=== PATIENT | female | born 1950 | race African-American/Black ===

== ENCOUNTER → 2017-09-12 | Outpatient (CLI) | payer OTHER, MEDICARE ==
--- NOTE | 2017-09-12 14:25 | RADIOLOGY REPORT (SQ) ---
EXAM DESCRIPTION: CHEST PA/LATERAL COMPLETED DATE/TIME: 09/12/2017 12:26 pm REASON FOR STUDY: ACUTE BRONCITIS COMPARISON: 09/15/2009 EXAM PARAMETERS: NUMBER OF VIEWS: two views TECHNIQUE: Digital Frontal and Lateral radiographic views of the chest acquired. RADIATION DOSE: NA LIMITATIONS: none FINDINGS: LUNGS AND PLEURA: Trace left pleural effusion. No evidence of pulmonary edema or pneumoni a. MEDIASTINUM AND HILAR STRUCTURES: No masses or contour abnormalities. HEART AND VASCULAR STRUCTURES: Heart normal size. No evidence for failure. BONES: No acute findings. HARDWARE: None in the chest. OTHER: No other significant finding. IMPRESSION: Trace left pleural effusion. TECHNICAL DOCUMENTATION: JOB ID: [id number] [employer]- All Rights Reserved
== END ==
LOC: OD 11:44
PROVIDERS: ATTEND Internal Medicine
DX: J20.9 Acute bronchitis, unspecified (principal)
CPT/HCPCS: 71020

== ENCOUNTER 2017-09-23 01:47 | Emergency (ER) | payer OTHER, MEDICARE ==
[2017-09-23 02:48] LABS: ABSOLUTE EOSINOPHILS # (AUTO) 0.1 10^3/uL (0.0-0.6); ABSOLUTE LYMPHOCYTES (AUTO) 1.9 10^3/uL (0.5-4.7); ABSOLUTE MONOCYTES (AUTO) 0.3 10^3/uL (0.1-1.4); ABSOLUTE NEUT (AUTO) 4.7 10^3/uL (1.7-8.2); BASOPHILS % (AUTO) 0.7 % (0-2); HEMOGLOBIN 11.4 g/dL (12.0-15.5); HGB HCT DIFFERENCE -0.8; LYMPHOCYTES % (AUTO) 26.4 % (13-45); MEAN CORPUSCULAR HEMOGLOBIN 27.6 pg (27.0-33.4); MEAN CORPUSCULAR HGB CONC 32.7 g/dL (32.0-36.0); MEAN CORPUSCULAR VOLUME 84 fl (80-97); MONOCYTES % (AUTO) 4.7 % (3-13); RED BLOOD COUNT 4.15 10^6/uL (3.72-5.28); RED CELL DISTRIBUTION WIDTH 13.2 % (11.5-14.0); SEGMENTED NEUTROPHILS % (AUTO) 67.2 % (42-78)
[2017-09-23] MEDS ORDERED: DIAZEPAM INJ 10 MG/2 ML DISP.SYRIN IV ONE (02:52)
[2017-09-23 02:56] LABS: ALANINE AMINOTRANSFERASE 31 U/L (9-52); ALBUMIN 3.6 g/dL (3.5-5.0); ALKALINE PHOSPHATASE 83 U/L (38-126); ANION GAP 11 (5-19); ASPARTATE AMINO TRANSFERASE 23 U/L (14-36); BILIRUBIN,DIRECT 0.2 mg/dL (0.0-0.4); BILIRUBIN,TOTAL 0.3 mg/dL (0.2-1.3); BLOOD UREA NITROGEN 15 mg/dL (7-20); CALCIUM 8.8 mg/dL (8.4-10.2); CARBON DIOXIDE 30 mmol/L (22-30); CHLORIDE 101 mmol/L (98-107); CREATININE RESULT 0.65 mg/dL (0.52-1.25); GLUCOSE 95 mg/dL (75-110); POTASSIUM 3.7 mmol/L (3.6-5.0); SODIUM 141.7 mmol/L (137-145)
--- NOTE | 2017-09-23 02:59 | ER Document Report ---
ED General - General Chief Complaint: Flank Pain Stated Complaint: FLANK PAIN WHEN BREATHING Time Seen by Provider: 09/23/17 02:19 Information source: Patient TRAVEL OUTSIDE OF THE [place] IN LAST 30 DAYS: No - HPI Patient complains to provider of: left sided pain, worse with deep breath Onset: This morning Onset/Duration: Gradual Quality of pain: Sharp Severity: Moderate Associated symptoms: None Exacerbated by: Movement, Coughing, Deep breathing Relieved by: Denies Similar symptoms previously: No Recently seen / treated by doctor: No Notes: pt. recently treated for strep throat and lung infection. She states she started with left sided pain that is underneath her left breast and radiates around almost to her back area. She says she has never had this pain before. She states that it is worse with deep breaths and movement of her torso. 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 She also stated that on 2 occasions today she felt dizzy and lightheaded. 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 [employer] Lives with: Family Family History: Reviewed & Not Pertinent Patient has suicidal ideation: No Patient has homicidal ideation: No - Past Medical History Cardiac Medical History: Reports: Hx Hypertension Pulmonary Medical History: Reports: None Neurological Medical History: Reports: None Endocrine Medical History: Reports: None Renal/ Medical History: Reports: None Malignancy Medical History: Reports: None GI Medical History: Reports: None Musculoskeltal Medical History: Reports None, Reports Hx Arthritis Past Surgical History: Reports: Hx Gynecologic Surgery - D&C, Hx Hysterectomy, Hx Orthopedic Surgery - foot surgery , shoulder repair, Hx Tubal Ligation - Immunizations Hx Diphtheria, Pertussis, Tetanus Vaccination: Yes Review of Systems - Review of Systems Constitutional: denies: Chills, Diaphoresis, Fever EENT: No symptoms reported Cardiovascular: Dizziness, Lightheaded. denies: Syncope Respiratory: No symptoms reported Gastrointestinal: Poor appetite Musculoskeletal: Joint swelling - right hand. denies: Back pain, Joint pain, Muscle pain, Muscle stiffness, Neck pain, Deformity, Leg swelling, Ankle swelling Skin: No symptoms reported Hematologic/Lymphatic: No symptoms reported Neurological/Psychological: No symptoms reported Physical Exam - Vital signs Vitals: Temp Pulse Resp BP Pulse Ox 98.8 F 96 22 H 207/88 H 96 09/23/17 01:48 09/23/17 01:48 09/23/17 01:48 09/23/17 01:48 09/23/17 01:48 - Notes Notes: PHYSICAL EXAMINATION: GENERAL: Well-appearing, well-nourished and in mild distress. HEAD: Atraumatic, normocephalic. EYES: Pupils equal round and reactive to light, extraocular movements intact, conjunctiva are normal. ENT: Nares patent, oropharynx clear without exudates. Moist mucous membranes. NECK: Normal range of motion, supple without lymphadenopathy LUNGS: Breath sounds clear to auscultation bilaterally and equal. No wheezes rales or rhonchi. HEART: Regular rate and rhythm without murmurs. She has tenderness over her left lateral lower rib area that is worse with palpation. There is no rash there. There is no subcu emphysema or crepitance. ABDOMEN: Soft, nontender, nondistended abdomen. No guarding, no rebound. No masses appreciated. Female : deferred Musculoskeletal: Normal range of motion, no pitting or edema. No cyanosis. Patient's right hand is mildly swollen but nontender. NEUROLOGICAL: Cranial nerves grossly intact. Normal speech, normal gait. Normal sensory, motor exams PSYCH: Normal mood, normal affect. SKIN: Warm, Dry, normal turgor, no rashes or lesions noted. Course - Re-evaluation Re-evalutation: 09/23/17 03:01 Patient had not taken her blood pressure medication losartan/HCTZ so I did give that to her in the emergency department. 09/23/17 05:34 09/23/17 05:35 I reviewed the findings of the lab work as well as the CAT scan with the patient and her friend. I did tell the patient that she can take Motrin starting in about 8 hours because I am giving her 1 dose of Toradol for the pleuritic-like chest pain that she is experiencing. I did tell the patient that she has a small pleural effusion and I explained to her. I told her she has to follow-up the primary medical doctor in 2 weeks to make sure this has resolved. If the fluid is still present she may need further evaluation to determine the etiology. I did give patient a work note for today as I wanted her to rest. Patient verbalized understanding I answered all her questions she was discharged home in stable condition - Vital Signs Vital signs: Temp Pulse Resp BP Pulse Ox 98.8 F 99 22 H 207/88 H 97 09/23/17 01:55 09/23/17 01:55 09/23/17 01:48 09/23/17 01:55 09/23/17 01:55 - Laboratory Result Diagrams: 09/23/17 02:20 09/23/17 02:20 Laboratory results interpreted by me: 09/23/17 09/23/17 09/23/17 02:20 02:20 03:47 Hgb 11.4 L Hct 35.0 L D-Dimer 3.54 H Urine Blood SMALL H Urine Urobilinogen 2.0 H Ur Leukocyte Esterase SMALL H - Diagnostic Test Radiology reviewed: Image reviewed, Reports reviewed Radiology results interpreted by me: 09/23/17 05:35 no PE. small left pleural effusion. - EKG Interpretation by Me EKG shows normal: Sinus rhythm Rate: Normal Rhythm: PVC's [place]/QRS: RBBB Discharge - Discharge Clinical Impression: Pleural effusion Condition: Stable Disposition: HOME, SELF-CARE Admitting Provider: Nila Instructions: Pleural Effusion ([facility]), Pleurisy ([facility]) Additional Instructions: Please follow-up with the primary medical doctor within 2 weeks for reevaluation. If the pleural effusion has not resolved further evaluation and testing may be necessary to determine the etiology. He can take Motrin 800 mg by mouth every 8 hours with food for the next 3 days. Please start taking that around 2 PM this afternoon as I already gave you a dose of medication like Motrin in your IV prior to leaving the emergency department today. Return to emergency department immediately if you have fevers, shortness of breath, passing out or any other concerns. Referrals: ANTONINO MCDONALD MD [Primary Care Provider] - Follow up as needed
--- NOTE | 2017-09-23 03:21 | RADIOLOGY REPORT (SQ) ---
EXAM DESCRIPTION: CHEST PA/LAT CLINICAL HISTORY: cough COMPARISON: 09/12/2017 FINDINGS: Frontal and lateral views of the chest. Tortuosity of thoracic aorta. Heart is not enlarged. Minimal left basilar opacity and small left pleural effusion. No pneumothorax. Degenerative change of the spine. Upper abdominal soft tissues are unremarkable. Elevation the left hemidiaphragm. IMPRESSION: 1. Minimal left basilar opacity and small left pleural effusion. Not significantly changed.
[2017-09-23 04:09] LABS: AMORPHOUS SEDIMENT,URINE TRACE /HPF; APPEARANCE,URINE CLOUDY; BILIRUBIN,URINE NEGATIVE (NEGATIVE); GLUCOSE, URINE NEGATIVE (NEGATIVE); KETONES,URINE NEGATIVE (NEGATIVE); LEUKOCYTE ESTERASE,URINE SMALL (NEGATIVE); NITRITE,URINE NEGATIVE (NEGATIVE); PROTEIN,URINE NEGATIVE (NEGATIVE); URINE SPECIFIC GRAVITY 1.021
--- NOTE | 2017-09-23 04:41 | RADIOLOGY REPORT (SQ) ---
EXAM DESCRIPTION: CT of the chest with contrast. CLINICAL HISTORY: sob COMPARISON: None Available. TECHNIQUE: CT of the chest obtained following the uncomplicated intravenous administration of iodinated contrast. Reformatted images of the chest available for evaluation. FINDINGS: Chest: No pulmonary embolus identified. Visualized thyroid gland is unremarkable. Atherosclerotic calcification of the thoracic aorta. May vessels have normal anatomic configuration. Cardiomegaly. No pericardial effusion. Coronary artery atherosclerosis. Small hiatal hernia. Scattered mediastinal lymph nodes are not enlarged by CT criteria. Lung windows demonstrate small left pleural effusion and left basilar atelectasis. No abnormalities of the visualized trachea or airways. Limited images of the upper abdomen demonstrate no abnormalities of the visualized liver, spleen, pancreas, adrenal glands, gallbladder, or kidneys. No destructive osseous lesions. Degenerative spondylosis of the thoracic spine. DLP: 550 mGycm IMPRESSION: 1. Very small left pleural effusion with minimal left basilar atelectasis. 2. Small hiatal hernia. 3. Cardiomegaly with coronary artery atherosclerosis. This exam was performed according to our departmental dose-optimization program, which includes automated exposure control, adjustment of the mA and/or kV according to patient size and/or use of iterative reconstruction technique.
[2017-09-23] MEDS ORDERED: KETOROLAC TROMETHAMINE INJ/PF 30 MG/1 ML SDV IV ONE (05:33)
[2017-09-23 05:52] VITALS: BP 198/80
--- NOTE | 2017-09-23 06:47 | EKG REPORT ---
SEVERITY:- ABNORMAL ECG - SINUS RHYTHM VENTRICULAR PREMATURE COMPLEX PROBABLE LEFT ATRIAL ABNORMALITY RIGHT BUNDLE BRANCH BLOCK : Confirmed by: Chente Bonilla 23-Sep-2017 06:46:45
== END 2017-09-23 05:25 | disposition home or self-care (01) ==
LOC: ER 01:47
DX: J90 Pleural effusion, not elsewhere classified (principal); R10.9 Unspecified abdominal pain; R42 Dizziness and giddiness
CPT/HCPCS: 93005; 99285; 96374; 96375; 36415; 85025; 80053; 81001; 84484; 85379; 71020; 71260; 93010; J3360; J1885

== ENCOUNTER 2017-10-17 10:05 | Emergency (ER) | payer OTHER, MEDICARE ==
--- NOTE | 2017-10-17 10:11 | ER Document Report ---
ED General - General Stated Complaint: ABDOMINAL PAIN Time Seen by Provider: 10/17/17 10:09 Notes: This is a 66-year-old female complaining of right upper quadrant pain radiating to her right shoulder. Intermittent shortness of breath. Diagnosed with a pleural effusion recently. Scheduled for bronchoscopy today. Says she has on and off fevers for a week. History of diverticulitis but no change in bowel patterns at this time. TRAVEL OUTSIDE OF THE [place] IN LAST 30 DAYS: No - HPI Onset: Last week Onset/Duration: Gradual Quality of pain: Achy, Cramping Severity: Moderate Pain Level: 2 Associated symptoms: None Exacerbated by: Denies - Related Data Allergies/Adverse Reactions: aspirin [Aspirin] Adverse Reaction (Intermediate, Verified 05/26/14 17:55) Nausea Home Medications: Current Home Medications Hydrochlorothiazide [Hydrochlorothiazide] 1 tab PO DAILY 10/17/17 [History] Past Medical History - General Information source: Patient - Social History Smoking Status: Never Smoker Frequency of alcohol use: None Drug Abuse: None Lives with: Family Family History: Reviewed & Not Pertinent - Past Medical History Cardiac Medical History: Reports: Hx Hypertension Renal/ Medical History: Denies: Hx Peritoneal Dialysis Musculoskeltal Medical History: Reports Hx Arthritis Past Surgical History: Reports: Hx Gynecologic Surgery - D&C, Hx Hysterectomy, Hx Orthopedic Surgery - foot surgery , shoulder repair, Hx Tubal Ligation - Immunizations Hx Diphtheria, Pertussis, Tetanus Vaccination: Yes Review of Systems - Review of Systems Constitutional: No symptoms reported EENT: No symptoms reported Cardiovascular: No symptoms reported Respiratory: No symptoms reported Gastrointestinal: Abdominal pain Genitourinary: No symptoms reported Female Genitourinary: No symptoms reported Musculoskeletal: No symptoms reported Skin: No symptoms reported Hematologic/Lymphatic: No symptoms reported Neurological/Psychological: No symptoms reported Physical Exam - Vital signs Vitals: Temp Pulse Resp BP Pulse Ox 99.4 F 102 H 18 130/64 H 96 10/17/17 10:22 10/17/17 10:22 10/17/17 10:22 10/17/17 10:22 10/17/17 10:22 Interpretation: Normal - General General appearance: Appears well, Alert - HEENT Head: Normocephalic, Atraumatic Eyes: Normal Pupils: PERRL - Respiratory Respiratory status: No respiratory distress Chest status: Nontender Breath sounds: Normal Chest palpation: Normal - Cardiovascular Rhythm: Regular Heart sounds: Normal auscultation Murmur: No - Abdominal Inspection: Normal Distension: No distension Bowel sounds: Normal Tenderness: Tender, Guarding. No: Rebound Organomegaly: No organomegaly - Back Back: Normal, Nontender - Extremities General upper extremity: Normal inspection, Nontender, Normal color, Normal ROM , Normal temperature General lower extremity: Normal inspection, Nontender, Normal color, Normal ROM , Normal temperature, Normal weight bearing. No: Stephane's sign - Neurological Neuro grossly intact: Yes Cognition: Normal Orientation: AAOx4 [place] Coma Scale Eye Opening: Spontaneous [place] Coma Scale Verbal: Oriented [place] Coma Scale Motor: Obeys Commands [place] Coma Scale Total: 15 Speech: Normal Motor strength normal: LUE, RUE, LLE, RLE Sensory: Normal - Psychological Associated symptoms: Normal affect, Normal mood - Skin Skin Temperature: Warm Skin Moisture: Dry Skin Color: Normal Course - Re-evaluation Re-evalutation: 10/17/17 13:42 Patient with extremely enlarged heart as seen on x-ray as compared to prior. Uncertain etiology. Radiologist was concerned enough to call as well. Ordered stat echocardiogram. Patient does have gallstones and sludge in her gallbladder.. BNP ordered. We will continue to workup 10/17/17 16:05 Patient feeling a little bit better. Echocardiogram was completed. 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 Patient has a normal EF. Does have some dilated right heart failure. Does have a trace pericardial effusion . Has some bilateral pleural effusions. Will consult with surgeon regarding her gallbladder to make sure this is not acute cholecystitis. Unlikely at this point. Patient is afebrile and in no acute distress at this time. The chest x-ray is significantly different than prior with a fairly enlarged right heart. Uncertain why. Could have pulmonary hypertension. Patient will likely need to be admitted. Will consult with surgeon and house builder as well as loss prevention guard come up with the plan of action. 10/17/17 16:21 10/17/17 16:31 CT angiogram has been ordered to make sure that this abnormally dilated right heart is not due to a embolism. Patient did have a CT chest approximately 20 days ago but was unremarkable for PE. Have ordered the angiogram at this time. Patient has been signed over to Dr. Todd for review of the angiogram and for treatment as appropriate including possible transfer for her to the facility that could do a right heart workup. - Vital Signs Vital signs: Temp Pulse Resp BP Pulse Ox 99.4 F 102 H 24 H 133/73 H 99 10/17/17 10:22 10/17/17 10:22 10/17/17 14:01 10/17/17 14:01 10/17/17 14:01 - Laboratory Result Diagrams: 10/17/17 13:28 10/17/17 13:28 Laboratory results interpreted by me: 10/17/17 10/17/17 10/17/17 12:27 13:28 13:28 WBC 3.8 L Hct 35.9 L Sodium 132.3 L Chloride 91 L AST 48 H Urine Protein 30 H Urine Ketones TRACE H Urine Blood MODERATE H Urine Urobilinogen 4.0 H - EKG Interpretation by Me EKG shows normal: Sinus rhythm, [place], QRS Complexes, ST-T Waves [place]/QRS: RBBB When compared to previous EKG there are: No significant change Discharge - Discharge Clinical Impression: Pleural effusion, Right upper quadrant pain Referrals: BERNICE MARAVILLA MD [Primary Care Provider] - Follow up as needed
[2017-10-17] MEDS ORDERED: FENTANYL CITRATE INJ/PF 100 MCG/2 ML AMPUL IV PRN (10:36)
[2017-10-17] MEDS: ONDANSETRON 4 MG TAB.RAPDIS PO PRN (12:18)
[2017-10-17 13:02] LABS: APPEARANCE,URINE CLOUDY; BILIRUBIN,URINE NEGATIVE (NEGATIVE); GLUCOSE, URINE NEGATIVE (NEGATIVE); KETONES,URINE TRACE mg/dL (NEGATIVE); LEUKOCYTE ESTERASE,URINE NEGATIVE (NEGATIVE); NITRITE,URINE NEGATIVE (NEGATIVE); PROTEIN,URINE 30 mg/dL (NEGATIVE); URINE SPECIFIC GRAVITY 1.019
[2017-10-17 13:03] LABS: COLOR,URINE YELLOW
--- NOTE | 2017-10-17 13:14 | RADIOLOGY REPORT (SQ) ---
EXAM DESCRIPTION: CHEST PA/LAT COMPLETED DATE/TIME: 10/17/2017 12:53 pm REASON FOR STUDY: chest pain COMPARISON: CT chest 09/23/2017 Two-view chest 09/23/2017, 09/12/2017 EXAM PARAMETERS: NUMBER OF VIEWS: two views TECHNIQUE: Digital Frontal and Lateral radiographic views of the chest acquired. RADIATION DOSE: NA LIMITATIONS: none FINDINGS: Over the series of exams, patient has developed massive cardiac silhouette enlargement. F indings are worrisome for large pericardial effusion. LUNGS AND PLEURA: Trace right, small left pleural effusion. There is bibasilar airspace disease atelectasis versus pneumonia. No pneumothorax. MEDIASTINUM AND HILAR STRUCTURES: No masses or contour abnormalities. HEART AND VASCULAR STRUCTURES: Today's study demonstrates massive cardiac silhouette size enlargement . This is new compared to 09/12/2017. Question pericardial effusion BONES: Osteoporotic. No acute change. HARDWARE: None in the chest. OTHER: No other significant finding. IMPRESSION: Significant enlargement of the cardiac silhouette size compared to 09/12/2017, question l arge pericardial effusion. There is mild bibasilar airspace disease with small pleural effusions, left slightly greater than rig ht TECHNICAL DOCUMENTATION: JOB ID: [id number] [employer]- All Rights Reserved
--- NOTE | 2017-10-17 13:24 | RADIOLOGY REPORT (SQ) ---
EXAM DESCRIPTION: U/S ABDOMEN LIMITED W/O DOP COMPLETED DATE/TIME: 10/17/2017 1:02 pm REASON FOR STUDY: RUQ pain COMPARISON: CT chest 09/23/2017 TECHNIQUE: Dynamic and static grayscale images acquired of the abdomen and recorded on PACS. Additio nal selected color Doppler and spectral images recorded. LIMITATIONS: Midline bowel gas FINDINGS: PANCREAS: Midline pancreas unremarkable LIVER: No masses. Echotexture normal. LIVER VASCULATURE: Normal directional flow of the main portal vein and hepatic veins. GALLBLADDER: Stones and sludge are present in the gallbladder. No gallbladder wall thickening or per icholecystic fluid. ULTRASOUND-DETECTED LINTON'S SIGN: Negative. INTRAHEPATIC DUCTS AND COMMON DUCT: CBD and intrahepatic ducts normal caliber. No filling defects. D istal most common duct not well seen due to duodenum gas INFERIOR VENA CAVA: Normal flow. AORTA: No aneurysm. RIGHT KIDNEY: Normal size. Normal echogenicity. No solid or suspicious masses. No hydronephrosis. No calcifications. PERITONEAL AND RIGHT PLEURAL SPACE: Trace right pleural fluid OTHER: No other significant findings. IMPRESSION: Stones and sludge in the gallbladder. No gallbladder wall thickening, pericholecystic f luid, or sonographic Linton's sign Trace right pleural fluid TECHNICAL DOCUMENTATION: JOB ID: [id number] [employer]- All Rights Reserved
[2017-10-17 13:48] LABS: ABSOLUTE LYMPHOCYTES (AUTO) 0.9 10^3/uL (0.5-4.7); ABSOLUTE MONOCYTES (AUTO) 0.2 10^3/uL (0.1-1.4); ABSOLUTE NEUT (AUTO) 2.6 10^3/uL (1.7-8.2); BASOPHILS % (AUTO) 0.5 % (0-2); EOSINOPHILS % (AUTO) 0.8 % (0-6); HEMATOCRIT 35.9 % (36.0-47.0); LYMPHOCYTES % (AUTO) 24.3 % (13-45); MEAN CORPUSCULAR HEMOGLOBIN 27.1 pg (27.0-33.4); MEAN CORPUSCULAR HGB CONC 33.4 g/dL (32.0-36.0); MEAN CORPUSCULAR VOLUME 81 fl (80-97); MONOCYTES % (AUTO) 6.1 % (3-13); PLATELET COUNT 383 10^3/uL (150-450); RED BLOOD COUNT 4.43 10^6/uL (3.72-5.28); RED CELL DISTRIBUTION WIDTH 13.7 % (11.5-14.0); SEGMENTED NEUTROPHILS % (AUTO) 68.3 % (42-78); TOTAL CELLS COUNTED % (AUTO) 100 %; WHITE BLOOD COUNT 3.8 10^3/uL (4.0-10.5)
[2017-10-17 14:13] LABS: NT PRO BNP 291 pg/mL (5-900)
[2017-10-17 14:14] LABS: ALANINE AMINOTRANSFERASE 33 U/L (9-52); ALBUMIN 3.5 g/dL (3.5-5.0); ALKALINE PHOSPHATASE 116 U/L (38-126); ANION GAP 13 (5-19); ASPARTATE AMINO TRANSFERASE 48 U/L (14-36); BILIRUBIN,DIRECT 0.4 mg/dL (0.0-0.4); BILIRUBIN,TOTAL 0.5 mg/dL (0.2-1.3); BLOOD UREA NITROGEN 18 mg/dL (7-20); CALCIUM 8.9 mg/dL (8.4-10.2); CARBON DIOXIDE 28 mmol/L (22-30); CHLORIDE 91 mmol/L (98-107); GLUCOSE 101 mg/dL (75-110); POTASSIUM 4.1 mmol/L (3.6-5.0); SODIUM 132.3 mmol/L (137-145); TOTAL PROTEIN 7.8 g/dL (6.3-8.2)
[2017-10-17 14:15] LABS: TROPONIN I < 0.012 ng/mL
--- NOTE | 2017-10-17 17:11 | EKG REPORT ---
SEVERITY:- ABNORMAL ECG - SINUS RHYTHM RIGHT BUNDLE BRANCH BLOCK : Confirmed by: Micheal Borges MD 17-Oct-2017 17:10:47
--- NOTE | 2017-10-17 17:21 | PDOC CONSULTATION ---
Consultation Consult Date: 10/17/17 Attending physician:: AMANDA ZAMAN Consult reason:: Gallbladder disease History of Present Illness Admission Date/PCP: BERNICE MARAVILLA MD History of Present Illness: KAYE KILPATRICK is a 66 year old female Who presents emergency department complaining of a several month history of shortness of breath abdominal pain feeling poorly. Currently she has been seen on an outpatient basis by multiple providers and given multiple treatments for what was felt to be musculoskeletal problems. She was seen in the emergency department last month where she was worked up for pulmonary embolus and this was negative. Patient was evaluated by Dr. Rueda, talent sourcer, who performed an echocardiogram which revealed preserved left ventricular ejection fraction, but the right heart was dilated. Patient had a gallbladder ultrasound which showed sludge. Surgery was consulted. As stated patient has been feeling poorly for several months. She is still eating, having bowel movements and denies nausea vomiting. Of note patient has a history of hepatitis C, received antiviral therapy in 2017. Past Medical History Cardiac Medical History: Reports: Hypertension Musculoskeltal Medical History: Reports: Arthritis Infectious Medical History: Reports: Hepatitis C Past Surgical History Past Surgical History: Reports: Hysterectomy, Orthopedic Surgery - foot surgery , shoulder repair, Tubal Ligation Social History Lives with: Family Smoking Status: Never Smoker Family History Family History: Reviewed & Not Pertinent Parental Family History Reviewed: Yes Children Family History Reviewed: Yes Sibling(s) Family History Reviewed.: Yes Medication/Allergy Home Medications: Hydrochlorothiazide [Hydrochlorothiazide] 1 tab PO DAILY 10/17/17 Allergies/Adverse Reactions: aspirin [Aspirin] Adverse Reaction (Intermediate, Verified 05/26/14 17:55) Nausea Review of Systems Constitutional: PRESENT: night sweats Eyes: ABSENT: visual disturbances Ears: ABSENT: hearing changes Cardiovascular: PRESENT: dyspnea on exertion, edema, orthropnea Respiratory: PRESENT: dyspnea Musculoskeletal: PRESENT: joint swelling Physical Exam Vital Signs: Temp Pulse Resp BP Pulse Ox 99.4 F 102 H 24 H 133/73 H 99 10/17/17 10:22 10/17/17 10:22 10/17/17 14:01 10/17/17 14:01 10/17/17 14:01 Intake & Output 10/16/17 10/17/17 10/18/17 06:59 06:59 06:59 Weight 100.244 kg General appearance: PRESENT: mild distress, other - Patient appears very sleepy Eye exam: PRESENT: EOMI Mouth exam: PRESENT: dry mucosa Neck exam: PRESENT: full ROM Respiratory exam: PRESENT: rales Cardiovascular exam: PRESENT: RRR GI/Abdominal exam: PRESENT: other - Soft, slightly distended. No peritoneal signs. There is right upper quadrant and left upper quadrant tenderness. Focused psych exam: PRESENT: other - Awake and alert and oriented 4. Results Laboratory Results: 10/17/17 13:28 10/17/17 13:28 10/17/17 10/17/17 10/17/17 12:27 13:28 13:28 WBC 3.8 L RBC 4.43 Hgb 12.0 Hct 35.9 L MCV 81 MCH 27.1 MCHC 33.4 RDW 13.7 Plt Count 383 Seg Neutrophils % 68.3 Lymphocytes % 24.3 Monocytes % 6.1 Eosinophils % 0.8 Basophils % 0.5 Absolute Neutrophils 2.6 Absolute Lymphocytes 0.9 Absolute Monocytes 0.2 Absolute Eosinophils 0.0 Absolute Basophils 0.0 Sodium 132.3 L Potassium 4.1 Chloride 91 L Carbon Dioxide 28 Anion Gap 13 BUN 18 Creatinine 0.71 Est GFR ( Amer) > 60 Est GFR (Non-Af Amer) > 60 Glucose 101 Calcium 8.9 Total Bilirubin 0.5 AST 48 H ALT 33 Alkaline Phosphatase 116 Total Protein 7.8 Albumin 3.5 Lipase 112.0 Urine Color YELLOW Urine Appearance CLOUDY Urine pH 5.0 Ur Specific [place] 1.019 Urine Protein 30 H Urine Glucose (UA) NEGATIVE Urine Ketones TRACE H Urine Blood MODERATE H Urine Nitrite NEGATIVE Ur Leukocyte Esterase NEGATIVE Urine WBC (Auto) 6 Urine RBC (Auto) 7 10/17/17 13:28 Troponin I < 0.012 NT-Pro-B Natriuret Pep 291 Impressions: Abdomen Ultrasound 10/17/17 10:19 IMPRESSION: Stones and sludge in the gallbladder. No gallbladder wall thickening, pericholecystic fluid, or sonographic Linton's sign Trace right pleural fluid Chest X-Ray 10/17/17 11:51 IMPRESSION: Significant enlargement of the cardiac silhouette size compared to 09/12/2017, question large pericardial effusion. There is mild bibasilar airspace disease with small pleural effusions, left slightly greater than right Assessment & Plan - Diagnosis (1) Right upper quadrant pain Plan: The patient has chronic, worsening shortness of breath, upper abdominal pain, right-sided worse than left. Reviewing her chest x-ray from last month compared to today, and her CT scan from last month as well as echocardiogram today, it appears the patient is suffering from progressive cardio respiratory decompensation. I believe the right sided heart dysfunction may be contributing to the congestion well as peripheral edema. The gallbladder with sludge is an incidental finding. Recommendations: 1. I do not recommend surgical intervention on the gallbladder. 2. I suggested to the emergency department as well as Dr. Rueda that further consideration be given to the cardiorespiratory problem: Frequent pulmonary embolus may need to be ruled out again. - Time Time Spent: 50 to 70 Minutes Smoking Cessation Education: over 10 minutes
--- NOTE | 2017-10-17 19:13 | RADIOLOGY REPORT (SQ) ---
EXAM DESCRIPTION: CT CHEST WITHOUT COMPLETED DATE/TIME: 10/17/2017 6:57 pm REASON FOR STUDY: sob, chest pain COMPARISON: 09/23/2017 TECHNIQUE: CT scan performed of the chest without intravenous contrast. Images reviewed with lung, soft tissue and bone windows. Reconstructed coronal and sagittal MPR images reviewed. All images st ored on PACS. All CT scanners at this facility use dose modulation, iterative reconstruction, and/or weight based d osing when appropriate to reduce radiation dose to as low as reasonably achievable (ALARA). [facility]: Dose Right [facility]: CareDose [facility]: Dose Right [facility]: Teradose 4D [facility]: Smart Medbox RADIATION DOSE: CT Rad equipment meets quality standard of care and radiation dose reduction techniq ues were employed. CTDIvol: 2.8 - 42.7 mGy. DLP: 558 mGy-cm. mGy. LIMITATIONS: Inadequate peripheral IV access. FINDINGS: LUNGS AND PLEURA: Trace pleural effusions. Subsegmental dependent airspace disease. HILAR AND MEDIASTINAL STRUCTURES: No identified masses or abnormal nodes. No obvious aneurysm. HEART AND VASCULAR STRUCTURES: Moderate pericardial effusion. UPPER ABDOMEN: No acute findings. THYROID AND OTHER SOFT TISSUES: No masses. No adenopathy. BONES: No significant finding. HARDWARE: None in the chest. OTHER: No other significant findings. IMPRESSION: Moderate pericardial effusion, which is a new finding. Small pleural effusions and depe ndent airspace disease. TECHNICAL DOCUMENTATION: JOB ID: [id number] Quality ID # [id number]: Final reports with documentation of one or more dose reduction techniques (e.g., Au tomated exposure control, adjustment of the mA and/or kV according to patient size, use of iterative reconstruction technique) 2010 [employer]- All Rights Reserved
[2017-10-17] MEDS ORDERED: KETOROLAC TROMETHAMINE INJ/PF 30 MG/1 ML SDV IV ONE (19:22)
--- NOTE | 2017-10-17 19:46 | XCELERA REPORT ---
[address] [address] Transthoracic Echocardiogram Report Name: KAYE KILPATRICK Age: 66 yrs Gender: Female : 1950 Patient Status: Emergency Patient Location: ER Study Date: 10/17/2017 03:00 PM Height: 64 in Weight: 221 lb BSA: 2.0 m2 Procedure: A two-dimensional transthoracic echocardiogram with color flow and Doppler was performed. The study was technically difficult with many images being suboptimal in quality. Reason For Study: CARDIOMEGALY (Enlarged Heart). History: CARDIOMEGALY (Enlarged Heart). Ordering Physician: JOELLEN WARD Performed By: Daria Lopez Interpretation Summary Recommend ZAINAB and Right heart cayh.( For RH pressures and assessment of TR severity. The left ventricle is normal in size. There is normal left ventricular wall thickness. LV EF is > than 65% Left ventricular systolic function is normal. Doppler measurements suggest impaired left ventricular relaxation, which is associated with grade I/IV or mild diastolic dysfunction The left ventricular wall motion is normal. There is no thrombus. There is no evidence of mitral valve prolapse. There is no mitral valve stenosis. There is a trace to mild amount of mitral regurgitation The aortic valve is mildly calcified There is no aortic valve stenosis There is no LVOT obstruction. No aortic regurgitation is present. There is no tricuspid stenosis. Poor interogation of Tricuspid valve.Probably moderate TR.Difficult to assess RVSP.Probaly lies between 52 to 68 mm of Hg , with RA mean of 5.Needs Right heart for accurate Right heart pressures. There is no pulmonic valvular stenosis. There is a trace amount of pulmonic regurgitation Small pericardial effusion eith no tamponade. Recommend ZAINAB and Right heart cayh.( For RH pressures and assessment of TR severity. Probably normal LA andprobably mildly enalarged RA sizes. MMode/2D Measurements & Calculations RVDd: 2.9 cm LVIDd: 4.2 cm FS: 38.8 % Ao root diam: 2.3 cm IVSd: 0.95 cm LVIDs: 2.6 cm EDV(Teich): 79.8 ml LVPWd: 0.90 cm ESV(Teich): 24.3 ml Ao root area: 4.1 cm2 EF(Teich): 69.5 % Doppler Measurements & Calculations MV E max hernan: MV dec slope: Ao V2 max: LV V1 max P.4 cm/sec 146.2 cm/sec 5.1 mmHg MV A max hernan: 303.0 cm/sec2 Ao max PG: LV V1 max: 76.6 cm/sec MV dec time: 8.6 mmHg 113.1 cm/sec MV E/A: 0.88 0.22 sec PA V2 max: PI end-d hernan: TR max hernan: 93.3 cm/sec 104.2 cm/sec 319.3 cm/sec PA max PG: TR max P.5 mmHg 42.6 mmHg Left Ventricle The left ventricle is normal in size. There is normal left ventricular wall thickness. LV EF is > than 65%. Left ventricular systolic function is normal. Doppler measurements suggest impaired left ventricular relaxation, which is associated with grade I/IV or mild diastolic dysfunction. The left ventricular wall motion is normal. There is no thrombus. There is no ventricular septal defect visualized. Right Ventricle Not well visualised.Probably mild RVH , with enlarged RV.Probably normal RV systolic function. Atria Probably normal LA andprobably mildly enalarged RA sizes. The interatrial septum is intact with no evidence for an atrial septal defect. Mitral Valve There is no evidence of mitral valve prolapse. There is no vegetation seen on the mitral valve. There is no mitral valve stenosis. There is a trace to mild amount of mitral regurgitation. Aortic Valve The aortic valve is mildly calcified. There is no aortic valvular vegetation. There is no aortic valve stenosis. There is no LVOT obstruction. No aortic regurgitation is present. Tricuspid Valve There is no tricuspid stenosis. Poor interogation of Tricuspid valve.Probably moderate TR.Difficult to assess RVSP.Probaly lies between 52 to 68 mm of Hg , with RA mean of 5.Needs Right heart for accurate Right heart pressures. Pulmonic Valve There is no pulmonic valvular stenosis. There is a trace amount of pulmonic regurgitation. Great Vessels The aortic root is normal size. Effusions Small pericardial effusion eith no tamponade. : JOELLEN WARD > Lien Rueda
[2017-10-17] MEDS ORDERED: TRAZODONE HCL 50 MG TABLET PO ONE (22:48)
[2017-10-17] MEDS ORDERED: TRAMADOL HCL 50 MG TABLET PO PRN (22:48)
[2017-10-18] MEDS ORDERED: ENOXAPARIN SODIUM INJ 30 MG/0.3 ML DISP.SYRIN SUBCUT SCH (06:30)
[2017-10-18] MEDS ORDERED: ENOXAPARIN SODIUM INJ 30 MG/0.3 ML DISP.SYRIN SUBCUT ONE (08:30)
--- NOTE | 2017-10-18 15:25 | ER Document Report ---
Doctor's Note Notes: 10/18/17 15:25 Patient complains of pain all over. She was given Ultram earlier this morning and that has not helped. I will give her a single Percocet and see if that helps.
[2017-10-18] MEDS ORDERED: OXYCODONE-ACETAMINOPHEN 5-325 MG TABLET PO ONE (15:26)
[2017-10-18] MEDS: ENOXAPARIN SODIUM INJ 30 MG/0.3 ML DISP.SYRIN SUBCUT SCH (19:26)
--- NOTE | 2017-10-19 00:44 | ER Document Report ---
Doctor's Note Notes: 10/19/17 00:42 Patient requests pain medication. States Percocet worked well previously, minimal benefit from tramadol. Vital signs are stable. Percocet 1 tab every 4 hours as needed ordered.
[2017-10-19] MEDS: OXYCODONE-ACETAMINOPHEN 5-325 MG TABLET PO PRN ×2 (00:46→13:13)
--- NOTE | 2017-10-19 06:14 | ER Document Report ---
Doctor's Note Notes: 10/19/17 06:13 I did a quick reevaluation the patient. She says she has no pain or nausea. She feels well. Her vital signs have been stable throughout the night. She has no concerns or complaints at this time. We are still waiting for bed placement at the living facility. Dictation of this chart was performed using voice recognition software; therefore, there may be some unintended grammatical errors.
[2017-10-19] MEDS: ENOXAPARIN SODIUM INJ 30 MG/0.3 ML DISP.SYRIN SUBCUT SCH ×2 (06:23→19:02)
[2017-10-19] MEDS: ONDANSETRON 4 MG TAB.RAPDIS PO PRN (06:52)
--- NOTE | 2017-10-19 14:55 | RADIOLOGY REPORT (SQ) ---
EXAM DESCRIPTION: CHEST PA/LAT COMPLETED DATE/TIME: 10/19/2017 2:46 pm REASON FOR STUDY: chest pain COMPARISON: 10/17/2017. TECHNIQUE: Frontal and lateral radiographic views of the chest acquired. NUMBER OF VIEWS: Two view. LIMITATIONS: None. FINDINGS: LUNGS AND PLEURA: Persistent diminished aeration in the left base with trace bilateral ple ural fluid. Slightly progressive vascular congestion. No pneumothorax. MEDIASTINUM AND HILAR STRUCTURES: Stable contours. HEART AND VASCULAR STRUCTURES: Marked cardiomegaly, as before. Patient has known pericardial effusio n. BONES: No acute findings. HARDWARE: None in the chest. OTHER: No other significant finding. IMPRESSION: 1. Vascular congestion is slightly progressive. Otherwise similar changes to prior. TECHNICAL DOCUMENTATION: JOB ID: [id number] [employer] [facility]- All Rights Reserved
[2017-10-19 15:48] LABS: ABSOLUTE EOSINOPHILS # (AUTO) 0.1 10^3/uL (0.0-0.6); ABSOLUTE LYMPHOCYTES (AUTO) 1.1 10^3/uL (0.5-4.7); ABSOLUTE MONOCYTES (AUTO) 0.4 10^3/uL (0.1-1.4); BASOPHILS % (AUTO) 0.8 % (0-2); EOSINOPHILS % (AUTO) 1.2 % (0-6); HEMATOCRIT 31.4 % (36.0-47.0); HEMOGLOBIN 10.1 g/dL (12.0-15.5); LYMPHOCYTES % (AUTO) 19.7 % (13-45); MEAN CORPUSCULAR HEMOGLOBIN 26.5 pg (27.0-33.4); MEAN CORPUSCULAR HGB CONC 32.2 g/dL (32.0-36.0); MEAN CORPUSCULAR VOLUME 82 fl (80-97); MONOCYTES % (AUTO) 6.6 % (3-13); PLATELET COUNT 368 10^3/uL (150-450); RED BLOOD COUNT 3.81 10^6/uL (3.72-5.28); RED CELL DISTRIBUTION WIDTH 13.7 % (11.5-14.0); SEGMENTED NEUTROPHILS % (AUTO) 71.7 % (42-78); TOTAL CELLS COUNTED % (AUTO) 100 %; WHITE BLOOD COUNT 5.5 10^3/uL (4.0-10.5)
[2017-10-19 16:11] LABS: ALANINE AMINOTRANSFERASE 39 U/L (9-52); ALBUMIN 3.2 g/dL (3.5-5.0); ALKALINE PHOSPHATASE 105 U/L (38-126); ANION GAP 10 (5-19); ASPARTATE AMINO TRANSFERASE 70 U/L (14-36); BILIRUBIN,DIRECT 0.5 mg/dL (0.0-0.4); BILIRUBIN,TOTAL 0.6 mg/dL (0.2-1.3); BLOOD UREA NITROGEN 27 mg/dL (7-20); CALCIUM 8.8 mg/dL (8.4-10.2); CARBON DIOXIDE 30 mmol/L (22-30); CHLORIDE 90 mmol/L (98-107); GLUCOSE 110 mg/dL (75-110); LIPASE 119.8 U/L (23-300); POTASSIUM 4.7 mmol/L (3.6-5.0); SODIUM 130.4 mmol/L (137-145); TOTAL PROTEIN 7.2 g/dL (6.3-8.2)
[2017-10-19 16:30] LABS: TROPONIN I 0.077 ng/mL
[2017-10-19] MEDS ORDERED: ENOXAPARIN SODIUM INJ 30 MG/0.3 ML DISP.SYRIN SUBCUT SCH (17:00)
--- NOTE | 2017-10-19 18:38 | EKG REPORT ---
SEVERITY:- ABNORMAL ECG - SINUS TACHYCARDIA RIGHT BUNDLE BRANCH BLOCK : Confirmed by: Micheal Borges MD 19-Oct-2017 18:38:00
[2017-10-19] MEDS ORDERED: ACETAMINOPHEN 325 MG TABLET PO ONE (19:15)
[2017-10-19 19:46] VITALS: BP 122/64
== END 2017-10-19 19:46 | disposition short-term general hospital (02) ==
LOC: ER 10:05
DX: J90 Pleural effusion, not elsewhere classified (principal); R10.11 Right upper quadrant pain; M25.511 Pain in right shoulder
CPT/HCPCS: 93005 ×2; 99285; 96372; 96374; 96375; 36415; 83690; 85025; 80053; 81001; 84484; 83880; 93306; 71046 ×2; 76705; 71250; 93010 ×2; S0119 ×2; J3010; J1885; J1650 ×2

== ENCOUNTER 2017-11-20 20:58 | Emergency (ER) | payer OTHER, MEDICARE ==
[2017-11-20 21:09] VITALS: BP 171/75
== END 2017-11-20 21:00 | disposition left against medical advice (07) ==
LOC: ER 20:58
DX: Z53.21 Procedure and treatment not carried out due to patient leaving prior to being seen by health care provider (principal)

== ENCOUNTER 2017-12-01 17:38 | Inpatient (IN) | payer OTHER, MEDICARE ==
[2017-12-01] MEDS ORDERED: HYDROMORPHONE HCL INJ/PF 2 MG/ML AMPULE IV ONE (18:18)
[2017-12-01] MEDS ORDERED: ONDANSETRON HCL INJ/PF 4 MG/2 ML SDV IV ONE (18:18)
[2017-12-01] MEDS ORDERED: NORMAL SALINE 1000 ML 1,000 ML IV ONE ×3 (18:18→23:33)
--- NOTE | 2017-12-01 18:19 | ER Document Report ---
ED Medical Screen (RME) - General Chief Complaint: Vomiting Stated Complaint: STOMACH PAIN Time Seen by Provider: 12/01/17 18:15 Mode of Arrival: Ambulatory Information source: Patient Notes: 67-year-old female presents with epigastric abdominal pain vomiting over the past 3 hours. Patient denies any previous similar episodes patient has had a total hysterectomy no other abdominal surgeries I have greeted and performed a rapid initial assessment of this patient. A comprehensive ED assessment and evaluation of the patient, analysis of test results and completion of the medical decision making process will be conducted by additional ED providers. PHYSICAL EXAMINATION: GENERAL: appears in moderate distress HEAD: Atraumatic, normocephalic. EYES: Pupils equal round extraocular movements intact, conjunctiva are normal. ENT: Nares patent NECK: Normal range of motion LUNGS: No respiratory distress Musculoskeletal: Normal range of motion NEUROLOGICAL: Normal speech, normal gait. PSYCH: Normal mood, normal affect. SKIN: Warm, Dry, normal turgor, no rashes or lesions noted. TRAVEL OUTSIDE OF THE [place] IN LAST 30 DAYS: No - Related Data Allergies/Adverse Reactions: aspirin [Aspirin] Adverse Reaction (Intermediate, Verified 11/20/17 21:49) Nausea Past Medical History - Social History Frequency of alcohol use: None - Past Medical History Cardiac Medical History: Reports: Hx Hypertension Renal/ Medical History: Denies: Hx Peritoneal Dialysis Musculoskeltal Medical History: Reports Hx Arthritis Past Surgical History: Reports: Hx Gynecologic Surgery - D&C, Hx Hysterectomy, Hx Orthopedic Surgery - foot surgery , shoulder repair, Hx Tubal Ligation - Immunizations Hx Diphtheria, Pertussis, Tetanus Vaccination: Yes Physical Exam - Vital signs Vitals: Temp Pulse Resp BP Pulse Ox 98.7 F 106 H 20 196/98 H 97 12/01/17 17:44 12/01/17 17:44 12/01/17 17:44 12/01/17 17:44 12/01/17 17:44 Course - Vital Signs Vital signs: Temp Pulse Resp BP Pulse Ox 98.7 F 106 H 20 196/98 H 97 12/01/17 17:44 12/01/17 17:44 12/01/17 17:44 12/01/17 17:44 12/01/17 17:44 Doctor's Discharge - Discharge Referrals: MAGED MARIN MD [Primary Care Provider] - Follow up as needed
[2017-12-01 19:49] LABS: ABSOLUTE BASOPHILS # (AUTO) 0.1 10^3/uL (0.0-0.2); ABSOLUTE LYMPHOCYTES (AUTO) 1.3 10^3/uL (0.5-4.7); ABSOLUTE MONOCYTES (AUTO) 0.6 10^3/uL (0.1-1.4); ABSOLUTE NEUT (AUTO) 12.2 10^3/uL (1.7-8.2); BASOPHILS % (AUTO) 0.5 % (0-2); EOSINOPHILS % (AUTO) 0.1 % (0-6); HEMATOCRIT 40.9 % (36.0-47.0); HEMOGLOBIN 12.9 g/dL (12.0-15.5); LYMPHOCYTES % (AUTO) 9.4 % (13-45); MEAN CORPUSCULAR HEMOGLOBIN 27.1 pg (27.0-33.4); MEAN CORPUSCULAR HGB CONC 31.5 g/dL (32.0-36.0); MEAN CORPUSCULAR VOLUME 86 fl (80-97); MONOCYTES % (AUTO) 4.1 % (3-13); PLATELET COUNT 217 10^3/uL (150-450); RED BLOOD COUNT 4.75 10^6/uL (3.72-5.28); RED CELL DISTRIBUTION WIDTH 18.7 % (11.5-14.0); SEGMENTED NEUTROPHILS % (AUTO) 85.9 % (42-78); TOTAL CELLS COUNTED % (AUTO) 100 %; WHITE BLOOD COUNT 14.2 10^3/uL (4.0-10.5)
[2017-12-01 20:11] LABS: ALANINE AMINOTRANSFERASE 197 U/L (9-52); ALBUMIN 3.9 g/dL (3.5-5.0); ALKALINE PHOSPHATASE 135 U/L (38-126); ANION GAP 10 (5-19); ASPARTATE AMINO TRANSFERASE 433 U/L (14-36); BILIRUBIN,DIRECT 0.7 mg/dL (0.0-0.4); BILIRUBIN,TOTAL 0.7 mg/dL (0.2-1.3); BLOOD UREA NITROGEN 15 mg/dL (7-20); CALCIUM 9.3 mg/dL (8.4-10.2); CARBON DIOXIDE 27 mmol/L (22-30); CHLORIDE 105 mmol/L (98-107); GLUCOSE 146 mg/dL (75-110); POTASSIUM 4.6 mmol/L (3.6-5.0); TOTAL PROTEIN 7.4 g/dL (6.3-8.2)
--- NOTE | 2017-12-01 20:22 | ER Document Report ---
ED General - General Chief Complaint: Vomiting Stated Complaint: STOMACH PAIN Time Seen by Provider: 12/01/17 18:15 Mode of Arrival: Ambulatory TRAVEL OUTSIDE OF THE [place] IN LAST 30 DAYS: No - HPI Patient complains to provider of: Nausea vomiting epigastric abdominal pain Notes: Patient coming in today for epigastric pain. Patient states today she was eating donnelly and areli greens at the which she is to develop epigastric abdominal pain with nausea vomiting states no diarrhea. Patient denies fevers chills. Patient resting comfortably upon my evaluation drinking oral contrast. Patient states at this time she has feeling much better. Reviewed previous visits to the patient recently here with a ultrasound showing gallstones and sludge. Patient states she has not followed up with surgery at this time. Patient states she has an appointment for [facility] tomorrow for a rheumatological disorder which patient cannot give any further information about. - Related Data Allergies/Adverse Reactions: aspirin [Aspirin] Adverse Reaction (Intermediate, Verified 11/20/17 21:49) Nausea Past Medical History - General Information source: Patient - Social History Smoking Status: Never Smoker Frequency of alcohol use: None Family History: Reviewed & Not Pertinent Patient has suicidal ideation: No Patient has homicidal ideation: No - Past Medical History Cardiac Medical History: Reports: Hx Hypertension Renal/ Medical History: Denies: Hx Peritoneal Dialysis Musculoskeltal Medical History: Reports Hx Arthritis Past Surgical History: Reports: Hx Gynecologic Surgery - D&C, Hx Hysterectomy, Hx Orthopedic Surgery - foot surgery , shoulder repair, Hx Tubal Ligation - Immunizations Hx Diphtheria, Pertussis, Tetanus Vaccination: Yes Review of Systems - Review of Systems Constitutional: No symptoms reported EENT: No symptoms reported Cardiovascular: No symptoms reported Respiratory: No symptoms reported Gastrointestinal: Abdominal pain, Nausea, Vomiting Genitourinary: No symptoms reported Female Genitourinary: No symptoms reported Musculoskeletal: No symptoms reported Skin: No symptoms reported Hematologic/Lymphatic: No symptoms reported Neurological/Psychological: No symptoms reported -: Yes All other systems reviewed and negative Physical Exam - Vital signs Vitals: Temp Pulse Resp BP Pulse Ox 98.7 F 106 H 20 196/98 H 97 12/01/17 17:44 12/01/17 17:44 12/01/17 17:44 12/01/17 17:44 12/01/17 17:44 Interpretation: Normal - General General appearance: Appears well, Alert - HEENT Head: Normocephalic, Atraumatic Eyes: Normal Pupils: PERRL - Respiratory Respiratory status: No respiratory distress Chest status: Nontender Breath sounds: Normal Chest palpation: Normal - Cardiovascular Rhythm: Regular Heart sounds: Normal auscultation Murmur: No - Abdominal Inspection: Normal Distension: No distension Bowel sounds: Normal Tenderness: Nontender Organomegaly: No organomegaly - Back Back: Normal, Nontender - Extremities General upper extremity: Normal inspection, Nontender, Normal color, Normal ROM , Normal temperature General lower extremity: Normal inspection, Nontender, Normal color, Normal ROM , Normal temperature, Normal weight bearing. No: Stephane's sign - Neurological Neuro grossly intact: Yes Cognition: Normal Orientation: AAOx4 Eloy Coma Scale Eye Opening: Spontaneous [place]oy Coma Scale Verbal: Oriented [place] Coma Scale Motor: Obeys Commands [place] Coma Scale Total: 15 Speech: Normal Motor strength normal: LUE, RUE, LLE, RLE Sensory: Normal - Psychological Associated symptoms: Normal affect, Normal mood - Skin Skin Temperature: Warm Skin Moisture: Dry Skin Color: Normal Course - Re-evaluation Re-evalutation: 12/01/17 20:21 Patient evaluated now resting comfortably. Abdomen soft nontender. With the patient's history of gallstones will check conference of laboratory panel to evaluate for signs of biliary obstruction. Patient was seen in triage and a CT scan with oral contrast was ordered. We will continue with this. 12/02/17 01:46 Patient's laboratory studies show signs of pancreatitis. No elevation in abilities. CT scan showed mild intrahepatic duct dilatation. There is also some mild gallbladder wall thickening. Did discuss with the surgeon on-call Dr. Mcclellan he recommends medical admission no need for surgical intervention at this time. I did discuss with the hospitalist and the patient states her PCP is Dr. Stephen. Patient otherwise looks very well as received IV fluids will continue to make n.p.o. has not required any further pain medication since her initial arrival. Patient will be admitted to the telemetry - Vital Signs Vital signs: Temp Pulse Resp BP Pulse Ox 98.4 F 84 14 175/82 H 100 12/02/17 01:10 12/02/17 01:10 12/02/17 01:01 12/02/17 01:01 12/02/17 01:10 - Laboratory Result Diagrams: 12/01/17 19:40 12/01/17 19:40 Laboratory results interpreted by me: 12/01/17 12/01/17 19:40 19:40 WBC 14.2 H MCHC 31.5 L RDW 18.7 H Seg Neutrophils % 85.9 H Lymphocytes % 9.4 L Absolute Neutrophils 12.2 H Glucose 146 H Direct Bilirubin 0.7 H AST 433 H ALT 197 H Alkaline Phosphatase 135 H Lipase 13447.0 H Discharge - Discharge Clinical Impression: Acute gallstone pancreatitis Condition: Good Disposition: ADMITTED INPATIENT Admitting Provider: Tanner Rico Unit Admitted: Telemetry
--- NOTE | 2017-12-01 22:41 | RADIOLOGY REPORT (SQ) ---
EXAM DESCRIPTION: CT ABD/PELVIS WITH IV ORAL COMPLETED DATE/TIME: 12/01/2017 10:12 pm REASON FOR STUDY: epigastric abd pain vomiting COMPARISON: 02/19/2015 TECHNIQUE: CT scan of the abdomen and pelvis performed using helical scanning technique with dynamic intravenous contrast injection. No oral contrast. Images reviewed with lung, soft tissue, and bone windows. Reconstructed coronal and sagittal MPR images reviewed. Delayed images for evaluation of the urinary system also acquired. All images stored on PACS. All CT scanners at this facility use dose modulation, iterative reconstruction, and/or weight based d osing when appropriate to reduce radiation dose to as low as reasonably achievable (ALARA). [facility]: Dose Right [facility]: CareDose [facility]: Dose Right [facility]: Teradose 4D [facility]: Sviral CONTRAST TYPE AND DOSE: contrast/concentration: Isovue 370.00 mg/ml; Total Contrast Delivered: 100.0 ml; Total Saline Delivered: 42.0 ml RENAL FUNCTION: GFR > 60. RADIATION DOSE: CT Rad equipment meets quality standard of care and radiation dose reduction techniq ues were employed. CTDIvol: 18.1 - 18.1 mGy. DLP: 2004 mGy-cm.. LIMITATIONS: None. FINDINGS: LOWER CHEST: Lower lobe subsegmental atelectasis and small pleural effusions bilaterally. LIVER: Normal size. No masses. Mild intrahepatic dilated ducts. SPLEEN: Normal size. No focal lesions. PANCREAS: No masses. No significant calcifications. Mild adjacent inflammation. No peripancreatic f luid collections. Pancreatic duct not dilated. GALLBLADDER: No identified stones by CT criteria. Mild wall thickening. ADRENAL GLANDS: No significant masses or asymmetry. RIGHT KIDNEY AND URETER: No solid masses. No significant calcifications. No hydronephrosis or hyd roureter. LEFT KIDNEY AND URETER: No solid masses. No significant calcifications. No hydronephrosis or hydr oureter. AORTA AND VESSELS: No aneurysm. No dissection. Renal arteries, SMA, celiac without stenosis. RETROPERITONEUM: No retroperitoneal adenopathy, hemorrhage or masses. BOWEL AND PERITONEAL CAVITY: No masses or inflammatory changes. No free fluid or peritoneal masses. APPENDIX: Normal. PELVIS: Prior hysterectomy. No free fluid. Normal bladder. ABDOMINAL WALL: No masses. No hernias. BONES: No acute findings. OTHER: No other significant finding. IMPRESSION: Mild gallbladder wall thickening, mildly dilated intrahepatic ducts, and adjacent inflam matory changes in the peripancreatic soft tissues, probable pancreatitis with adjacent reactive carter es. No calcified stones or common duct dilatation identified. Lower lobe subsegmental atelectasis and small pleural effusions bilaterally. TECHNICAL DOCUMENTATION: JOB ID: [id number] Quality ID # [id number]: Final reports with documentation of one or more dose reduction techniques (e.g., Au tomated exposure control, adjustment of the mA and/or kV according to patient size, use of iterative reconstruction technique) 2010 [employer]- All Rights Reserved
[2017-12-01] MEDS ORDERED: ACETAMINOPHEN 325 MG TABLET PO PRN (23:28)
[2017-12-01] MEDS ORDERED: PROMETHAZINE HCL INJ 25 MG/1 ML VIAL IV PRN (23:28)
--- NOTE | 2017-12-01 23:58 | PDOC CONSULTATION ---
Consultation Consult Date: 12/01/17 Consult reason:: abdominal pain History of Present Illness Admission Date/PCP: 12/01/17 23:21 MAGED MARIN MD History of Present Illness: 67 y/o female with diffuse abdominal pain which started this afternoon, neverr experienced before. She has a hx of previous cholelithiasis and galbladder sludge identified on US of the GB done on 10/17/17. Today, ER work-up done included a CT scan A/P which reveals and inflamed pancreas and adjacent gallballder. A lipase more of 38K with elevated LFT have been identified with a WBC of 14k. The patient is on Eliquis because of possibe DVD found in another hospital Past Medical History Cardiac Medical History: Reports: Hypertension Musculoskeltal Medical History: Reports: Arthritis Past Surgical History Past Surgical History: Reports: Hysterectomy, Orthopedic Surgery - foot surgery , shoulder repair, Tubal Ligation Social History Smoking Status: Never Smoker Family History Family History: Reviewed & Not Pertinent Parental Family History Reviewed: Yes Children Family History Reviewed: Yes Sibling(s) Family History Reviewed.: Yes Medication/Allergy Home Medications: Hydrochlorothiazide [Hydrochlorothiazide] 1 tab PO DAILY 10/17/17 Apixaban [Eliquis] 2.5 mg PO BID 12/01/17 Cetirizine HCl [24Hour Allergy] 10 mg PO DAILY 12/01/17 Prednisone See Protocol PO ASDIR PRN 12/01/17 Allergies/Adverse Reactions: aspirin [Aspirin] Adverse Reaction (Intermediate, Verified 11/20/17 21:49) Nausea Physical Exam Vital Signs: Temp Pulse Resp BP Pulse Ox 97.6 F 81 16 173/80 H 100 12/01/17 21:35 12/01/17 21:35 12/01/17 21:35 12/01/17 21:35 12/01/17 21:35 General appearance: PRESENT: no acute distress, cooperative Head exam: PRESENT: atraumatic Neck exam: PRESENT: full ROM Respiratory exam: PRESENT: chest wall tenderness, clear to auscultation dang, crackles Cardiovascular exam: PRESENT: RRR Pulses: PRESENT: +2 pedal pulses bilateral GI/Abdominal exam: PRESENT: distended, hypoactive bowel sounds, tenderness - diffuse Extremities exam: PRESENT: full ROM Results Impressions: Abdomen/Pelvis CT 12/01/17 00:00 IMPRESSION: Mild gallbladder wall thickening, mildly dilated intrahepatic ducts , and adjacent inflammatory changes in the peripancreatic soft tissues, probable pancreatitis with adjacent reactive changes. No calcified stones or common duct dilatation identified. Lower lobe subsegmental atelectasis and small pleural effusions bilaterally. Assessment & Plan - Diagnosis (1) Acute gallstone pancreatitis Is this a current diagnosis for this admission?: Yes - Plan Summary Plan Summary: A/ Abdominal pain, moderately severe Acute gallstone pancreatitis as per CT scan findings in patient with hx of cholelithiasis identified on US of 10/29/17 Elevated lipase 38K Mild elevation of LFT's Leukocytosis P/ Agree with admission by Hospitalist Service NPO, strict IVF No antibiotic needed by the General Surgery view point as there are no infection Pain control with IV Dilaudid Plan to monitor LFT's and lipase daily Laparoscopic cholecystectomy to be done during this hospitalization once the symptoms adolfo and her chemistry normalizes
[2017-12-02] MEDS ORDERED: HYDRALAZINE HCL INJ/PF 20 MG/1 ML SDV IV PRN ×2 (00:02→13:47)
[2017-12-02] MEDS: HYDROMORPHONE HCL INJ/PF 2 MG/ML AMPULE IV PRN ×2 (02:20→21:11)
--- NOTE | 2017-12-02 03:23 | PDOC H&P ---
History of Present Illness Admission Date/PCP: 12/01/17 23:21 MAGED MARIN MD Patient complains of: Persistent nausea vomiting and epigastric pain since 2 PM. History of Present Illness: KAYE KILPATRICK is a 67 year old female with history of rheumatoid arthritis ( on prednisone), DVT (on Eliquis) and HCV (treated with Harvoni) was admitted with above-mentioned complaints. The patient described her pain as burning sensation especially after she vomited and it was localized to the epigastric area. It was constant and very severe which prompted her to come to the hospital. It was relieved by 1 mg IV Dilaudid x1 given in the ED. She also had multiple episodes of vomiting with vomitus of food consistency, nonbloody. She denied any diarrhea or constipation or any hematuchezia or melena. She also denied any fever or chills but complained of some shortness of breath, no chest pain. She denied any urinary symptoms. She said that she was diaphoretic last night. She did not have any focal weakness but she has an unsteady gait and walks with a walker. In the ED, her temperature was 98.7, heart rate 106, respiratory rate 20, blood pressure 196/98 with oxygen saturation of 97% on room air. Her WBC was 14.2 and her hemoglobin was 12.9. [place] lipase [place] 17766 with elevated transaminase, total bili 0.7. CAT scan was done which showed probably acute pancreatitis with adjacent changes, CBD was not dilated. She received 1 L of normal saline and was started on normal saline at 150 mL/h. Past Medical History Cardiac Medical History: Reports: DVT, Hypertension GI Medical History: Reports: Hepatitis - HCV treated. Musculoskeltal Medical History: Reports: Arthritis - rheumatoid arthritis. Infectious Medical History: Reports: Hepatitis C Past Surgical History Past Surgical History: Reports: Hysterectomy, Orthopedic Surgery - foot surgery , shoulder repair, Tubal Ligation, Other Social History Smoking Status: Never Smoker Cigarettes Packs Per Day: 0 - About a pack a day for more than 20 years she quit about 10 years ago. Cigars Per Day: 0 - Used to drink heavily over the weekend for more than 10 years. Frequency of Alcohol Use: None Family History Parental Family History Reviewed: Yes - Father: Heart disease and diabetes, mother: Heart disease and diabetes. Children Family History Reviewed: No Sibling(s) Family History Reviewed.: Yes Medication/Allergy Home Medications: Hydrochlorothiazide [Hydrochlorothiazide] 1 tab PO DAILY 10/17/17 Apixaban [Eliquis] 2.5 mg PO BID 12/01/17 Cetirizine HCl [24Hour Allergy] 10 mg PO DAILY 12/01/17 Prednisone See Protocol PO ASDIR PRN 12/01/17 Allergies/Adverse Reactions: aspirin [Aspirin] Adverse Reaction (Intermediate, Verified 11/20/17 21:49) Nausea Review of Systems Constitutional: PRESENT: as per HPI Eyes: PRESENT: as per HPI Ears: PRESENT: as per HPI Nose, Mouth, and Throat: PRESENT: as per HPI Breasts: PRESENT: as per HPI Cardiovascular: PRESENT: as per HPI Respiratory: PRESENT: as per HPI Gastrointestinal: PRESENT: as per HPI Genitourinary: PRESENT: as per HPI Musculoskeletal: PRESENT: as per HPI Integumentary: PRESENT: as per HPI Neurological: PRESENT: as per HPI Psychiatric: PRESENT: as per HPI Endocrine: PRESENT: as per HPI Hematologic/Lymphatic: PRESENT: as per HPI Allergic/Immunologic: PRESENT: as per HPI - Pertinent positives and negatives as per HPI. Physical Exam Vital Signs: Temp Pulse Resp BP Pulse Ox 97.6 F 81 16 173/80 H 100 12/01/17 21:35 12/01/17 21:35 12/01/17 21:35 12/01/17 21:35 12/01/17 21:35 General appearance: PRESENT: no acute distress, well-developed, well-nourished Head exam: PRESENT: atraumatic, normocephalic Eye exam: PRESENT: conjunctiva pink, PERRLA. ABSENT: scleral icterus Mouth exam: PRESENT: moist, tongue midline Neck exam: PRESENT: carotid bruit, full ROM Respiratory exam: PRESENT: clear to auscultation dang. ABSENT: rales, rhonchi, wheezes Cardiovascular exam: PRESENT: diastolic murmur, tachycardia - S1 S2 normal. Pulses: PRESENT: normal dorsalis pedis pul GI/Abdominal exam: PRESENT: normal bowel sounds, soft, tenderness - epigastric.. ABSENT: distended, guarding, mass, organolmegaly, rebound Rectal exam: PRESENT: deferred Extremities exam: PRESENT: full ROM. ABSENT: pedal edema Neurological exam: PRESENT: alert, awake, oriented to person, oriented to place , oriented to time, oriented to situation, motor sensory deficit - numbness bottom of left foot. Psychiatric exam: PRESENT: appropriate affect, normal mood Skin exam: PRESENT: dry, intact, warm. ABSENT: rash Results Laboratory Results: CBC: WBC 14.2, hemoglobin 12.9, hematocrit 40.9, MCV 86, RDW 18.7, platelets 217. CMP: Sodium 142, potassium 4.6, chloride 105, bicarb 27, anion gap 10, BUN 15, creatinine 0.7, glucose 146, calcium 9.3. Total bili 0.7, AST 433, ALT 197, alk phos 135, lipase 90637. Impressions: Abdomen/Pelvis CT 12/01/17 00:00 IMPRESSION: Mild gallbladder wall thickening, mildly dilated intrahepatic ducts , and adjacent inflammatory changes in the peripancreatic soft tissues, probable pancreatitis with adjacent reactive changes. No calcified stones or common duct dilatation identified. Lower lobe subsegmental atelectasis and small pleural effusions bilaterally. Assessment & Plan - Diagnosis (1) Acute gallstone pancreatitis Plan: Most likely. The patient denies any alcohol use and she is not on any medications that can cause acute pancreatitis. Her abdominal CAT scan was reviewed. We will check triglyceride and serial lipase in addition to abdominal ultrasound. We will continue NPO, supportive care with aggressive hydration in addition to antiemetics and pain management as needed. Surgery was consulted by the ED physician who advised to continue conservative management for now. Surgical consult appreciated. (2) Transaminitis Is this a current diagnosis for this admission?: Yes Plan: She has history of hepatitis C which was treated with Harvoni per patient. She denies any alcohol use. We will follow-up abdominal ultrasound and repeat CMP in a.m. (3) SIRS (systemic inflammatory response syndrome) Is this a current diagnosis for this admission?: Yes Plan: Given leukocytosis and tachycardia in the setting of acute pancreatitis. Management as mentioned in #1. (4) Rheumatoid arthritis Is this a current diagnosis for this admission?: No Plan: She is already on prednisone. She said that she may be started on a biologic eventually. (6) Essential hypertension Is this a current diagnosis for this admission?: Yes Plan: IV hydralazine as needed and will monitor. (8) DVT (deep venous thrombosis) Is this a current diagnosis for this admission?: No Plan: History of DVT/questionable PE, on Eliquis. Will switch to therapeutic Lovenox while hospitalized.
[2017-12-02 05:05] LABS: ABSOLUTE EOSINOPHILS # (AUTO) 0.1 10^3/uL (0.0-0.6); ABSOLUTE LYMPHOCYTES (AUTO) 1.7 10^3/uL (0.5-4.7); ABSOLUTE MONOCYTES (AUTO) 0.3 10^3/uL (0.1-1.4); ABSOLUTE NEUT (AUTO) 7.7 10^3/uL (1.7-8.2); BASOPHILS % (AUTO) 0.3 % (0-2); EOSINOPHILS % (AUTO) 0.5 % (0-6); HEMATOCRIT 38.2 % (36.0-47.0); HEMOGLOBIN 12.2 g/dL (12.0-15.5); LYMPHOCYTES % (AUTO) 17.2 % (13-45); MEAN CORPUSCULAR HEMOGLOBIN 27.1 pg (27.0-33.4); MEAN CORPUSCULAR HGB CONC 31.9 g/dL (32.0-36.0); MEAN CORPUSCULAR VOLUME 85 fl (80-97); MONOCYTES % (AUTO) 2.7 % (3-13); PLATELET COUNT 224 10^3/uL (150-450); RED BLOOD COUNT 4.48 10^6/uL (3.72-5.28); RED CELL DISTRIBUTION WIDTH 18.5 % (11.5-14.0); SEGMENTED NEUTROPHILS % (AUTO) 79.3 % (42-78); TOTAL CELLS COUNTED % (AUTO) 100 %; WHITE BLOOD COUNT 9.7 10^3/uL (4.0-10.5)
[2017-12-02 05:23] LABS: ALANINE AMINOTRANSFERASE 174 U/L (9-52); ALBUMIN 3.4 g/dL (3.5-5.0); ALKALINE PHOSPHATASE 115 U/L (38-126); ANION GAP 9 (5-19); ASPARTATE AMINO TRANSFERASE 187 U/L (14-36); BILIRUBIN,DIRECT 0.1 mg/dL (0.0-0.4); BILIRUBIN,TOTAL 0.3 mg/dL (0.2-1.3); BLOOD UREA NITROGEN 10 mg/dL (7-20); CARBON DIOXIDE 28 mmol/L (22-30); CHLORIDE 104 mmol/L (98-107); CHOLESTEROL 233.92 mg/dL (0-200); GLUCOSE 93 mg/dL (75-110); POTASSIUM 3.8 mmol/L (3.6-5.0); SODIUM 141.2 mmol/L (137-145); TOTAL PROTEIN 6.3 g/dL (6.3-8.2); TRIGLYCERIDES 61 mg/dL (<150)
[2017-12-02 05:34] LABS: DIRECT LDL 126 mg/dL (<100)
[2017-12-02] MEDS ORDERED: HEPARIN SOD (PORCINE) 5,000 UNIT/ML 1 ML SYRINGE SUBCUT SCH (06:00)
[2017-12-02] MEDS: ENOXAPARIN SODIUM INJ 100 MG/1 ML DISP.SYRIN SUBCUT SCH ×2 (09:33→21:11)
[2017-12-02 10:01] LABS: INTERNATIONAL RATION (INR) 0.92
--- NOTE | 2017-12-02 13:08 | RADIOLOGY REPORT (SQ) ---
EXAM DESCRIPTION: U/S ABDOMEN COMPLETE W/O DOP COMPLETED DATE/TIME: 12/02/2017 12:56 pm REASON FOR STUDY: Acute pancreatitis COMPARISON: CT abdomen and pelvis 12/01/2017 Abdominal ultrasound 10/17/2017 TECHNIQUE: Dynamic and static grayscale images acquired of the abdomen and recorded on PACS. Additio nal selected color Doppler and spectral images recorded. LIMITATIONS: Midline bowel gas FINDINGS: PANCREAS: Midline pancreas unremarkable. LIVER: No masses. Echotexture normal. LIVER VASCULATURE: Normal directional flow of the main portal vein and hepatic veins. GALLBLADDER: Gallbladder is distended. No wall thickening or pericholecystic fluid. Tiny focus of a denomyosis anterior gallbladder wall. Minimal dependent sludge. ULTRASOUND-DETECTED PEREZ'S SIGN: Negative. INTRAHEPATIC DUCTS AND COMMON DUCT: CBD and intrahepatic ducts normal caliber. No filling defects. INFERIOR VENA CAVA: Normal flow. AORTA: No aneurysm. RIGHT KIDNEY: Normal size. Normal echogenicity. No solid or suspicious masses. No hydronephros is. No calcifications. LEFT KIDNEY: Normal size. Normal echogenicity. No solid or suspicious masses. No hydronephrosi s. No calcifications. SPLEEN: Normal size. No solid masses. PERITONEAL AND PLEURAL SPACES: No ascites or effusions. OTHER: No other significant finding. IMPRESSION: Midline pancreas is unremarkable by ultrasound. No definite gallbladder wall thickening or pericholecystic fluid. Tiny focus of adenomyosis in the a nterior gallbladder wall. Small amount of dependent sludge in the gallbladder. No intra or extrahepatic biliary ductal dilatation TECHNICAL DOCUMENTATION: JOB ID: [id number] [employer]- All Rights Reserved Reading location - IP/workstation name: [email or web address]
--- NOTE | 2017-12-02 13:45 | PDOC PROGRESS REPORT ---
Subjective Progress Note for:: 12/02/17 Subjective:: The patient is currently admitted with gallstone pancreatitis. She is actually feeling better, however, she is not eaten anything yet. She did have a few ice chips overnight. She is passing flatus but has not had any bowel movements. Reason For Visit: ACUTE PANCREATITIS Physical Exam Vital Signs: Temp Pulse Resp BP Pulse Ox 97.7 F 89 12 141/72 H 98 12/02/17 08:07 12/02/17 08:07 12/02/17 08:07 12/02/17 08:07 12/02/17 08:07 Intake & Output 12/01/17 12/02/17 12/03/17 06:59 06:59 06:59 Intake Total 150 Balance 150 Weight 110.1 kg 110.1 kg Additional comments: The patient appears to be her stated age. She is currently in no distress. Her cognition is normal and she is answering questions appropriately. Her facial appearance is unremarkable. Her lungs are clear to auscultation bilaterally. Her cardiac exam is regular without murmurs, gallops or rubs. The abdomen is however tender in the mid epigastric region with moderate to deep palpation. She does not have guarding or rebound noted. There are no hernias or masses present. The lower extremities are warm without edema. The skin is warm, dry and intact without lesions or rashes. Results Laboratory Results: 12/02/17 03:56 12/02/17 03:56 12/02/17 12/02/17 03:56 03:56 WBC 9.7 RBC 4.48 Hgb 12.2 Hct 38.2 MCV 85 MCH 27.1 MCHC 31.9 L RDW 18.5 H Plt Count 224 Seg Neutrophils % 79.3 H Lymphocytes % 17.2 Monocytes % 2.7 L Eosinophils % 0.5 Basophils % 0.3 Absolute Neutrophils 7.7 Absolute Lymphocytes 1.7 Absolute Monocytes 0.3 Absolute Eosinophils 0.1 Absolute Basophils 0.0 Sodium 141.2 Potassium 3.8 Chloride 104 Carbon Dioxide 28 Anion Gap 9 BUN 10 Creatinine 0.56 Est GFR ( Amer) > 60 Est GFR (Non-Af Amer) > 60 Glucose 93 Calcium 9.0 Total Bilirubin 0.3 AST 187 H ALT 174 H Alkaline Phosphatase 115 Total Protein 6.3 Albumin 3.4 L Triglycerides 61 Cholesterol 233.92 H LDL Cholesterol Direct 126 H VLDL Cholesterol 12.0 HDL Cholesterol 76 Lipase 38116.0 H Impressions: Abdomen/Pelvis CT 12/01/17 00:00 IMPRESSION: Mild gallbladder wall thickening, mildly dilated intrahepatic ducts , and adjacent inflammatory changes in the peripancreatic soft tissues, probable pancreatitis with adjacent reactive changes. No calcified stones or common duct dilatation identified. Lower lobe subsegmental atelectasis and small pleural effusions bilaterally. Abdomen Ultrasound 12/02/17 00:00 IMPRESSION: Midline pancreas is unremarkable by ultrasound. No definite gallbladder wall thickening or pericholecystic fluid. Tiny focus of adenomyosis in the anterior gallbladder wall. Small amount of dependent sludge in the gallbladder. No intra or extrahepatic biliary ductal dilatation Assessment & Plan - Diagnosis (1) Acute gallstone pancreatitis Is this a current diagnosis for this admission?: Yes Plan: The plan will be for cholecystectomy during this hospitalization. Surgery is following. (2) DVT (deep venous thrombosis) Is this a current diagnosis for this admission?: Yes Plan: Patient was on Eliquis. She is now on Lovenox to assist in preparation for surgery. (3) Essential hypertension Is this a current diagnosis for this admission?: Yes Plan: We will start her oral medications when able. For now the patient is on IV hydralazine which I will increase secondary to persistently elevated blood pressures. (4) Rheumatoid arthritis Is this a current diagnosis for this admission?: Yes Plan: She was on prednisone when she came in. She is currently not receiving anything but she appears to be okay. If surgery is required she may require stress doses of hydrocortisone. (5) SIRS (systemic inflammatory response syndrome) Is this a current diagnosis for this admission?: Yes (6) Transaminitis Is this a current diagnosis for this admission?: Yes Plan: Due to #1 - Time Time Spent with patient: 15-24 minutes - Inpatient Certification Medical Necessity: Need for Pain Control, Need for Surgery, Risk of Complication if Not Cared For in Hospital
[2017-12-02 17:04] LABS: APPEARANCE,URINE CLEAR; BILIRUBIN,URINE NEGATIVE (NEGATIVE); COLOR,URINE YELLOW; GLUCOSE, URINE NEGATIVE (NEGATIVE); KETONES,URINE NEGATIVE (NEGATIVE); LEUKOCYTE ESTERASE,URINE NEGATIVE (NEGATIVE); NITRITE,URINE NEGATIVE (NEGATIVE); PROTEIN,URINE NEGATIVE (NEGATIVE)
--- NOTE | 2017-12-02 18:53 | PROGRESS NOTE E ---
Progress Note NAME: KAYE KILPATRICK : 1950 AGE: 67Y DATE: 12/02/2017 ROOM: 426 SUBJECTIVE: The patient is tolerating clear liquids. States her pain is diminished. OBJECTIVE: ABDOMEN: Abdominal exam reveals mild distention. No peritoneal signs. Minimal guarding. The remainder of the examination is fairly unremarkable. ASSESSMENT: GALLSTONE PANCREATITIS IN A 67-YEAR-OLD WHITE FEMALE WITH A HISTORY OF RHEUMATOID ARTHRITIS ON STEROIDS. RECOMMENDATION: 1. The patient is clinically improved but not resolved pancreatitis based on symptoms and improving, but not normalized lipase level. 2. The patient is not interested in undergoing surgery. I tried to explain to the patient that she would be at increased risk for recurrent pancreatitis, choledocholithiasis and complications thereof if surgery was postponed. I am not sure if she understands the implications of tonight's discussion. 3. I discussed the patient's management with primary care team. I suggested we keep the patient on clear liquids for now and continue to follow her laboratory profile tomorrow. DICTATING PHYSICIAN: KATIE DUQUE M.D. [id number] PHY#: [id number] [id number] JOB#: [id number] ACCT: [id number] cc: >
[2017-12-03 05:39] LABS: INTERNATIONAL RATION (INR) 0.95; PROTHROMBIN TIME 13.3 SEC (11.4-15.4)
[2017-12-03 06:01] LABS: ALANINE AMINOTRANSFERASE 104 U/L (9-52); ALBUMIN 3.2 g/dL (3.5-5.0); ALKALINE PHOSPHATASE 92 U/L (38-126); ANION GAP 8 (5-19); ASPARTATE AMINO TRANSFERASE 59 U/L (14-36); BILIRUBIN,DIRECT 0.3 mg/dL (0.0-0.4); BILIRUBIN,TOTAL 0.6 mg/dL (0.2-1.3); BLOOD UREA NITROGEN 6 mg/dL (7-20); CALCIUM 8.6 mg/dL (8.4-10.2); CARBON DIOXIDE 29 mmol/L (22-30); CHLORIDE 101 mmol/L (98-107); GLUCOSE 93 mg/dL (75-110); LIPASE 264.4 U/L (23-300); POTASSIUM 3.7 mmol/L (3.6-5.0); TOTAL PROTEIN 6.2 g/dL (6.3-8.2)
[2017-12-03] MEDS: ENOXAPARIN SODIUM INJ 100 MG/1 ML DISP.SYRIN SUBCUT SCH ×2 (09:54→21:23)
[2017-12-03] MEDS: HYDROMORPHONE HCL INJ/PF 2 MG/ML AMPULE IV PRN (09:54)
--- NOTE | 2017-12-03 15:21 | PDOC PROGRESS REPORT ---
Subjective Progress Note for:: 12/03/17 Reason For Visit: ACUTE PANCREATITIS Patient states she feels better, tolerating it diet. Physical Exam Vital Signs: Temp Pulse Resp BP Pulse Ox 99.1 F 96 18 132/67 H 98 12/03/17 12:00 12/03/17 14:00 12/03/17 12:00 12/03/17 12:00 12/03/17 12:00 Intake & Output 12/02/17 12/03/17 12/04/17 06:59 06:59 06:59 Intake Total 150 590 Balance 150 590 Weight 110.1 kg 115.6 kg General appearance: PRESENT: no acute distress GI/Abdominal exam: PRESENT: other - Abdomen is much softer compared to yesterday. There are no peritoneal signs. Mild guarding in the epigastric region Results Laboratory Results: 12/02/17 03:56 12/03/17 05:18 12/02/17 12/03/17 16:37 05:18 Sodium 138.0 Potassium 3.7 Chloride 101 Carbon Dioxide 29 Anion Gap 8 BUN 6 L Creatinine 0.64 Est GFR ( Amer) > 60 Est GFR (Non-Af Amer) > 60 Glucose 93 Calcium 8.6 Total Bilirubin 0.6 AST 59 H ALT 104 H Alkaline Phosphatase 92 Total Protein 6.2 L Albumin 3.2 L Lipase 264.4 Urine Color YELLOW Urine Appearance CLEAR Urine pH 6.0 Ur Specific [place] 1.010 Urine Protein NEGATIVE Urine Glucose (UA) NEGATIVE Urine Ketones NEGATIVE Urine Blood NEGATIVE Urine Nitrite NEGATIVE Ur Leukocyte Esterase NEGATIVE Urine WBC (Auto) 1 Urine RBC (Auto) 1 Impressions: Abdomen/Pelvis CT 12/01/17 00:00 IMPRESSION: Mild gallbladder wall thickening, mildly dilated intrahepatic ducts , and adjacent inflammatory changes in the peripancreatic soft tissues, probable pancreatitis with adjacent reactive changes. No calcified stones or common duct dilatation identified. Lower lobe subsegmental atelectasis and small pleural effusions bilaterally. Abdomen Ultrasound 12/02/17 00:00 IMPRESSION: Midline pancreas is unremarkable by ultrasound. No definite gallbladder wall thickening or pericholecystic fluid. Tiny focus of adenomyosis in the anterior gallbladder wall. Small amount of dependent sludge in the gallbladder. No intra or extrahepatic biliary ductal dilatation Assessment & Plan - Diagnosis (1) Acute gallstone pancreatitis Is this a current diagnosis for this admission?: Yes Plan: Clinically improved, and serologies improved as well; gallstone pancreatitis resolving graft recommendations 1. Again explained to the patient that the management going forward historically has been interval laparoscopic cholecystectomy which I recommended yesterday and again today. Patient is very adamant about not undergoing surgery. I explained that she may be putting her health in jeopardy, further risk of gastrointestinal complications. 2. We will sign off at this point; if she becomes interested in undergoing interval laparoscopic cholecystectomy we can be reconsulted. I spoke with the hospitalist Dr. Belle about the patient today
--- NOTE | 2017-12-03 16:08 | PDOC PROGRESS REPORT ---
Subjective Progress Note for:: 12/03/17 Subjective:: The patient is currently admitted with gallstone pancreatitis. She states that she is feeling okay. She did not have any sweats or chills last night. I did inform her that she had a fairly high fever last night at 101.8. She has had 3 loose bowel movements in the last 24 hours. Her only complaint this morning is headache. Reason For Visit: ACUTE PANCREATITIS Physical Exam Vital Signs: Temp Pulse Resp BP Pulse Ox 99.1 F 96 18 132/67 H 98 12/03/17 12:00 12/03/17 14:00 12/03/17 12:00 12/03/17 12:00 12/03/17 12:00 Intake & Output 12/02/17 12/03/17 12/04/17 06:59 06:59 06:59 Intake Total 150 590 Balance 150 590 Weight 110.1 kg 115.6 kg Additional comments: The patient does not appear to be toxic or in any acute distress. Her mentation and cognition appear to be normal. Her facial appearance is unremarkable. Her lungs demonstrate clear breath sounds bilaterally both anteriorly and posteriorly. Her cardiac exam is regular without murmurs, gallops or rubs. The abdomen is soft and flat. Bowel sounds are present. She does not have guarding or rebound noted and there are no hernias or masses present. The lower extremities are unremarkable. Skin is warm, clean, dry and intact. Results Laboratory Results: 12/02/17 03:56 12/03/17 05:18 12/02/17 12/03/17 16:37 05:18 Sodium 138.0 Potassium 3.7 Chloride 101 Carbon Dioxide 29 Anion Gap 8 BUN 6 L Creatinine 0.64 Est GFR ( Amer) > 60 Est GFR (Non-Af Amer) > 60 Glucose 93 Calcium 8.6 Total Bilirubin 0.6 AST 59 H ALT 104 H Alkaline Phosphatase 92 Total Protein 6.2 L Albumin 3.2 L Lipase 264.4 Urine Color YELLOW Urine Appearance CLEAR Urine pH 6.0 Ur Specific [place] 1.010 Urine Protein NEGATIVE Urine Glucose (UA) NEGATIVE Urine Ketones NEGATIVE Urine Blood NEGATIVE Urine Nitrite NEGATIVE Ur Leukocyte Esterase NEGATIVE Urine WBC (Auto) 1 Urine RBC (Auto) 1 Impressions: Abdomen/Pelvis CT 12/01/17 00:00 IMPRESSION: Mild gallbladder wall thickening, mildly dilated intrahepatic ducts , and adjacent inflammatory changes in the peripancreatic soft tissues, probable pancreatitis with adjacent reactive changes. No calcified stones or common duct dilatation identified. Lower lobe subsegmental atelectasis and small pleural effusions bilaterally. Abdomen Ultrasound 12/02/17 00:00 IMPRESSION: Midline pancreas is unremarkable by ultrasound. No definite gallbladder wall thickening or pericholecystic fluid. Tiny focus of adenomyosis in the anterior gallbladder wall. Small amount of dependent sludge in the gallbladder. No intra or extrahepatic biliary ductal dilatation Assessment & Plan - Diagnosis (1) Acute gallstone pancreatitis Is this a current diagnosis for this admission?: Yes Plan: The plan was going to be for cholecystectomy, however, the patient is adamantly refusing any surgery during this hospitalization. I told her that she may be placing herself at risk for infection and even from sepsis but again she refuses surgery. I will slowly try to advance her diet. (2) DVT (deep venous thrombosis) Is this a current diagnosis for this admission?: Yes Plan: Patient was on Eliquis. She is now on Lovenox but if she is not going to have surgery we may switch back to Eliquis - for now I will continue lovenox in light of high fever overnight. (3) Essential hypertension Is this a current diagnosis for this admission?: Yes Plan: We will start her oral medications when able. For now the patient is on IV hydralazine which I increased yesterday secondary to persistently elevated blood pressures. (4) Rheumatoid arthritis Is this a current diagnosis for this admission?: Yes Plan: She was on prednisone when she came in. She is currently not receiving anything but she appears to be okay. If surgery is required she may require stress doses of hydrocortisone. (5) SIRS (systemic inflammatory response syndrome) Is this a current diagnosis for this admission?: Yes (6) Transaminitis Is this a current diagnosis for this admission?: Yes Plan: Due to #1 - Time Time Spent with patient: 25-34 minutes - Inpatient Certification Medical Necessity: Need for IV Antibiotics, Risk of Complication if Not Cared For in Hospital
[2017-12-03] MEDS ORDERED: PIPERACILLIN/TAZOBACTAM 3.375 GM VIAL IV PRN (18:14)
[2017-12-03] MEDS ORDERED: PIPERACILLIN/TAZOBACTAM 3.375 GM VIAL IV ONE (18:38)
[2017-12-03] MEDS: PIPERACILLIN SODIUM/TAZOBACTAM 3.375 GM in NORMAL SALINE 100 ML IV SCH ×2 (18:55→23:23)
[2017-12-04 05:14] LABS: ABSOLUTE EOSINOPHILS # (AUTO) 0.1 10^3/uL (0.0-0.6); ABSOLUTE LYMPHOCYTES (AUTO) 1.8 10^3/uL (0.5-4.7); ABSOLUTE MONOCYTES (AUTO) 0.4 10^3/uL (0.1-1.4); ABSOLUTE NEUT (AUTO) 4.2 10^3/uL (1.7-8.2); BASOPHILS % (AUTO) 0.7 % (0-2); EOSINOPHILS % (AUTO) 1.1 % (0-6); HEMOGLOBIN 12.6 g/dL (12.0-15.5); LYMPHOCYTES % (AUTO) 27.9 % (13-45); MEAN CORPUSCULAR HEMOGLOBIN 27.6 pg (27.0-33.4); MEAN CORPUSCULAR HGB CONC 32.3 g/dL (32.0-36.0); MEAN CORPUSCULAR VOLUME 86 fl (80-97); MONOCYTES % (AUTO) 5.6 % (3-13); PLATELET COUNT 231 10^3/uL (150-450); RED BLOOD COUNT 4.56 10^6/uL (3.72-5.28); RED CELL DISTRIBUTION WIDTH 18.7 % (11.5-14.0); SEGMENTED NEUTROPHILS % (AUTO) 64.7 % (42-78); TOTAL CELLS COUNTED % (AUTO) 100 %; WHITE BLOOD COUNT 6.5 10^3/uL (4.0-10.5)
[2017-12-04 05:50] LABS: ALANINE AMINOTRANSFERASE 80 U/L (9-52); ALBUMIN 3.6 g/dL (3.5-5.0); ALKALINE PHOSPHATASE 102 U/L (38-126); ANION GAP 14 (5-19); ASPARTATE AMINO TRANSFERASE 38 U/L (14-36); BILIRUBIN,DIRECT 0.6 mg/dL (0.0-0.4); BLOOD UREA NITROGEN 6 mg/dL (7-20); CALCIUM 8.9 mg/dL (8.4-10.2); CARBON DIOXIDE 30 mmol/L (22-30); CHLORIDE 97 mmol/L (98-107); GLUCOSE 112 mg/dL (75-110); LIPASE 115.5 U/L (23-300); POTASSIUM 3.9 mmol/L (3.6-5.0); SODIUM 140.6 mmol/L (137-145); TOTAL PROTEIN 6.7 g/dL (6.3-8.2)
[2017-12-04] MEDS: PIPERACILLIN SODIUM/TAZOBACTAM 3.375 GM in NORMAL SALINE 100 ML IV SCH ×4 (05:51→23:22)
[2017-12-04] MEDS: ENOXAPARIN SODIUM INJ 100 MG/1 ML DISP.SYRIN SUBCUT SCH (09:37)
--- NOTE | 2017-12-04 09:55 | PDOC PROGRESS REPORT ---
Subjective Progress Note for:: 12/04/17 Reason For Visit: ACUTE PANCREATITIS She now desires to undergo laparoscopic cholecystectomy. She has no pain. She is requiring no pain medicine. She took clear liquids this morning. Physical Exam Vital Signs: Temp Pulse Resp BP Pulse Ox 99.1 F 96 16 141/76 H 97 12/04/17 07:10 12/04/17 07:10 12/04/17 07:10 12/04/17 07:10 12/04/17 07:10 Intake & Output 12/03/17 12/04/17 12/05/17 06:59 06:59 06:59 Intake Total 590 2700 Output Total 1960 Balance 590 740 Weight 115.6 kg General appearance: PRESENT: no acute distress GI/Abdominal exam: PRESENT: other - Abdomen completely benign Results Laboratory Results: 12/04/17 04:16 12/04/17 04:16 12/04/17 12/04/17 04:16 04:16 WBC 6.5 RBC 4.56 Hgb 12.6 Hct 39.0 MCV 86 MCH 27.6 MCHC 32.3 RDW 18.7 H Plt Count 231 Seg Neutrophils % 64.7 Lymphocytes % 27.9 Monocytes % 5.6 Eosinophils % 1.1 Basophils % 0.7 Absolute Neutrophils 4.2 Absolute Lymphocytes 1.8 Absolute Monocytes 0.4 Absolute Eosinophils 0.1 Absolute Basophils 0.0 Sodium 140.6 Potassium 3.9 Chloride 97 L Carbon Dioxide 30 Anion Gap 14 BUN 6 L Creatinine 0.73 Est GFR ( Amer) > 60 Est GFR (Non-Af Amer) > 60 Glucose 112 H Calcium 8.9 Total Bilirubin 1.0 AST 38 H ALT 80 H Alkaline Phosphatase 102 Total Protein 6.7 Albumin 3.6 Lipase 115.5 Impressions: Abdomen/Pelvis CT 12/01/17 00:00 IMPRESSION: Mild gallbladder wall thickening, mildly dilated intrahepatic ducts , and adjacent inflammatory changes in the peripancreatic soft tissues, probable pancreatitis with adjacent reactive changes. No calcified stones or common duct dilatation identified. Lower lobe subsegmental atelectasis and small pleural effusions bilaterally. Abdomen Ultrasound 12/02/17 00:00 IMPRESSION: Midline pancreas is unremarkable by ultrasound. No definite gallbladder wall thickening or pericholecystic fluid. Tiny focus of adenomyosis in the anterior gallbladder wall. Small amount of dependent sludge in the gallbladder. No intra or extrahepatic biliary ductal dilatation Assessment & Plan - Diagnosis (1) Acute gallstone pancreatitis Plan: Recent hospitalized for 3 days for gallstone pancreatitis patient has clinically normalized as have her liver function studies and lipase. Appropriate candidate to undergo interval laparoscopic cholecystectomy, with intraoperative cholangiography. Discussion and plan: 1. I reviewed the pathoanatomy of gallbladder disease again with the patient and her daughter, and patricia pictures on the board. I suspect the patient has passed common duct stones, developed pancreatitis and now that has resolved. I have recommended laparoscopic, possible open cholecystectomy with intraoperative cholangiography. Next of the operation as well as risks benefits and alternatives including bleeding, infection, bile duct injury bile leak and need for additional surgery all discussed with the patient and her daughter. I explained to the patient and her daughter that if her cholangiogram is abnormal, she may require postoperative ERCP for sphincterotomy , and stone extraction which would need to be done early next week. 2. We will check a chest x-ray and EKG; patient has no history of stroke or myocardial infarction by her report. I have spoken with Dr. Serrano, anesthesiologist about about the patient. Plan the operation later today.
--- NOTE | 2017-12-04 10:43 | RADIOLOGY REPORT (SQ) ---
EXAM DESCRIPTION: CHEST PA/LAT COMPLETED DATE/TIME: 12/04/2017 10:35 am REASON FOR STUDY: surgical clearance COMPARISON: 10/19/2017 EXAM PARAMETERS: NUMBER OF VIEWS: two views TECHNIQUE: Digital Frontal and Lateral radiographic views of the chest acquired. RADIATION DOSE: NA LIMITATIONS: none FINDINGS: LUNGS AND PLEURA: Stable linear opacities compatible with subsegmental atelectasis or scar ring. No new airspace disease, masses or pneumothorax. No pleural effusion. MEDIASTINUM AND HILAR STRUCTURES: No masses or contour abnormalities. HEART AND VASCULAR STRUCTURES: Heart stable in size. No evidence for failure. BONES: No acute findings. HARDWARE: None in the chest. OTHER: No other significant finding. IMPRESSION: NO ACUTE CARDIOPULMONARY PROCESS. CHRONIC CHANGES ABOVE. TECHNICAL DOCUMENTATION: JOB ID: [id number] [employer]- All Rights Reserved Reading location - IP/workstation name: [email or web address]
[2017-12-04] MEDS ORDERED: DEXTROSE 5%-LACTATED RINGERS 1,000 ML IV PRN (12:00)
[2017-12-04] MEDS: BUPIVACAINE HCL 0.25 % INJ/PF (2.5 MG/1 ML) 30 ML VIAL ONE ×2 (13:43→14:16)
[2017-12-04] MEDS ORDERED: EPHEDRINE SULFATE INJ 50 MG/1 ML AMPULE ONE (13:49)
[2017-12-04] MEDS ORDERED: FENTANYL CITRATE INJ/PF 250 MCG/5 ML AMPULE ONE (13:49)
[2017-12-04] MEDS ORDERED: ACETAMINOPHEN 100 ML IV ONE (13:49)
[2017-12-04] MEDS ORDERED: PROPOFOL INJ 200 MG/20 ML VIAL IV ONE (13:49)
[2017-12-04] MEDS ORDERED: MIDAZOLAM 2 MG/2 ML INJ ONE (13:49)
[2017-12-04] MEDS ORDERED: DEXMEDETOMIDINE INJ 80 MCG/20 ML VIAL IV ONE (13:50)
[2017-12-04] MEDS ORDERED: FENTANYL CITRATE INJ/PF 100 MCG/2 ML AMPUL IV PRN ×3 (14:41)
[2017-12-04] MEDS ORDERED: PROMETHAZINE HCL INJ 25 MG/1 ML VIAL IV PRN ×2 (14:41)
[2017-12-04] MEDS ORDERED: DIPHENHYDRAMINE HCL 50 MG/ML VIAL IV PRN (14:41)
[2017-12-04] MEDS ORDERED: MEPERIDINE HCL/PF INJ 25 MG/1 ML DISP.SYRIN IV PRN (14:41)
[2017-12-04] MEDS ORDERED: ONDANSETRON HCL INJ/PF 4 MG/2 ML SDV IV PRN (14:41)
[2017-12-04] MEDS ORDERED: GLUCAGON,HUMAN RECOMB 1 MG INJ ONE (15:02)
--- NOTE | 2017-12-04 15:34 | PDOC PROGRESS REPORT ---
Subjective Progress Note for:: 12/04/17 Subjective:: The patient is currently admitted with gallstone pancreatitis. Continues to have fevers, but, her temperature curve overall is coming down. She is passing flatus and having bowel movements. Overnight, she changed her mind and now wants to undergo surgery. Reason For Visit: ACUTE PANCREATITIS Physical Exam Vital Signs: Temp Pulse Resp BP Pulse Ox 99.5 F 91 17 144/62 H 97 12/04/17 12:11 12/04/17 12:11 12/04/17 12:11 12/04/17 12:11 12/04/17 12:11 Intake & Output 12/03/17 12/04/17 12/05/17 06:59 06:59 06:59 Intake Total 590 2700 725 Output Total 1960 1152 Balance 590 740 -427 Weight 115.6 kg Additional comments: The patient was in good spirits this morning. She did not appear to be septic. Her mentation was appropriate. Her facial appearance was unremarkable. Her lungs were noted to be clear to auscultation bilaterally. Her cardiac exam is regular without murmurs, gallops or rubs. The abdomen was soft and flat. She had minimal pain with palpation. She did not have guarding or rebound noted and there were no hernias or masses. The lower extremities are warm to touch without edema. The skin is warm, dry and intact. Results Laboratory Results: 12/04/17 04:16 12/04/17 04:16 12/04/17 12/04/17 04:16 04:16 WBC 6.5 RBC 4.56 Hgb 12.6 Hct 39.0 MCV 86 MCH 27.6 MCHC 32.3 RDW 18.7 H Plt Count 231 Seg Neutrophils % 64.7 Lymphocytes % 27.9 Monocytes % 5.6 Eosinophils % 1.1 Basophils % 0.7 Absolute Neutrophils 4.2 Absolute Lymphocytes 1.8 Absolute Monocytes 0.4 Absolute Eosinophils 0.1 Absolute Basophils 0.0 Sodium 140.6 Potassium 3.9 Chloride 97 L Carbon Dioxide 30 Anion Gap 14 BUN 6 L Creatinine 0.73 Est GFR ( Amer) > 60 Est GFR (Non-Af Amer) > 60 Glucose 112 H Calcium 8.9 Total Bilirubin 1.0 AST 38 H ALT 80 H Alkaline Phosphatase 102 Total Protein 6.7 Albumin 3.6 Lipase 115.5 Impressions: Abdomen/Pelvis CT 12/01/17 00:00 IMPRESSION: Mild gallbladder wall thickening, mildly dilated intrahepatic ducts , and adjacent inflammatory changes in the peripancreatic soft tissues, probable pancreatitis with adjacent reactive changes. No calcified stones or common duct dilatation identified. Lower lobe subsegmental atelectasis and small pleural effusions bilaterally. Abdomen Ultrasound 12/02/17 00:00 IMPRESSION: Midline pancreas is unremarkable by ultrasound. No definite gallbladder wall thickening or pericholecystic fluid. Tiny focus of adenomyosis in the anterior gallbladder wall. Small amount of dependent sludge in the gallbladder. No intra or extrahepatic biliary ductal dilatation Chest X-Ray 12/04/17 00:00 IMPRESSION: NO ACUTE CARDIOPULMONARY PROCESS. CHRONIC CHANGES ABOVE. Assessment & Plan - Diagnosis (1) Acute gallstone pancreatitis Is this a current diagnosis for this admission?: Yes Plan: For surgery today (2) DVT (deep venous thrombosis) Is this a current diagnosis for this admission?: Yes Plan: Continue Lovenox window (3) Essential hypertension Is this a current diagnosis for this admission?: Yes Plan: We will start her oral medications when able. Continue IV hydralazine for now (4) Rheumatoid arthritis Is this a current diagnosis for this admission?: Yes Plan: She was on prednisone when she came in. She is currently not receiving anything but she appears to be okay. She may require stress dose steroids postoperatively. (5) SIRS (systemic inflammatory response syndrome) Is this a current diagnosis for this admission?: Yes (6) Transaminitis Is this a current diagnosis for this admission?: Yes Plan: Due to #1 - Time Time Spent with patient: 15-24 minutes - Inpatient Certification Medical Necessity: Need for IV Antibiotics, Need for Surgery
--- NOTE | 2017-12-04 15:48 | Operative Report ---
Operative Report DATE OF SURGERY: 12/04/17 PREOPERATIVE DIAGNOSIS: 1. Gallstone pancreatitis. 2. Acute cholecystitis with cholelithiasis. 3. Intra-abdominal adhesions. 4. Steroid dependency POSTOPERATIVE DIAGNOSIS: Same OPERATION: 1. Laparoscopic cholecystectomy. 2. Intraoperative cholangiography. 3. Interpretation of intraoperative cholangiography. 4. Intraoperative lysis of adhesions SURGEON: KATIE DUQUE ANESTHESIA: GA TISSUE REMOVED OR ALTERED: 1 gallbladder with contents COMPLICATIONS: None ESTIMATED BLOOD LOSS: 10 cc INTRAOPERATIVE FINDINGS: See below PROCEDURE: The patient was seen in the preop holding area then taken to the main operating room where general anesthesia was induced. Arms were abducted, abdomen prepped and draped in sterile fashion with Betadine. Surgical plan and surgical timeout were conducted. Skin was anesthetized with quarter percent Marcaine for intended for port laparoscopic surgery. A supraumbilical vertical incision was made with a knife Veress needle inserted the peritoneal cavity pneumoperitoneum was established. The needle was removed, 5 mm ports inserted and a 5 mm flexible viewing scope was inserted. Under direct visualization 3 additional ports were placed one in the subxiphoid and 2 in the subcostal position. There were adhesions between the anterior abdominal wall and the omentum at the level of the umbilicus. We repositioned our camera and graspers and using the laparoscopic scissor with heat, we took down the adhesions between the omentum and the anterior abdominal wall adjacent to the supraumbilical port. Was no evidence of proximity to small intestine, therefore we felt that there was no evidence of visceral injury. The camera was repositioned to the supraumbilical position. The gallbladder was distended, and slightly green consistent with acute cholecystitis gallbladder was aspirated of approximately 100 cc of bile. Graspers were placed in the gallbladder fundus and infundibulum and the gallbladder was reflected up over the liver bed. We began dissecting out the gallbladder neck. Because of the the redundancy of the midportion of the gallbladder, we inserted 1/5 5 mm port in the subcostal position, and use this to retract the mid body of the gallbladder. This enabled us to dissect out the triangle of Calot low completely. Photographs were taken. We clipped the cystic duct on the gallbladder side then made a small opening in the cystic duct. Several small stones were evacuated from the cystic duct. We brought onto the field the percutaneous cholangiogram catheter. It was passed with the stylette through a separate stab wound in the intra-abdominal wall. Stylette was removed, and catheter threaded into the cystic duct approximately 1 cm. A clip was applied, patient leveled out laparoscopic instruments removed, and a series of cholangiograms were obtained. We shot approximately 10 cc of full-strength Isovue real-time with intraoperative fluoroscopy imaging. Significant for complete opacification of the intrahepatic , common hepatic, common bile ducts. There was egress of contrast into the duodenum although sluggish. We gave the patient milligram of gone, IV, and the egress into the duodenum tolerated. There was no evidence of bile leak. There was an indentation in the common hepatic duct likely secondary to tortuosity. I did not believe this represented a intra-ductal filling defect such as a stone. At this point I felt the cholangiogram was normal given the complete opacification of the biliary system, the absence of any apparent ductal filling defects, and opacification of the duodenum. Return to the peritoneal cavity remove the cholangiogram catheter and secured the cystic duct stump proximally with 3 clips. Photos are taken. The cystic duct was divided in its entirety. We now secured the cystic artery which was cephalad medial its usual location. Secured with 2 clips proximally one distally divided. The gallbladder was removed from the liver bed using hook cautery dissection under excellent visualization. He was placed in an Endobag and brought out of the patient to the supraumbilical port site incision. We returned the peritoneal cavity checked for bleeding there was none. Sponge and counts were correct. All ports removed under direct visualization wounds closed with 0 Vicryl 3-0 Vicryl benzoin and Steri-Strips. Patient tolerated the procedure well, extubated, taken recovery room stable condition.
[2017-12-04] MEDS: HYDROMORPHONE HCL INJ/PF 2 MG/ML AMPULE IV PRN (15:57)
--- NOTE | 2017-12-04 15:59 | RADIOLOGY REPORT (SQ) ---
EXAM DESCRIPTION: CHOLANGIOGRAM OPERATIVE COMPLETED DATE/TIME: 12/04/2017 3:45 pm REASON FOR STUDY: LAPROSCOPIC CHOLANGIOGRAM COMPARISON: None. FLUOROSCOPY TIME: 0.2 minutes 4 images saved to PACS. TECHNIQUE: Spot images were obtained from an intraoperative cholangiogram. LIMITATIONS: None. FINDINGS: There is opacification of the bile ducts, cystic duct remnants and second portion of the d uodenum without evidence of fixed filling defect or significant extravasation. IMPRESSION: INTRAOPERATIVE CHOLANGIOGRAM. COMMENT: Quality ID [id number]: Final reports for procedures using fluoroscopy that document radiation exp osure indices, or exposure time and number of fluorographic images (if radiation exposure indices are not available) TECHNICAL DOCUMENTATION: JOB ID: [id number] [employer]- All Rights Reserved Reading location - IP/workstation name: [email or web address]
--- NOTE | 2017-12-04 16:10 | EKG REPORT ---
SEVERITY:- ABNORMAL ECG - SINUS RHYTHM RIGHT BUNDLE BRANCH BLOCK : Confirmed by: Micheal Borges MD 04-Dec-2017 16:09:23
[2017-12-04] MEDS ORDERED: NEOSTIGMINE METHYLSULFATE 10 MG/10 ML VIAL ONE (16:17)
[2017-12-04] MEDS ORDERED: GLYCOPYRROLATE INJ 0.4 MG/2 ML VIAL ONE (16:17)
[2017-12-04] MEDS ORDERED: PHENYLEPHRINE HCL INJ/PF 10 MG/1 ML SDV ONE (16:17)
[2017-12-04] MEDS ORDERED: SUCCINYLCHOLINE CHLORIDE INJ 200 MG/10 ML VIAL ONE (16:17)
[2017-12-04] MEDS ORDERED: DEXAMETHASONE SOD PHOSPHATE INJ 4 MG/1 ML VIAL ONE (16:17)
[2017-12-04] MEDS ORDERED: ROCURONIUM BROMIDE INJ 50 MG/5 ML VIAL IV ONE (16:17)
[2017-12-04] MEDS ORDERED: ONDANSETRON HCL INJ/PF 4 MG/2 ML SDV ONE (16:17)
[2017-12-04] MEDS ORDERED: LIDOCAINE 2% INJ-PF (20 MG/ML) 2 ML AMPUL ONE (16:17)
[2017-12-04] MEDS ORDERED: METOCLOPRAMIDE HCL INJ/PF 10 MG/2 ML SDV ONE (16:17)
[2017-12-04] MEDS ORDERED: HYDROMORPHONE HCL INJ/PF 2 MG/ML AMPULE ONE (16:30)
[2017-12-05 04:12] LABS: APPEARANCE,URINE CLEAR; BILIRUBIN,URINE NEGATIVE (NEGATIVE); COLOR,URINE YELLOW; GLUCOSE, URINE NEGATIVE (NEGATIVE); KETONES,URINE NEGATIVE (NEGATIVE); LEUKOCYTE ESTERASE,URINE NEGATIVE (NEGATIVE); NITRITE,URINE NEGATIVE (NEGATIVE); PROTEIN,URINE NEGATIVE (NEGATIVE); URINE SPECIFIC GRAVITY 1.006
[2017-12-05] MEDS: PIPERACILLIN SODIUM/TAZOBACTAM 3.375 GM in NORMAL SALINE 100 ML IV SCH (05:45)
[2017-12-05 06:11] LABS: HEMATOCRIT 36.4 % (36.0-47.0); HEMOGLOBIN 11.7 g/dL (12.0-15.5); MEAN CORPUSCULAR HEMOGLOBIN 27.7 pg (27.0-33.4); MEAN CORPUSCULAR HGB CONC 32.1 g/dL (32.0-36.0); MEAN CORPUSCULAR VOLUME 86 fl (80-97); PLATELET COUNT 195 10^3/uL (150-450); RED BLOOD COUNT 4.21 10^6/uL (3.72-5.28); RED CELL DISTRIBUTION WIDTH 18.3 % (11.5-14.0); WHITE BLOOD COUNT 8.7 10^3/uL (4.0-10.5)
[2017-12-05 06:32] LABS: ANION GAP 11 (5-19); BLOOD UREA NITROGEN 6 mg/dL (7-20); CALCIUM 9.2 mg/dL (8.4-10.2); CARBON DIOXIDE 26 mmol/L (22-30); CHLORIDE 103 mmol/L (98-107); GLUCOSE 182 mg/dL (75-110); POTASSIUM 4.4 mmol/L (3.6-5.0); SODIUM 140.2 mmol/L (137-145)
[2017-12-05] MEDS: ENOXAPARIN SODIUM INJ 100 MG/1 ML DISP.SYRIN SUBCUT SCH ×2 (10:24→21:26)
--- NOTE | 2017-12-05 12:43 | PDOC PROGRESS REPORT ---
Subjective Progress Note for:: 12/05/17 Subjective:: The patient is currently admitted with gallstone pancreatitis and acute cholecystitis due to cholelithiasis. Today is postoperative day #1 status post laparoscopic cholecystectomy with lysis of adhesions. The patient has done well postoperatively. She had an unremarkable evening. I spoke to general surgery this morning from their perspective she is stable and the anticipate discharge soon. The patient states that she does not feel that she is able to be discharged today. She would like to have her diet advanced. I anticipate discharge tomorrow. We will also need to restart the patient's anticoagulation today and monitor for bleeding. Please note that the patient was on chronic prednisone for rheumatoid arthritis prior to admission. This was held. Reason For Visit: ACUTE PANCREATITIS Physical Exam Vital Signs: Temp Pulse Resp BP Pulse Ox 97.5 F 88 12 143/70 H 97 12/05/17 11:56 12/05/17 11:56 12/05/17 11:56 12/05/17 11:56 12/05/17 11:56 Intake & Output 12/04/17 12/05/17 12/06/17 06:59 06:59 06:59 Intake Total 2700 4891 Output Total 1960 2130 Balance 740 2761 Weight 112.3 kg Additional comments: The patient appears to be her stated age. She does not appear to be in any distress. She is resting comfortably. Her facial appearance is unremarkable. Her cardiac exam is regular without murmurs, gallops or rubs. Her lungs are clear to auscultation bilaterally both anteriorly and posteriorly. Her stomach is soft and flat. Bowel sounds are present. He has 4 incisions that are covered with Steri-Strips. The incision over the umbilicus has a tiny amount of erythema around the Steri-Strips. She does not have any guarding or rebound and there are no hernias or masses present. The lower extremities are unremarkable. The skin is warm, dry and intact without lesions or rashes. Results Laboratory Results: 12/05/17 05:02 12/05/17 05:02 12/05/17 12/05/17 12/05/17 03:57 05:02 05:02 WBC 8.7 RBC 4.21 Hgb 11.7 L Hct 36.4 MCV 86 MCH 27.7 MCHC 32.1 RDW 18.3 H Plt Count 195 Sodium 140.2 Potassium 4.4 Chloride 103 Carbon Dioxide 26 Anion Gap 11 BUN 6 L Creatinine 0.64 Est GFR ( Amer) > 60 Est GFR (Non-Af Amer) > 60 Glucose 182 H Calcium 9.2 Magnesium 2.3 Urine Color YELLOW Urine Appearance CLEAR Urine pH 7.0 Ur Specific [place] 1.006 Urine Protein NEGATIVE Urine Glucose (UA) NEGATIVE Urine Ketones NEGATIVE Urine Blood NEGATIVE Urine Nitrite NEGATIVE Ur Leukocyte Esterase NEGATIVE Urine WBC (Auto) 1 Urine RBC (Auto) 1 Impressions: Abdomen/Pelvis CT 12/01/17 00:00 IMPRESSION: Mild gallbladder wall thickening, mildly dilated intrahepatic ducts , and adjacent inflammatory changes in the peripancreatic soft tissues, probable pancreatitis with adjacent reactive changes. No calcified stones or common duct dilatation identified. Lower lobe subsegmental atelectasis and small pleural effusions bilaterally. Abdomen Ultrasound 12/02/17 00:00 IMPRESSION: Midline pancreas is unremarkable by ultrasound. No definite gallbladder wall thickening or pericholecystic fluid. Tiny focus of adenomyosis in the anterior gallbladder wall. Small amount of dependent sludge in the gallbladder. No intra or extrahepatic biliary ductal dilatation Chest X-Ray 12/04/17 00:00 IMPRESSION: NO ACUTE CARDIOPULMONARY PROCESS. CHRONIC CHANGES ABOVE. Cholangiogram 12/04/17 00:00 IMPRESSION: INTRAOPERATIVE CHOLANGIOGRAM. Assessment & Plan - Diagnosis (1) Acute gallstone pancreatitis Is this a current diagnosis for this admission?: Yes Plan: Postoperative day #1 status post laparoscopic cholecystectomy with lysis of adhesions. Now that the nidus of infection is gone up going to discontinue antibiotics. When the patient was initially admitted she refused surgery. She was having increasing fevers up to 101.8. Therefore, antibiotics were added, but now that she has had surgery I will discontinue her antibiotics. (2) DVT (deep venous thrombosis) Is this a current diagnosis for this admission?: Yes Plan: The patient has had a recent DVT. Upon presentation this was being treated with Eliquis. For this hospitalization we have been using Lovenox. Lovenox was held yesterday. It will be restarted today. Provided there is no bleeding it should be safe to discharge her on Eliquis tomorrow. (3) Essential hypertension Is this a current diagnosis for this admission?: Yes Plan: I will restart her oral antihypertensives. (4) Rheumatoid arthritis Is this a current diagnosis for this admission?: Yes Plan: She was on prednisone when she came in. She is currently not receiving anything but she appears to be okay. She has not required stress dose steroids. (5) SIRS (systemic inflammatory response syndrome) Is this a current diagnosis for this admission?: Yes (6) Transaminitis Is this a current diagnosis for this admission?: Yes Plan: Levels have been improving and are now nearly normal. The patient was noted not to have a normal-appearing liver intraoperatively. This is likely due to the fact that she has HCV. She has been treated with Harvoni therapy. I will repeat levels in the morning. - Time Time Spent with patient: 25-34 minutes - Inpatient Certification Medical Necessity: Need Close Monitoring Due to Risk of Patient Decompensation, Risk of Complication if Not Cared For in Hospital
[2017-12-05] MEDS ORDERED: HYDROCHLOROTHIAZIDE 25 MG TABLET PO ONE (14:00)
[2017-12-05] MEDS ORDERED: HYDRALAZINE HCL INJ/PF 20 MG/1 ML SDV IV PRN (14:00)
--- NOTE | 2017-12-05 19:16 | PDOC PROGRESS REPORT ---
Subjective Progress Note for:: 12/05/17 Subjective:: less pains and tolerating clears Reason For Visit: ACUTE PANCREATITIS Physical Exam Vital Signs: Temp Pulse Resp BP Pulse Ox 97.5 F 95 12 143/70 H 97 12/05/17 11:56 12/05/17 14:00 12/05/17 11:56 12/05/17 11:56 12/05/17 11:56 Intake & Output 12/04/17 12/05/17 12/06/17 06:59 06:59 06:59 Intake Total 2700 4891 1034 Output Total 1960 2130 900 Balance 740 2761 134 Weight 112.3 kg Exam: abd is flat and soft. All incisions with dry steri-strips Results Laboratory Results: 12/05/17 05:02 12/05/17 05:02 12/05/17 12/05/17 12/05/17 03:57 05:02 05:02 WBC 8.7 RBC 4.21 Hgb 11.7 L Hct 36.4 MCV 86 MCH 27.7 MCHC 32.1 RDW 18.3 H Plt Count 195 Sodium 140.2 Potassium 4.4 Chloride 103 Carbon Dioxide 26 Anion Gap 11 BUN 6 L Creatinine 0.64 Est GFR ( Amer) > 60 Est GFR (Non-Af Amer) > 60 Glucose 182 H Calcium 9.2 Magnesium 2.3 Urine Color YELLOW Urine Appearance CLEAR Urine pH 7.0 Ur Specific [place] 1.006 Urine Protein NEGATIVE Urine Glucose (UA) NEGATIVE Urine Ketones NEGATIVE Urine Blood NEGATIVE Urine Nitrite NEGATIVE Ur Leukocyte Esterase NEGATIVE Urine WBC (Auto) 1 Urine RBC (Auto) 1 Impressions: Abdomen/Pelvis CT 12/01/17 00:00 IMPRESSION: Mild gallbladder wall thickening, mildly dilated intrahepatic ducts , and adjacent inflammatory changes in the peripancreatic soft tissues, probable pancreatitis with adjacent reactive changes. No calcified stones or common duct dilatation identified. Lower lobe subsegmental atelectasis and small pleural effusions bilaterally. Abdomen Ultrasound 12/02/17 00:00 IMPRESSION: Midline pancreas is unremarkable by ultrasound. No definite gallbladder wall thickening or pericholecystic fluid. Tiny focus of adenomyosis in the anterior gallbladder wall. Small amount of dependent sludge in the gallbladder. No intra or extrahepatic biliary ductal dilatation Chest X-Ray 12/04/17 00:00 IMPRESSION: NO ACUTE CARDIOPULMONARY PROCESS. CHRONIC CHANGES ABOVE. Cholangiogram 12/04/17 00:00 IMPRESSION: INTRAOPERATIVE CHOLANGIOGRAM. Assessment & Plan - Plan Summary Plan Summary: OK to increase diet. OK to discharge when tolerating diet well and follow up with Dr Montilla in surgical clinic in 2 weeks.
[2017-12-05] MEDS: HYDROMORPHONE HCL INJ/PF 2 MG/ML AMPULE IV PRN (19:25)
[2017-12-06 05:16] LABS: ABSOLUTE EOSINOPHILS # (AUTO) 0.1 10^3/uL (0.0-0.6); ABSOLUTE MONOCYTES (AUTO) 0.5 10^3/uL (0.1-1.4); ABSOLUTE NEUT (AUTO) 5.2 10^3/uL (1.7-8.2); BASOPHILS % (AUTO) 0.6 % (0-2); EOSINOPHILS % (AUTO) 0.9 % (0-6); HEMOGLOBIN 11.4 g/dL (12.0-15.5); LYMPHOCYTES % (AUTO) 25.5 % (13-45); MEAN CORPUSCULAR HEMOGLOBIN 27.8 pg (27.0-33.4); MEAN CORPUSCULAR HGB CONC 32.5 g/dL (32.0-36.0); MEAN CORPUSCULAR VOLUME 85 fl (80-97); MONOCYTES % (AUTO) 6.9 % (3-13); PLATELET COUNT 205 10^3/uL (150-450); RED CELL DISTRIBUTION WIDTH 18.1 % (11.5-14.0); SEGMENTED NEUTROPHILS % (AUTO) 66.1 % (42-78); TOTAL CELLS COUNTED % (AUTO) 100 %; WHITE BLOOD COUNT 7.9 10^3/uL (4.0-10.5)
[2017-12-06 05:36] LABS: ALANINE AMINOTRANSFERASE 49 U/L (9-52); ALKALINE PHOSPHATASE 72 U/L (38-126); ANION GAP 7 (5-19); ASPARTATE AMINO TRANSFERASE 24 U/L (14-36); BILIRUBIN,DIRECT 0.3 mg/dL (0.0-0.4); BILIRUBIN,TOTAL 0.3 mg/dL (0.2-1.3); BLOOD UREA NITROGEN 5 mg/dL (7-20); CALCIUM 8.9 mg/dL (8.4-10.2); CARBON DIOXIDE 27 mmol/L (22-30); CHLORIDE 105 mmol/L (98-107); GLUCOSE 111 mg/dL (75-110); PHOSPHORUS 3.5 mg/dL (2.5-4.5); SODIUM 139.4 mmol/L (137-145)
[2017-12-06 05:39] LABS: POTASSIUM 3.2 mmol/L (3.6-5.0)
[2017-12-06] MEDS: ENOXAPARIN SODIUM INJ 100 MG/1 ML DISP.SYRIN SUBCUT SCH (09:43)
[2017-12-06] MEDS ORDERED: HYDROCHLOROTHIAZIDE 25 MG TABLET PO SCH (10:00)
[2017-12-06] MEDS ORDERED: POTASSIUM CHLORIDE 10 MEQ TABLET.SA PO ONE (11:36)
[2017-12-06 12:51] VITALS: BP 148/72
--- NOTE | 2017-12-06 16:05 | PDOC DISCHARGE SUMMARY ---
General - Admit/Disc Date/PCP Admission Date/Primary Care Provider: 12/01/17 23:21 MAGED MARIN MD Discharge Date: 12/06/17 - Discharge Diagnosis (1) Acute gallstone pancreatitis Is this a current diagnosis for this admission?: Yes Summary: Resolved. Follow-up with [facility] surgery (2) DVT (deep venous thrombosis) Is this a current diagnosis for this admission?: Yes Summary: Continue eliquis (3) Essential hypertension Is this a current diagnosis for this admission?: Yes Summary: Continue current home medications (4) Rheumatoid arthritis Is this a current diagnosis for this admission?: Yes Summary: She will follow up with primary care provider regarding steroids (5) SIRS (systemic inflammatory response syndrome) Is this a current diagnosis for this admission?: Yes Summary: This has resolved with resolution of her pancreatitis (6) Transaminitis Is this a current diagnosis for this admission?: Yes Summary: Resolved - Additional Information Resuscitation Status: Full Code Discharge Diet: Regular Discharge Activity: Activity As Tolerated, Balance Activity w/Rest Prescriptions: Ondansetron HCl [Zofran 4 mg Tablet] 1 - 2 tab PO Q4H PRN #10 tablet PRN Reason: Oxycodone HCl [Roxicodone] 5 mg PO Q4H PRN #30 tablet PRN Reason: Home Medications: Apixaban [Eliquis 2.5 mg Tablet] 2.5 mg PO BID 12/02/17 Cetirizine HCl [Zyrtec 10 mg Tablet] 1 tab PO DAILY 12/02/17 Hydrochlorothiazide [Hydrodiuril 25 mg Tablet] 25 mg PO DAILY 12/02/17 Ondansetron HCl [Zofran 4 mg Tablet] 1 - 2 tab PO Q4H PRN #10 tablet 12/06/17 Oxycodone HCl [Roxicodone] 5 mg PO Q4H PRN #30 tablet 12/06/17 History of Present Illness Patient complains of: Abdominal pain and nausea History of Present Illness: KAYE KILPATRICK is a 67 year old female with history of rheumatoid arthritis ( on prednisone), DVT (on Eliquis) and HCV (treated with Harvoni) was admitted with above-mentioned complaints. The patient described her pain as burning sensation especially after she vomited and it was localized to the epigastric area. It was constant and very severe which prompted her to come to the hospital. It was relieved by 1 mg IV Dilaudid x1 given in the ED. She also had multiple episodes of vomiting with vomitus of food consistency, nonbloody. She denied any diarrhea or constipation or any hematuchezia or melena. She also denied any fever or chills but complained of some shortness of breath, no chest pain. She denied any urinary symptoms. She said that she was diaphoretic last night. She did not have any focal weakness but she has an unsteady gait and walks with a walker. In the ED, her temperature was 98.7, heart rate 106, respiratory rate 20, blood pressure 196/98 with oxygen saturation of 97% on room air. Her WBC was 14.2 and her hemoglobin was 12.9. [place] [id number] with elevated transaminase, total bili 0.7. CAT scan was done which showed probably acute pancreatitis with adjacent changes, CBD was not dilated. She received 1 L of normal saline and was started on normal saline at 150 mL/h. Hospital Course Hospital Course: KAYE KILPATRICK is a 67 year old female with history of rheumatoid arthritis ( on prednisone), DVT (on Eliquis) and HCV (treated with Harvoni) was admitted with above-mentioned complaints. The patient described her pain as burning sensation especially after she vomited and it was localized to the epigastric area. It was constant and very severe which prompted her to come to the hospital. It was relieved by 1 mg IV Dilaudid x1 given in the ED. She also had multiple episodes of vomiting with vomitus of food consistency, nonbloody. She denied any diarrhea or constipation or any hematuchezia or melena. She also denied any fever or chills but complained of some shortness of breath, no chest pain. She denied any urinary symptoms. She said that she was diaphoretic last night. She did not have any focal weakness but she has an unsteady gait and walks with a walker. In the ED, her temperature was 98.7, heart rate 106, respiratory rate 20, blood pressure 196/98 with oxygen saturation of 97% on room air. Her WBC was 14.2 and her hemoglobin was 12.9. Her lipase [place] 89839 with elevated transaminase, total bili 0.7. CAT scan was done which showed probably acute pancreatitis with adjacent changes, CBD was not dilated. She received 1 L of normal saline and was started on normal saline at 150 mL/h. Patient was admitted to the hospitalist service on telemetry. General surgery was consulted. She was kept n.p.o. and given IV hydration, as needed analgesics and antiemetics. She improved over the next 48 hours. She was started on clear liquid diet and then advance. Her lipase normalized. She had no further nausea or abdominal pain. She had normal bowel activity. She will follow-up with general surgery as an outpatient for possible cholecystectomy. Physical Exam Vital Signs: Temp Pulse Resp BP Pulse Ox 97.5 F 103 H 16 148/72 H 95 12/06/17 12:42 12/06/17 12:42 12/06/17 12:42 12/06/17 12:42 12/06/17 12:42 Intake & Output 12/05/17 12/06/17 12/07/17 06:59 06:59 06:59 Intake Total 4891 1154 240 Output Total 2130 900 Balance 2761 254 240 Weight 112.3 kg 113.3 kg General appearance: PRESENT: no acute distress, morbidly obese, well-developed, well-nourished Head exam: PRESENT: atraumatic, normocephalic Eye exam: PRESENT: conjunctiva pink, EOMI, PERRLA. ABSENT: scleral icterus Ear exam: PRESENT: normal external ear exam Mouth exam: PRESENT: moist, tongue midline Teeth exam: PRESENT: poor dentation Neck exam: ABSENT: carotid bruit, JVD, lymphadenopathy, thyromegaly Respiratory exam: PRESENT: clear to auscultation dang. ABSENT: rales, rhonchi, wheezes Cardiovascular exam: PRESENT: RRR. ABSENT: diastolic murmur, rubs, systolic murmur Pulses: PRESENT: normal dorsalis pedis pul Vascular exam: PRESENT: normal capillary refill GI/Abdominal exam: PRESENT: normal bowel sounds, soft. ABSENT: distended, guarding, mass, organolmegaly, rebound, tenderness Rectal exam: PRESENT: deferred Extremities exam: PRESENT: full ROM. ABSENT: calf tenderness, clubbing, pedal edema Neurological exam: PRESENT: alert, awake, oriented to person, oriented to place , oriented to time, oriented to situation, CN II-XII grossly intact. ABSENT: motor sensory deficit Psychiatric exam: PRESENT: appropriate affect, normal mood. ABSENT: homicidal ideation, suicidal ideation Skin exam: PRESENT: dry, intact, warm. ABSENT: cyanosis, rash Results Laboratory Results: 12/06/17 04:52 12/06/17 04:52 12/06/17 12/06/17 04:52 04:52 WBC 7.9 RBC 4.10 Hgb 11.4 L Hct 35.0 L MCV 85 MCH 27.8 MCHC 32.5 RDW 18.1 H Plt Count 205 Seg Neutrophils % 66.1 Lymphocytes % 25.5 Monocytes % 6.9 Eosinophils % 0.9 Basophils % 0.6 Absolute Neutrophils 5.2 Absolute Lymphocytes 2.0 Absolute Monocytes 0.5 Absolute Eosinophils 0.1 Absolute Basophils 0.0 Sodium 139.4 Potassium 3.2 L D Chloride 105 Carbon Dioxide 27 Anion Gap 7 BUN 5 L Creatinine 0.60 Est GFR ( Amer) > 60 Est GFR (Non-Af Amer) > 60 Glucose 111 H Calcium 8.9 Phosphorus 3.5 Magnesium 1.9 Total Bilirubin 0.3 AST 24 ALT 49 Alkaline Phosphatase 72 Total Protein 6.0 L Albumin 3.0 L Impressions: Abdomen/Pelvis CT 12/01/17 00:00 IMPRESSION: Mild gallbladder wall thickening, mildly dilated intrahepatic ducts , and adjacent inflammatory changes in the peripancreatic soft tissues, probable pancreatitis with adjacent reactive changes. No calcified stones or common duct dilatation identified. Lower lobe subsegmental atelectasis and small pleural effusions bilaterally. Abdomen Ultrasound 12/02/17 00:00 IMPRESSION: Midline pancreas is unremarkable by ultrasound. No definite gallbladder wall thickening or pericholecystic fluid. Tiny focus of adenomyosis in the anterior gallbladder wall. Small amount of dependent sludge in the gallbladder. No intra or extrahepatic biliary ductal dilatation Chest X-Ray 12/04/17 00:00 IMPRESSION: NO ACUTE CARDIOPULMONARY PROCESS. CHRONIC CHANGES ABOVE. Cholangiogram 12/04/17 00:00 IMPRESSION: INTRAOPERATIVE CHOLANGIOGRAM. Qualifiers - * PATEINT BEING DISCHARGED WITH ANY OF THE FOLLOWING DIAGNOSIS?: No Plan Discharge Plan: Home with family Time Spent: Less than 30 Minutes
== END 2017-12-06 14:33 | disposition home or self-care (01) | DRG 418 ==
LOC: ER 17:38 → EH 23:21 → 4S 12-02 01:54
PROVIDERS: ADMIT Internal Medicine Geriatric Medicine; ATTEND Internal Medicine Geriatric Medicine
PROC: BF101ZZ Fluoroscopy of Bile Ducts using Low Osmolar Contrast (ICD-10-PCS; 2017-12-04)
PROC: 0FT44ZZ Resection of Gallbladder, Percutaneous Endoscopic Approach (ICD-10-PCS; principal; 2017-12-04 14:00)
DX: K85.90 Acute pancreatitis without necrosis or infection, unspecified (principal); K80.00 Calculus of gallbladder with acute cholecystitis without obstruction; K66.0 Peritoneal adhesions (postprocedural) (postinfection); M06.9 Rheumatoid arthritis, unspecified; M19.90 Unspecified osteoarthritis, unspecified site; I10 Essential (primary) hypertension; K82.8 Other specified diseases of gallbladder; Z86.718 Personal history of other venous thrombosis and embolism; Z79.82 Long term (current) use of aspirin; R74.0 Nonspecific elevation of levels of transaminase and lactic acid dehydrogenase [LDH]; Z90.710 Acquired absence of both cervix and uterus; Z88.6 Allergy status to analgesic agent; B18.2 Chronic viral hepatitis C; Z79.52 Long term (current) use of systemic steroids
CPT/HCPCS: 36415; 71046; 74177; 74300; 76700; 790; 80048; 80053; 80061; 81001; 83690; 83735; 84100; 85025; 85027; 85610; 87040; 88304; 93005; 93010; 96361; 96374; 96375; 99285; J0131; J0330; J0360; J1100; J1170; J1610; J1650; J2250; J2370; J2405; J2543; J2704; J2765; J3010; J3490; J7030; Q9967

== ENCOUNTER → 2018-05-09 | Outpatient (CLI) | payer MEDICARE, MEDICAID ==
--- NOTE | 2018-05-09 09:10 | RADIOLOGY REPORT (SQ) ---
EXAM DESCRIPTION: CHEST PA/LATERAL COMPLETED DATE/TIME: 05/09/2018 9:00 am REASON FOR STUDY: SOB COMPARISON: 12/04/2017 and 09/23/2017. EXAM PARAMETERS: NUMBER OF VIEWS: two views TECHNIQUE: Digital Frontal and Lateral radiographic views of the chest acquired. RADIATION DOSE: NA LIMITATIONS: none FINDINGS: LUNGS AND PLEURA: Chronic elevation of the left hemidiaphragm. Again seen are linear dens ities in the lower lobes. No lobar infiltrate. No pleural effusion or pneumothorax. MEDIASTINUM AND HILAR STRUCTURES: No masses or contour abnormalities. HEART AND VASCULAR STRUCTURES: Heart normal size. No evidence for failure. BONES: No acute findings. HARDWARE: None in the chest. OTHER: No other significant finding. IMPRESSION: CHRONIC ELEVATION OF THE LEFT HEMIDIAPHRAGM WITH LINEAR ATELECTASIS/ SCARRING, UNCHANGED . NO ACUTE FINDINGS. TECHNICAL DOCUMENTATION: JOB ID: [id number] [employer]- All Rights Reserved Reading location - IP/workstation name: [email or web address]
[2018-05-10 09:05] LABS: ABSOLUTE EOSINOPHILS # (AUTO) 0.1 10^3/uL (0.0-0.6); ABSOLUTE LYMPHOCYTES (AUTO) 1.7 10^3/uL (0.5-4.7); ABSOLUTE MONOCYTES (AUTO) 0.3 10^3/uL (0.1-1.4); ABSOLUTE NEUT (AUTO) 2.9 10^3/uL (1.7-8.2); BASOPHILS % (AUTO) 0.6 % (0-2); HEMATOCRIT 40.2 % (36.0-47.0); MEAN CORPUSCULAR HEMOGLOBIN 27.8 pg (27.0-33.4); MEAN CORPUSCULAR HGB CONC 32.4 g/dL (32.0-36.0); MEAN CORPUSCULAR VOLUME 86 fl (80-97); MONOCYTES % (AUTO) 5.7 % (3-13); PLATELET COUNT 282 10^3/uL (150-450); RED CELL DISTRIBUTION WIDTH 13.9 % (11.5-14.0); SEGMENTED NEUTROPHILS % (AUTO) 58.7 % (42-78); TOTAL CELLS COUNTED % (AUTO) 100 %
[2018-05-10 09:23] LABS: ALANINE AMINOTRANSFERASE 8 U/L (9-52); ALBUMIN 3.8 g/dL (3.5-5.0); ALKALINE PHOSPHATASE 68 U/L (38-126); ANION GAP 14 (5-19); ASPARTATE AMINO TRANSFERASE 20 U/L (14-36); BILIRUBIN,DIRECT 0.3 mg/dL (0.0-0.4); BILIRUBIN,TOTAL 0.3 mg/dL (0.2-1.3); BLOOD UREA NITROGEN 17 mg/dL (7-20); CALCIUM 9.6 mg/dL (8.4-10.2); CARBON DIOXIDE 25 mmol/L (22-30); CHLORIDE 102 mmol/L (98-107); CHOLESTEROL 206.92 mg/dL (0-200); GLUCOSE 117 mg/dL (75-110); POTASSIUM 4.1 mmol/L (3.6-5.0); SODIUM 141.4 mmol/L (137-145); TOTAL PROTEIN 8.1 g/dL (6.3-8.2); TRIGLYCERIDES 127 mg/dL (<150)
[2018-05-10 09:34] LABS: DIRECT LDL 108 mg/dL (<100)
== END ==
LOC: OD 08:46
PROVIDERS: ATTEND Family Medicine Geriatric Medicine
DX: I10 Essential (primary) hypertension (principal); E66.9 Obesity, unspecified; J98.4 Other disorders of lung; R06.02 Shortness of breath; Z79.899 Other long term (current) drug therapy
CPT/HCPCS: 36415; 71046; 80053; 80061; 84443; 85025

== ENCOUNTER → 2018-05-10 | Outpatient (CLI) | payer MEDICARE, MEDICAID ==
[~2018-05-10] MED LIST: ALBUTEROL SULFATE 0.083% NEB 2.5 MG/3 ML AMPUL NEB ONE
--- NOTE | 2018-05-15 12:14 | Pulmonary Function Test ---
Pulmonary Function Test Date of Procedure:: 05/15/18 INDICATION:: Shortness of breath Referring Provider: Dr. Ybarra Dry Plasterer: Lexi Feliz GASTROENTEROLOGY PROFESSOR - Report Spirometry: FVC 1.37 L 40% postbronchodilator 1.44 L 50% FEV1 0.97 L 43% postbronchodilator 1.05 L 46% FEV1/FVC % 71 postbronchodilator 73 predicted 82 FEF 25-75% 0.63 L 27% postbronchodilator 2.70 L 30% Lung Volume: Total lung capacity 4.13 L 86% Vital capacity 1.37 L 48% Inspiratory capacity 0.67 L FRC N2 3.46 L R 147% ERV 0.44 L RV 2.76 144% RV/TLC % 67 predicted 40 Diffusion Capactity: Diffusion capacity 9.4 41% DLCO/VA 5.40 147% Impression: Severe obstructive ventilatory defect with insignificant response to bronchodilator therapy. This in and of itself does not preclude a clinical trial of bronchodilator. No restrictive ventilatory defect. No hyperinflation. Moderate air trapping. Severe decrease in diffusion capacity.
== END ==
LOC: RT 08:43
PROVIDERS: ATTEND Family Medicine Geriatric Medicine
DX: R06.02 Shortness of breath (principal); Z87.891 Personal history of nicotine dependence
CPT/HCPCS: 94729; 94727; 94060; A9270

== ENCOUNTER → 2018-09-14 | Outpatient (CLI) | payer MEDICARE, MEDICAID ==
--- NOTE | 2018-09-14 08:59 | RADIOLOGY REPORT (SQ) ---
EXAM DESCRIPTION: MICHAEL SWALLOW COMPLETED DATE/TIME: 09/14/2018 8:40 am REASON FOR STUDY: DYSPHAGIA (R13.10) R13.10 DYSPHAGIA, UNSPECIFIED COMPARISON: None. TECHNIQUE: Videofluoroscopic swallowing examination was performed in conjunction with speech patholo gy. Videofluoroscopic imaging was obtained and reviewed and these are the findings: RADIATION DOSE: Fluoro time 1.2 minutes 1 images saved to PACS. LIMITATIONS: None FINDINGS: The patient was brought into the fluoro room and placed upright on a modified barium swall ow chair. The patient was then given multiple consistencies mixed with barium to swallow under live fluoroscopic video guidance. According to the Speech Pathologist there was no penetration or aspirat ion. Please refer to the speech pathology report for further details. Anterior bridging osteophyte formations were seen at the C3-4, C4-5 and C5-6 levels. IMPRESSION: NO EVIDENCE OF PENETRATION OR ASPIRATION.PLEASE SEE SPEECH PATHOLOGIST REPORT FOR OTHER FINDINGS AND RECOMMENDATIONS. COMMENT: None Quality ID [id number]: Final reports for procedures using fluoroscopy that document radiation exposure olinda rodney, or exposure time and number of fluorographic images (if radiation exposure indices are not avail able) TECHNICAL DOCUMENTATION: JOB ID: [id number] [employer]- All Rights Reserved Reading location - IP/workstation name: [email or web address]
--- NOTE | 2018-09-14 09:04 | RADIOLOGY REPORT (SQ) ---
EXAM DESCRIPTION: CHEST 2 VIEWS COMPLETED DATE/TIME: 09/14/2018 8:40 am REASON FOR STUDY: DYSPNEA (R06.09) COMPARISON: 12/04/2017 EXAM PARAMETERS: NUMBER OF VIEWS: two views TECHNIQUE: Digital Frontal and Lateral radiographic views of the chest acquired. RADIATION DOSE: NA LIMITATIONS: none FINDINGS: LUNGS AND PLEURA: Stable subsegmental linear areas of scarring or atelectasis in the mid and lower lung zones. No acute pulmonary consolidation. No pneumothorax or pleural effusion. [place] tion of the left hemidiaphragm, stable finding. MEDIASTINUM AND HILAR STRUCTURES: No masses or contour abnormalities. HEART AND VASCULAR STRUCTURES: Heart normal size. No evidence for failure. BONES: No acute findings. HARDWARE: None in the chest. OTHER: No other significant finding. IMPRESSION: 1. Stable examination of the chest since the prior study dated 12/04/2017. Chronic orozco ges in the mid-lower lung zones. No acute findings. TECHNICAL DOCUMENTATION: JOB ID: [id number] [facility]- All Rights Reserved Reading location - IP/workstation name: [email or web address]
--- NOTE | 2018-09-14 09:55 | ST Modified Barium Swallow ---
Recommendation - Recommendations Recommendations: Recommend reflux precautions based on patient's symptoms. No oral or pharyngeal deficits noted. No additional skilled intervention indicated at this time. Medical Diagnoses - Medical Diagnoses Medical Diagnosis Description & ICD-10 Code(s): dysphagia R13.10 Other Medical Diagnoses/Co-Morbidities: per patient report: rheumatoid arthtritis, reflux, COPD, high blood pressure - ICD-10 Tx Diagnosis Coding (1) Dysphagia ICD-10 Code(s): R13.10 - DYSPHAGIA, UNSPECIFIED ST Modified Barium Swallow - General Date: 09/14/18 Referring Physician: Dr. Michael Risks/Precautions: None Date of Onset: 09/09/17 - approximate onset date Reason for Referral: dysphagia - History History obtained from: Patient -: Medical - Patient acted as her own historian. She states that she has had difficulty for approximately 1 year with "hard foods" feeling stuck in her throat. No choking episodes, no coughing with meals, and no recurrent pneumonia reported. No history of CVA or head/neck cancer, no surgeries involving head or neck. Patient does report reflux and a lot of phlegm in her throat. States that she also gets frequent "sore throats", which makes swallowing feel difficult. Medications: per patient report: folic acid, symbicort, albuterol, prednisone, miralax, vitamin B, zolpidem, magnesium, hydroxychloroquine sulfate Allergies: aspirin - Functional Status Prior Functional Status: INDEPENDENT: feeding - independent Current Functional Limitations: feeding - Subjective Patient/caregiver goal(s): safe swallow Cognitive-Linguistic Function: WNL Speech Intelligibility: WNL Current Nutritional Means: PO Current PO diet: Regular Current symptoms: c/o Globus sensation Pain: Patient reports, 0/5 - Objective Assessment: Upright, Left Lateral - Food Trials Used Food trials used: Thin liquids, Pureed, Regular The patient: Was Able to Self Feed - Oral-Motor Skills Dentition: Partial Velo-pharyngeal function: Unremarkable - Assessment Oral prep: Normal Labial closure: Adequate Leakage: None Mastication: Adequate Lingual Movement: Normal Oral stage: Normal for this Procedure - Pharyngeal Stage Initiation of Pharyngeal Stage Reflex: Normal Decreased laryngeal elevation: No Reduced Velopharyngeal Closure: no Reduced pressure generation: No reduced tongue-based retraction: No Pre-swallow pooling in valleculae: None Pre-Swallow pooling in pyriforms: None Reduced Thyro-Hyoid approximation: No Reduced epiglottic excursion: No Reduced pharyngeal peristalsis/contraction: No Post-swallow residulas vallecular: None Post-Swallow residuals in pyriforms: None - Esophageal Stage Cervical Osteophytes noted: Yes - C3-6, osteophytes seen, not impacting function of swallow - Fall Risk Assessment Medications/Conditions that increase fall risks include: Antidepressants, sedatives, anti-arrhythmic, diuretic, benzodiazipenes, neuroleptics. BP regulation problems, cardiac problems, balance or gait deficits, neurological problems. Fall Risk Actions Taken: No action needed - Behavioral Observations During evaluation process patient: was pleasant, was cooperative, able to answer questions - Treatment / Educational Needs: Treatment/Education Needs: Treatment consisted of patient education on the role of the Speech Pathologist. Patient's plan of care and golas were communicated as well as scheduling and attendance policies. Recommendations for initial home program were shared. Patient demonstrated understanding and verbalized agreement. - Impression/Summary Laryngeal Penetration: No Tracheal Aspiration: no Patient presents with: Normal swallow at eval Risk of Aspiration: Minimal Risk of nutritional compromise: None - Recommendations Solid diet recommendations: Regular Liquid Diet Modification: Thin Strict aspiration precautions: No Pt/Family education and followup with MD: Yes Dysphagia therapy with WINDER TENDER: no Reflux Precautions: Taught to Patient Recommended techniques: Fully Upright During Meal - Plan of Care Strategies to optimize patient understanding include:: ongoing assessment of educational needs, implementation of educational strategies, and re-education. - - -: Thank you for the opportunity to work with this patient and his/her family. Should you have any questions about this patient's plan or progress, I can be reached at [phone]. Charge G Code? - - -: Yes ST F.L. Impairment Category - Rationale Based On Rationale Based On: Clin Find., Obj Measures - Swallowing Current G8996: CH 0% Impaired Goal G8997: CH 0% Impaired Discharge G8998: CH 0% Impaired
--- NOTE | 2018-09-14 12:28 | RADIOLOGY REPORT (SQ) ---
EXAM DESCRIPTION: NM LUNG VENT/PERF SCAN COMPLETED DATE/TIME: 09/14/2018 12:04 pm REASON FOR STUDY: DYSPNEA ON EXERTION (R06.09) R13.10 DYSPHAGIA, UNSPECIFIED COMPARISON: None. RADIONUCLIDE AND DOSE: 5.3 millicuries TC-99m MAA Intravenous 31.7 millicuries TC-99m DTPA Inhaled aerosol TECHNIQUE: Eight views of the lungs acquired post ventilation of DTPA aerosol. Eight matching views of the lungs acquired following injection of MAA. LIMITATIONS: None. FINDINGS: VENTILATION: Symmetric and homogeneous distribution of DTPA aerosol during ventilatory pha se. No significant areas of photopenia. PERFUSION: Perfusion images with normal homogenous activity and no wedge-shaped or segmental defects. No ventilation-perfusion mismatches. OTHER: No other significant finding. IMPRESSION: Low probability for pulmonary embolus. TECHNICAL DOCUMENTATION: JOB ID: [id number] [employer]- All Rights Reserved Reading location - IP/workstation name: [email or web address]
== END ==
LOC: RAD 07:53
PROVIDERS: ATTEND Internal Medicine Pulmonary Disease
DX: R10.13 Epigastric pain (principal); R06.09 Other forms of dyspnea
CPT/HCPCS: 71046; 74230; 78582; 92611; A9540; A9567; Q9969; G8996; G8997; G8998

== ENCOUNTER → 2018-09-25 | Outpatient (CLI) | payer MEDICARE, MEDICAID ==
[2018-09-25 09:17] LABS: ALANINE AMINOTRANSFERASE 8 U/L (9-52); CHOLESTEROL 223.88 mg/dL (0-200); GLUCOSE,FASTING 97 mg/dL (<110); TRIGLYCERIDES 118 mg/dL (<150)
[2018-09-25 09:28] LABS: DIRECT LDL 127 mg/dL (<100)
== END ==
LOC: OD 07:28
PROVIDERS: ATTEND Family Medicine Geriatric Medicine
DX: E78.5 Hyperlipidemia, unspecified (principal); J44.9 Chronic obstructive pulmonary disease, unspecified; G47.00 Insomnia, unspecified; R73.9 Hyperglycemia, unspecified; D47.2 Monoclonal gammopathy; M17.11 Unilateral primary osteoarthritis, right knee; M06.9 Rheumatoid arthritis, unspecified; F32.9 Major depressive disorder, single episode, unspecified; I10 Essential (primary) hypertension; Z29.9 Encounter for prophylactic measures, unspecified; Z68.39 Body mass index [BMI] 39.0-39.9, adult
CPT/HCPCS: 36415; 80061; 82947; 82950; 83036; 84460

== ENCOUNTER → 2018-11-08 | Outpatient (CLI) | payer MEDICARE, MEDICAID ==
[2018-11-08 09:28] LABS: ALANINE AMINOTRANSFERASE 33 U/L (9-52); CHOLESTEROL 232.21 mg/dL (0-200); TRIGLYCERIDES 74 mg/dL (<150)
[2018-11-08 09:38] LABS: DIRECT LDL 100 mg/dL (<100)
== END ==
LOC: OD 08:08
PROVIDERS: ATTEND Family Medicine Geriatric Medicine
DX: E78.5 Hyperlipidemia, unspecified (principal); Z79.899 Other long term (current) drug therapy
CPT/HCPCS: 36415; 80061; 84460

== ENCOUNTER → 2018-12-25 | Outpatient (CLI) | payer MEDICARE, MEDICAID ==
[2018-12-25 08:37] LABS: ALANINE AMINOTRANSFERASE 45 U/L (9-52); CHOLESTEROL 210.05 mg/dL (0-200); TRIGLYCERIDES 95 mg/dL (<150)
[2018-12-25 08:48] LABS: DIRECT LDL 87 mg/dL (<100)
== END ==
LOC: OD 07:48
PROVIDERS: ATTEND Family Medicine Geriatric Medicine
DX: E78.5 Hyperlipidemia, unspecified (principal); Z79.899 Other long term (current) drug therapy
CPT/HCPCS: 36415; 80061; 84460

== ENCOUNTER → 2019-02-09 | Outpatient (CLI) | payer MEDICARE, MEDICAID ==
--- NOTE | 2019-02-09 09:07 | WOMENS IMAGING REPORT ---
EXAM DESCRIPTION: BILAT SCREENING MAMMO W/CAD COMPLETED DATE/TIME: 02/09/2019 8:31 am REASON FOR STUDY: Z12.31 ROUTINE BILATERAL SCREENING Z12.31 ENCNTR SCREEN MAMMOGRAM FOR MALIGNANT N EOPLASM OF BRIGITTE COMPARISON: 2015 TECHNIQUE: Standard craniocaudal and mediolateral oblique views of each breast recorded using Family Peta l acquisition. LIMITATIONS: None. FINDINGS: Findings present which are benign by mammographic criteria. No suspicious masses, calcifi cations or architectural distortion. Pertinent benign findings: Benign bilateral breast parenchymal calcifications and vascular calcificat ions Read with the assistance of CAD. .[facility] - R2 Deck Scaler Version 9.2 Benign mammographic findings may include one or more of the following: Smooth masses, popcorn/rim/co arse calcifications, asymmetries, post-procedure changes, and lesions with long-standing stability. IMPRESSION: BENIGN MAMMOGRAPHIC FINDINGS. BIRADS 2 BREAST DENSITY: b. There are scattered areas of fibroglandular density. BIRAD: 2 BENIGN FINDING(S) RECOMMENDATION: ROUTINE SCREENING COMMENT: The patient has been notified of the results by letter per MQSA requirements. Additional no tification policies are in place for contacting patient with suspicious or incomplete findings. Quality ID #[id number]: The [employer] recommends an annual screening mammogram for women aged 40 years or over. This facility utilizes a reminder system to ensure that all patients receive reminder letters, and/or direct phone calls for appointments. This includes reminders for routine scr eening mammograms, diagnostic mammograms, or other Breast Imaging Interventions when appropriate. Th is patient will be placed in the appropriate reminder system. TECHNICAL DOCUMENTATION: FINDING NUMBER: (1) ASSESSMENT: (1) JOB ID: [id number] [employer] [place]- All Rights Reserved Reading location - IP/workstation name: [email or web address]
== END ==
LOC: WI 08:08
PROVIDERS: ATTEND Family Medicine Geriatric Medicine
DX: Z12.31 Encounter for screening mammogram for malignant neoplasm of breast (principal)
CPT/HCPCS: 77067

== ENCOUNTER → 2019-05-01 | Outpatient (CLI) | payer MEDICARE, MEDICAID ==
[2019-05-01 09:18] LABS: ABSOLUTE EOSINOPHILS # (AUTO) 0.1 10^3/uL (0.0-0.6); ABSOLUTE LYMPHOCYTES (AUTO) 2.6 10^3/uL (0.5-4.7); ABSOLUTE MONOCYTES (AUTO) 0.5 10^3/uL (0.1-1.4); ABSOLUTE NEUT (AUTO) 4.5 10^3/uL (1.7-8.2); BASOPHILS % (AUTO) 0.4 % (0-2); EOSINOPHILS % (AUTO) 1.1 % (0-6); HEMATOCRIT 40.7 % (36.0-47.0); HEMOGLOBIN 13.2 g/dL (12.0-15.5); LYMPHOCYTES % (AUTO) 33.5 % (13-45); MEAN CORPUSCULAR HEMOGLOBIN 27.8 pg (27.0-33.4); MEAN CORPUSCULAR HGB CONC 32.5 g/dL (32.0-36.0); MEAN CORPUSCULAR VOLUME 86 fl (80-97); PLATELET COUNT 222 10^3/uL (150-450); RED BLOOD COUNT 4.76 10^6/uL (3.72-5.28); RED CELL DISTRIBUTION WIDTH 13.5 % (11.5-14.0); TOTAL CELLS COUNTED % (AUTO) 100 %; WHITE BLOOD COUNT 7.8 10^3/uL (4.0-10.5)
[2019-05-01 09:45] LABS: ALANINE AMINOTRANSFERASE 39 U/L (9-52); ANION GAP 13 (5-19); BLOOD UREA NITROGEN 24 mg/dL (7-20); CALCIUM 9.6 mg/dL (8.4-10.2); CARBON DIOXIDE 26 mmol/L (22-30); CHLORIDE 101 mmol/L (98-107); CHOLESTEROL 179.53 mg/dL (0-200); GLUCOSE 116 mg/dL (75-110); POTASSIUM 4.5 mmol/L (3.6-5.0); TRIGLYCERIDES 83 mg/dL (<150)
[2019-05-01 10:01] LABS: DIRECT LDL 69 mg/dL (<100)
== END ==
LOC: OD 08:05
PROVIDERS: ATTEND Family Medicine Geriatric Medicine
DX: E78.5 Hyperlipidemia, unspecified (principal); I10 Essential (primary) hypertension; M06.9 Rheumatoid arthritis, unspecified; Z79.899 Other long term (current) drug therapy
CPT/HCPCS: 36415; 80048; 80061; 84460; 85025

== ENCOUNTER 2019-06-16 20:07 | Emergency (ER) | payer MEDICARE, MEDICAID ==
--- NOTE | 2019-06-16 20:31 | ER Document Report ---
ED Medical Screen (RME) - General Chief Complaint: Shortness Of Breath Stated Complaint: SHORTNESS OF BREATH Time Seen by Provider: 06/16/19 20:28 Primary Care Provider: KHUSHI STRATTON MD [Primary Care Provider] - Follow up as needed Mode of Arrival: Ambulatory Information source: Patient Notes: 68-year-old female presents to ED for shortness of breath and cough. She states she was laying in bed and started coughing and it took 2 puffs of her Pro Air 1 of her Symbicort and did not get a whole lot better. She states she became upset and anxious and came to the emergency room. She does have a history of reflux rheumatoid arthritis COPD and asthma. She is alert oriented she is breathing a little heavy. Lungs are little coarse with her COPD. She is a form er smoker does not smoke anymore. I have greeted and performed a rapid initial assessment of this patient. A comprehensive ED assessment and evaluation of the patient, analysis of test results and completion of medical decision making process will be conducted by an additional ED providers. TRAVEL OUTSIDE OF THE [place] IN LAST 30 DAYS: No - Related Data Allergies/Adverse Reactions: aspirin [Aspirin] Adverse Reaction (Intermediate, Verified 11/20/17 21:49) Nausea Past Medical History - Social History Frequency of alcohol use: None Drug Abuse: None - Past Medical History Cardiac Medical History: Reports: Hx DVT, Hx Hypertension Renal/ Medical History: Denies: Hx Peritoneal Dialysis GI Medical History: Reports: Hx Hepatitis - HCV treated. Musculoskeltal Medical History: Reports Hx Arthritis - rheumatoid arthritis. Psychiatric Medical History: Denies: Hx Depression Infectious Medical History: Reports: Hx Hepatitis - HCV treated. Past Surgical History: Reports: Hx Gynecologic Surgery - D&C, Hx Hysterectomy, Hx Orthopedic Surgery - foot surgery , shoulder repair, Hx Tubal Ligation, Other - Immunizations Hx Diphtheria, Pertussis, Tetanus Vaccination: Yes History of Influenza Vaccine for 07/2017 - 12/2017 Season: Yes Influenza Administration Date for 07/2017 - 12/2017 Season: 08/04/17 Physical Exam - Vital signs Vitals: Temp Pulse Resp BP Pulse Ox 98.4 F 101 H 20 162/79 H 97 06/16/19 20:12 06/16/19 20:12 06/16/19 20:12 06/16/19 20:12 06/16/19 20:12 Course - Vital Signs Vital signs: Temp Pulse Resp BP Pulse Ox 98.4 F 101 H 20 162/79 H 97 06/16/19 20:12 06/16/19 20:12 06/16/19 20:12 06/16/19 20:12 06/16/19 20:12 Doctor's Discharge - Discharge Referrals: KHUSHI STRATTON MD [Primary Care Provider] - Follow up as needed
[2019-06-16 20:55] LABS: ABSOLUTE BASOPHILS # (AUTO) 0.1 10^3/uL (0.0-0.2); ABSOLUTE EOSINOPHILS # (AUTO) 0.1 10^3/uL (0.0-0.6); ABSOLUTE LYMPHOCYTES (AUTO) 3.3 10^3/uL (0.5-4.7); ABSOLUTE MONOCYTES (AUTO) 0.6 10^3/uL (0.1-1.4); ABSOLUTE NEUT (AUTO) 5.8 10^3/uL (1.7-8.2); BASOPHILS % (AUTO) 0.6 % (0-2); EOSINOPHILS % (AUTO) 1.3 % (0-6); HEMATOCRIT 40.9 % (36.0-47.0); HEMOGLOBIN 13.5 g/dL (12.0-15.5); LYMPHOCYTES % (AUTO) 33.2 % (13-45); MEAN CORPUSCULAR HEMOGLOBIN 28.3 pg (27.0-33.4); MEAN CORPUSCULAR VOLUME 86 fl (80-97); MONOCYTES % (AUTO) 6.1 % (3-13); PLATELET COUNT 253 10^3/uL (150-450); RED BLOOD COUNT 4.76 10^6/uL (3.72-5.28); RED CELL DISTRIBUTION WIDTH 14.9 % (11.5-14.0); SEGMENTED NEUTROPHILS % (AUTO) 58.8 % (42-78); TOTAL CELLS COUNTED % (AUTO) 100 %; WHITE BLOOD COUNT 9.8 10^3/uL (4.0-10.5)
[2019-06-16 21:25] LABS: ALBUMIN 4.5 g/dL (3.5-5.0); ALKALINE PHOSPHATASE 92 U/L (38-126); ANION GAP 14 (5-19); ASPARTATE AMINO TRANSFERASE 46 U/L (14-36); BILIRUBIN,DIRECT 0.2 mg/dL (0.0-0.4); BILIRUBIN,TOTAL 0.3 mg/dL (0.2-1.3); BLOOD UREA NITROGEN 19 mg/dL (7-20); CALCIUM 9.9 mg/dL (8.4-10.2); CARBON DIOXIDE 27 mmol/L (22-30); CHLORIDE 99 mmol/L (98-107); GLUCOSE 128 mg/dL (75-110); POTASSIUM 3.8 mmol/L (3.6-5.0); TOTAL PROTEIN 8.4 g/dL (6.3-8.2)
[2019-06-16] MEDS ORDERED: IPRATROPIUM/ALBUTEROL 0.5-2.5 MG/3 ML AMPUL NEB ONE ×2 (21:30→21:51)
--- NOTE | 2019-06-16 21:50 | ER Document Report ---
ED General - General Chief Complaint: Shortness Of Breath Stated Complaint: SHORTNESS OF BREATH Time Seen by Provider: 06/16/19 20:28 Primary Care Provider: KHUSHI STRATTON MD [Primary Care Provider] - Follow up as needed Mode of Arrival: Ambulatory Information source: Patient, Relative Notes: 68-year-old female with hypertension, COPD presents with complaint of an acute onset of shortness of breath that occurred 1 hour prior to arrival to the emergency department. Patient states that she was playing with her grandchild when he jumped on her chest causing her to begin coughing. She states that she did take her pro-air with some relief. She denies any recent illness, fever, chills, nausea, vomiting, chest pain, lower extremity swelling, history of PE. She does report a history of pericardial effusion which required drainage approximately 1 year ago in [place]. Patient no longer smokes. 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 TRAVEL OUTSIDE OF THE [place] IN LAST 30 DAYS: No - HPI Onset: Just prior to arrival Onset/Duration: Sudden Quality of pain: No pain Severity: None Pain Level: Denies Associated symptoms: Nonproductive cough, Shortness of breath. denies: Chest pain, Fever, Headache, Leg swelling, Nausea, Vomiting, Sore throat Exacerbated by: Denies Similar symptoms previously: Yes Recently seen / treated by doctor: No - Related Data Allergies/Adverse Reactions: aspirin [Aspirin] Adverse Reaction (Intermediate, Verified 11/20/17 21:49) Nausea Past Medical History - General Information source: Patient - Social History Smoking Status: Former Smoker Frequency of alcohol use: None Drug Abuse: None Lives with: Family Family History: Reviewed & Not Pertinent Patient has suicidal ideation: No Patient has homicidal ideation: No - Past Medical History Cardiac Medical History: Reports: Hx DVT, Hx Hypertension Renal/ Medical History: Denies: Hx Peritoneal Dialysis GI Medical History: Reports: Hx Hepatitis - HCV treated. Musculoskeletal Medical History: Reports Hx Arthritis - rheumatoid arthritis. Psychiatric Medical History: Denies: Hx Depression Infectious Medical History: Reports: Hx Hepatitis - HCV treated. Past Surgical History: Reports: Hx Gynecologic Surgery - D&C, Hx Hysterectomy, Hx Orthopedic Surgery - foot surgery , shoulder repair, Hx Tubal Ligation, Other - Immunizations Hx Diphtheria, Pertussis, Tetanus Vaccination: Yes Review of Systems - Review of Systems Notes: REVIEW OF SYSTEMS: CONSTITUTIONAL : Denies fever, chills, or sweats. Denies recent illness. Denies weight loss, recent hospitalizations. EENT: Denies visual changes, eye pain. Denies sore throat, oral lesions, difficulty swallowing. CARDIOVASCULAR: Denies chest pain. Denies palpitations. Denies lower extremity edema. RESPIRATORY: + cough. + shortness of breath, denies wheezing. GASTROINTESTINAL: Denies abdominal pain or distention. Denies nausea, vomiting, or diarrhea. Denies blood in vomitus, stools, or per rectum. Denies black, tarry stools. Denies constipation. GENITOURINARY: Denies difficulty urinating, painful urination, frequency, blood in urine, or vaginal discharge. MUSCULOSKELETAL: Denies back or neck pain or stiffness. Denies joint pain or swelling. SKIN: Denies rash, lesions or sores. HEMATOLOGIC : Denies easy bruising or bleeding. LYMPHATIC: Denies swollen glands. NEUROLOGICAL: Denies confusion or altered mental status. Denies loss of consciousness. Denies dizziness or lightheadedness. Denies headache. Denies weakness or paralysis. Denies problems difficulty with ambulation, slurred speech. Denies sensory loss, numbness, or tingling. Denies seizures. PSYCHIATRIC: Denies anxiety or stress. Denies depression, suicidal ideation, or homicidal ideation. Denies visual or auditory hallucinations. Physical Exam - Vital signs Vitals: Temp Pulse Resp BP Pulse Ox 98.4 F 101 H 20 162/79 H 97 06/16/19 20:12 06/16/19 20:12 06/16/19 20:12 06/16/19 20:12 06/16/19 20:12 - Notes Notes: PHYSICAL EXAMINATION: GENERAL: Well-appearing, well-nourished and in no acute distress. HEAD: Atraumatic, normocephalic. EYES: Pupils equal round and reactive to light, extraocular movements intact, conjunctiva are normal. ENT: Nares patent, oropharynx clear without exudates. Moist mucous membranes. NECK: Normal range of motion, supple without lymphadenopathy LUNGS: Breath sounds clear to auscultation bilaterally and equal. No wheezes rales or rhonchi. Visibly dyspneic, no acute tachypnea. HEART: Regular rate and rhythm without murmurs ABDOMEN: Soft, nontender, nondistended abdomen. No guarding, no rebound. No masses appreciated. Female : deferred Musculoskeletal: Normal range of motion, no pitting or edema. No cyanosis. NEUROLOGICAL: Cranial nerves grossly intact. Normal speech, normal gait. Normal sensory, motor exams PSYCH: Normal mood, normal affect. SKIN: Warm, Dry, normal turgor, no rashes or lesions noted. Course - Re-evaluation Re-evalutation: Laboratory 06/16/19 06/16/19 06/16/19 20:35 20:35 20:35 WBC 9.8 RBC 4.76 Hgb 13.5 Hct 40.9 MCV 86 MCH 28.3 MCHC 33.0 RDW 14.9 H Plt Count 253 Lymph % (Auto) 33.2 [place] % (Auto) 6.1 Eos % (Auto) 1.3 Baso % (Auto) 0.6 Absolute Neuts (auto) 5.8 Absolute Lymphs (auto) 3.3 Absolute Monos (auto) 0.6 Absolute Eos (auto) 0.1 Absolute Basos (auto) 0.1 Seg Neutrophils % 58.8 D-Dimer VBG pH VBG pCO2 VBG HCO3 VBG Base Excess Sodium 140.3 Potassium 3.8 Chloride 99 Carbon Dioxide 27 Anion Gap 14 BUN 19 Creatinine 0.96 Est GFR ( Amer) > 60 Est GFR (MDRD) Non-Af 57 L Glucose 128 H Calcium 9.9 Total Bilirubin 0.3 Direct Bilirubin 0.2 Neonat Total Bilirubin Not Reportable Neonat Direct Bilirubin Not Reportable Neonat Indirect Bili Not Reportable AST 46 H ALT 35 Alkaline Phosphatase 92 Creatine Kinase 39 CK-MB (CK-2) Troponin I NT-Pro-B Natriuret Pep Total Protein 8.4 H Albumin 4.5 06/16/19 06/16/19 06/16/19 21:45 21:45 21:45 WBC RBC Hgb Hct MCV MCH MCHC RDW Plt Count Lymph % (Auto) [place] % (Auto) Eos % (Auto) Baso % (Auto) Absolute Neuts (auto) Absolute Lymphs (auto) Absolute Monos (auto) Absolute Eos (auto) Absolute Basos (auto) Seg Neutrophils % D-Dimer 0.72 H VBG pH 7.34 VBG pCO2 48.7 VBG HCO3 25.7 VBG Base Excess -0.5 Sodium Potassium Chloride Carbon Dioxide Anion Gap BUN Creatinine Est GFR ( Amer) Est GFR (MDRD) Non-Af Glucose Calcium Total Bilirubin Direct Bilirubin Neonat Total Bilirubin Neonat Direct Bilirubin Neonat Indirect Bili AST ALT Alkaline Phosphatase Creatine Kinase CK-MB (CK-2) < 0.22 Troponin I < 0.012 NT-Pro-B Natriuret Pep 44 Total Protein Albumin Chest X-Ray 06/16/19 20:29 IMPRESSION: Stable elevation of the left hemidiaphragm. Bibasilar subsegmental atelectasis. Tiny bibasilar effusions and/or pleural thickening copyright 2010 [employer]- All Rights Reserved Chest/Abdomen CTA 06/16/19 21:52 IMPRESSION: No evidence of pulmonary embolism other acute abnormality within the chest. TECHNICAL DOCUMENTATION: Quality ID # 436: Final reports with documentation of one or more dose reduction techniques (e.g., Automated exposure control, adjustment of the mA and/or kV according to patient size, use of iterative reconstruction technique) copyright 2010 [employer]- All Rights Reserved Temp Pulse Resp BP Pulse Ox 98.4 F 101 H 20 143/72 H 100 06/16/19 20:12 06/16/19 20:12 06/16/19 22:01 06/16/19 22:01 06/16/19 22:01 06/16/19 21:51 Bedside ultrasound of the heart was performed to assess for pericardial effusion, right ventricular collapse these were absent. Patient was provided breathing treatments, Solu-Medrol. Cardiac work-up will be obtained. 06/16/19 23:39 06/16/19 23:39 Patient presents with a mild exacerbation of their baseline COPD. Mild wheezing at time of presentation but vitals do not show significant hypoxemia or tachypnea. No retractions. Patient did clinically improve after receiving nebulizers here in the emergency department. Chest x-ray without evidence of an acute pneumonia. Laboratories do not show acute kidney injury or significant leukocytosis. Patient able to ambulate without any respiratory distress. Based on patient's overall reassuring assessment, I believe they are stable for outpatient management with oral antibiotics. Patient has nebulizers at home. I do not suspect an acute alternative pathology at this time based on history and exam including acute pulmonary embolus, ACS, pneumothorax, or aortic dissection. At this time will discharge with return precautions and follow-up recommendations. Verbal discharge instructions given a the bedside and opportunity for questions given. Medication warnings reviewed. Patient is in agreement with this plan and has verbalized understanding of return precautions and the need for primary care follow-up in the next 24-72 hours. - Vital Signs Vital signs: Temp Pulse Resp BP Pulse Ox 98.8 F 101 H 20 143/72 H 100 06/17/19 00:34 06/16/19 20:12 06/16/19 22:01 06/16/19 22:01 06/16/19 22:01 - Laboratory Result Diagrams: 06/16/19 20:35 06/16/19 20:35 Laboratory results interpreted by me: 06/16/19 06/16/19 06/16/19 20:35 20:35 21:45 RDW 14.9 H D-Dimer 0.72 H Est GFR (MDRD) Non-Af 57 L Glucose 128 H AST 46 H Total Protein 8.4 H - Diagnostic Test Radiology reviewed: Image reviewed, Reports reviewed - EKG Interpretation by Me EKG shows normal: Sinus rhythm Rhythm: NSR Rew/QRS: RBBB When compared to previous EKG there are: No significant change Discharge - Discharge Clinical Impression: COPD exacerbation, Essential hypertension Condition: Good Disposition: HOME, SELF-CARE Instructions: Chronic Obstructive Lung Disease ([facility]) Additional Instructions: You were seen for a COPD exacerbation. Your symptoms improved with treatment here in the emergency department. However, it is very important that you return to the emergency department immediately if you began to have worsening difficulty breathing that does not respond to your normal home nebulizers. We will not prescribe steroids since she reports recently being taken off of steroids due to chronic use. Please also take the antibiotics as prescribed. Please also follow closely with your primary care physician. You should eturn to emergency department if you develop fever greater than 101, persistent cough, persistent vomiting, pass out, or any other symptoms that are concerning to you. Prescriptions: Doxycycline Hyclate 100 mg PO BID 7 Days #14 capsule Referrals: KHUSHI STRATTON MD [Primary Care Provider] - Follow up as needed
--- NOTE | 2019-06-16 21:51 | RADIOLOGY REPORT (SQ) ---
EXAM DESCRIPTION: XR CHEST 2 VIEWS COMPLETED DATE/TME: 06/16/2019 20:29 CLINICAL HISTORY: 68 years, Female, cough short of breath copd COMPARISON: 09/14/2018 chest NUMBER OF VIEWS: 2 TECHNIQUE: 2 view chest LIMITATIONS: None. FINDINGS: Heart size is normal. Elevation of left hemidiaphragm. Subsegmental atelectasis in each lung base. No pneumothorax. Blunting of the costophrenic angles consistent with tiny effusions and/or pleural thickening IMPRESSION: Stable elevation of the left hemidiaphragm. Bibasilar subsegmental atelectasis. Tiny bibasilar effusions and/or pleural thickening copyright 2010 [employer]- All Rights Reserved
[2019-06-16 21:57] LABS: VENOUS BLOOD BASE EXCESS -0.5 mmol/L; VENOUS BLOOD HCO3 25.7 mmol/L (20-32); VENOUS BLOOD PCO2 48.7 mmHg (35-63); VENOUS BLOOD PH 7.34 (7.30-7.42)
[2019-06-16 22:44] LABS: NT PRO BNP 44 pg/mL (5-900)
[2019-06-16 22:45] LABS: CREATINE KINASE MB < 0.22 ng/mL (<4.55); TROPONIN I < 0.012 ng/mL
[2019-06-16 22:51] VITALS: BP 143/72
--- NOTE | 2019-06-16 23:08 | RADIOLOGY REPORT (SQ) ---
EXAM DESCRIPTION: CT CHEST ANGIOGRAPHY WITHOUT THEN WITH IV CONTRAST COMPLETED DATE/TME: 06/16/2019 21:52 CLINICAL HISTORY: 68 years, Female, Sudden onset of dyspnea, history of DVT COMPARISON: Multiple priors, most recent from 10/17/2017. TECHNIQUE: CT of the chest was performed after the uneventful administration of intravenous contrast. Coronal and sagittal reformations were created. In addition, oblique MIPS were also acquired. Images stored on PACS. All CT scanners at this facility use dose modulation, iterative reconstruction, and/or weight based dosing when appropriate to reduce radiation dose to as low as reasonably achievable (ALARA). [facility]: Dose Right [facility]: CareDose [facility]: Dose Right [facility]: Teradose 4D [facility]: Smart [employer] LIMITATIONS: None. FINDINGS: Central airways are patent. Lung windows show bands of opacity about both lower lobes as well as the lingula, indicating areas of atelectasis or scar. Lungs are otherwise clear. Mediastinal windows show no suspicious hilar or mediastinal lymph node enlargement. Minimal calcifications are evident about the coronary vessels. Similar findings are evident about the thoracic aorta. The study is adequate for the evaluation of pulmonary emboli. No filling defects are identified to the proximal segmental level. Limited evaluation of the upper abdomen reveals a fluid density lesion located within the dome of the right hepatic lobe, likely a small simple hepatic cyst. No additional suspicious findings are evident within the imaged upper abdomen. Bone windows show no destructive osseous lesions. IMPRESSION: No evidence of pulmonary embolism other acute abnormality within the chest. TECHNICAL DOCUMENTATION: Quality ID # 436: Final reports with documentation of one or more dose reduction techniques (e.g., Automated exposure control, adjustment of the mA and/or kV according to patient size, use of iterative reconstruction technique) copyright 2011 [employer]- All Rights Reserved
--- NOTE | 2019-06-17 18:54 | EKG REPORT ---
SEVERITY:- ABNORMAL ECG - SINUS RHYTHM RIGHT BUNDLE BRANCH BLOCK : Confirmed by: Chente Bonilla 17-Jun-2019 18:52:47
== END 2019-06-16 23:20 | disposition home or self-care (01) ==
LOC: ER 20:07
DX: J44.1 Chronic obstructive pulmonary disease with (acute) exacerbation (principal); I10 Essential (primary) hypertension; I45.10 Unspecified right bundle-branch block; R06.02 Shortness of breath; R05 Cough; Z79.899 Other long term (current) drug therapy; Z87.891 Personal history of nicotine dependence
CPT/HCPCS: 93005; 94640; 99285; 36415; 82553; 82550; 85025; 80053; 84484; 85379; 82803; 83880; 71046; 71275; 93010; A9270; J7620

== ENCOUNTER → 2019-10-15 | Outpatient (CLI) | payer MEDICARE, MEDICAID ==
[2019-10-15 09:28] LABS: ABSOLUTE BASOPHILS # (AUTO) 0.1 10^3/uL (0.0-0.2); ABSOLUTE EOSINOPHILS # (AUTO) 0.1 10^3/uL (0.0-0.6); ABSOLUTE LYMPHOCYTES (AUTO) 2.5 10^3/uL (0.5-4.7); ABSOLUTE MONOCYTES (AUTO) 0.5 10^3/uL (0.1-1.4); BASOPHILS % (AUTO) 0.8 % (0-2); EOSINOPHILS % (AUTO) 1.3 % (0-6); HEMATOCRIT 39.8 % (36.0-47.0); HEMOGLOBIN 12.9 g/dL (12.0-15.5); LYMPHOCYTES % (AUTO) 35.1 % (13-45); MEAN CORPUSCULAR HEMOGLOBIN 28.2 pg (27.0-33.4); MEAN CORPUSCULAR HGB CONC 32.4 g/dL (32.0-36.0); MEAN CORPUSCULAR VOLUME 87 fl (80-97); MONOCYTES % (AUTO) 6.7 % (3-13); PLATELET COUNT 236 10^3/uL (150-450); RED BLOOD COUNT 4.57 10^6/uL (3.72-5.28); RED CELL DISTRIBUTION WIDTH 14.4 % (11.5-14.0); SEGMENTED NEUTROPHILS % (AUTO) 56.1 % (42-78); TOTAL CELLS COUNTED % (AUTO) 100 %; WHITE BLOOD COUNT 7.2 10^3/uL (4.0-10.5)
[2019-10-15 09:53] LABS: ALBUMIN 4.3 g/dL (3.5-5.0); ALKALINE PHOSPHATASE 71 U/L (38-126); ANION GAP 11 (5-19); ASPARTATE AMINO TRANSFERASE 30 U/L (14-36); BILIRUBIN,DIRECT 0.3 mg/dL (0.0-0.4); BILIRUBIN,TOTAL 0.4 mg/dL (0.2-1.3); BLOOD UREA NITROGEN 24 mg/dL (7-20); CALCIUM 9.5 mg/dL (8.4-10.2); CARBON DIOXIDE 27 mmol/L (22-30); CHLORIDE 100 mmol/L (98-107); CHOLESTEROL 169.54 mg/dL (0-200); GLUCOSE 111 mg/dL (75-110); POTASSIUM 4.1 mmol/L (3.6-5.0); TOTAL PROTEIN 8.4 g/dL (6.3-8.2); TRIGLYCERIDES 84 mg/dL (<150)
[2019-10-15 10:04] LABS: DIRECT LDL 81 mg/dL (<100)
== END ==
LOC: OD 08:34
PROVIDERS: ATTEND Family Medicine Geriatric Medicine
DX: E78.5 Hyperlipidemia, unspecified (principal); J44.9 Chronic obstructive pulmonary disease, unspecified; R73.9 Hyperglycemia, unspecified; Z79.899 Other long term (current) drug therapy
CPT/HCPCS: 36415; 80053; 80061; 83036; 85025

== ENCOUNTER → 2019-10-31 | Outpatient (CLI) | payer MEDICARE, MEDICAID ==
--- NOTE | 2019-10-31 08:34 | RADIOLOGY REPORT (SQ) ---
EXAM DESCRIPTION: CT HEAD WITHOUT COMPLETED DATE/TIME: 10/31/2019 8:20 am REASON FOR STUDY: (R42)DIZZINESS AND GIDDINESS R42 DIZZINESS AND GIDDINESS COMPARISON: 05/26/2014 TECHNIQUE: Axial images acquired through the brain without intravenous contrast. Images reviewed wi th bone, brain and subdural windows. Additional sagittal and coronal reconstructions were generated. Images stored on PACS. All CT scanners at this facility use dose modulation, iterative reconstruction, and/or weight based d osing when appropriate to reduce radiation dose to as low as reasonably achievable (ALARA). [facility]: Dose Right [facility]: CareDose [facility]: Dose Right [facility]: Teradose 4D [facility]: [employer] RADIATION DOSE: CT Rad equipment meets quality standard of care and radiation dose reduction techniq ues were employed. CTDIvol: 48.6 mGy. DLP: 856 mGy-cm. mGy. LIMITATIONS: None. FINDINGS: VENTRICLES: Normal size and contour. CEREBRUM: No masses. No hemorrhage. No midline shift. No evidence for acute infarction. Normal gra y/white matter differentiation. No areas of low density in the white matter. CEREBELLUM: No masses. No hemorrhage. No alteration of density. No evidence for acute infarction. EXTRAAXIAL SPACES: No fluid collections. No masses. ORBITS AND GLOBE: No intra- or extraconal masses. Normal contour of globe without masses. CALVARIUM: No fracture. PARANASAL SINUSES: No fluid or mucosal thickening. SOFT TISSUES: No mass or hematoma. OTHER: No other significant finding. IMPRESSION: NORMAL BRAIN CT WITHOUT CONTRAST. EVIDENCE OF ACUTE STROKE: NO. COMMENT: Quality ID # 436: Final reports with documentation of one or more dose reduction techniques (e.g., Automated exposure control, adjustment of the mA and/or kV according to patient size, use of iterative reconstruction technique) TECHNICAL DOCUMENTATION: JOB ID: [id number] [employer]- All Rights Reserved Reading location - IP/workstation name: [email or web address]
--- NOTE | 2019-10-31 09:32 | RADIOLOGY REPORT (SQ) ---
EXAM DESCRIPTION: CAROTID DOPPLER COMPLETED DATE/TIME: 10/31/2019 9:02 am REASON FOR STUDY: DIZZY R42 DIZZINESS AND GIDDINESS COMPARISON: None. TECHNIQUE: Grayscale ultrasound, Doppler velocity and spectra, and color Doppler images acquired of the extra-cranial carotid and vertebral arteries. Images stored on PACS. LIMITATIONS: None. FINDINGS: RIGHT CAROTID CCA Velocities: Within normal limits. ICA Velocities Peak systolic 77 cm/s. End diastolic 22 cm/s. Proximal ICA/CCA peak systolic ratio 0.9. Spectra normal. No significant plaque. LEFT CAROTID CCA Velocities: Within normal limits. ICA Velocities Peak systolic 87 cm/s. End diastolic 29 cm/s. Proximal ICA/CCA peak systolic ratio 0.8. Spectra normal. No significant plaque. VERTEBRAL ARTERIES: Antegrade flow. Normal waveforms. SUBCLAVIAN ARTERIES: No finding. OTHER: No other significant finding. IMPRESSION: NO HEMODYNAMICALLY SIGNIFICANT STENOSIS. COMMENT: Quality ID #195: Velocity criteria are extrapolated from the diameter data as defined by t he Society of Radiologists in Ultrasound Consensus Conference. Radiology 2003: 229; 340-346. TECHNICAL DOCUMENTATION: JOB ID: [id number] [email or web address]- All Rights Reserved Reading location - IP/workstation name: [email or web address]
== END ==
LOC: RAD 07:43
PROVIDERS: ATTEND Family Medicine Geriatric Medicine
DX: R42 Dizziness and giddiness (principal)
CPT/HCPCS: 70450; 93880

== ENCOUNTER → 2019-12-17 | Outpatient (CLI) | payer MEDICARE, MEDICAID ==
[2019-12-17 11:33] LABS: ANION GAP 14 (5-19); CALCIUM 9.8 mg/dL (8.4-10.2); CARBON DIOXIDE 27 mmol/L (22-30); CHLORIDE 99 mmol/L (98-107); GLUCOSE 107 mg/dL (75-110); POTASSIUM 4.1 mmol/L (3.6-5.0); URIC ACID 7.8 mg/dL (2.5-7.5)
[2019-12-17 11:34] LABS: BLOOD UREA NITROGEN 19 mg/dL (7-20)
--- NOTE | 2019-12-17 12:05 | RADIOLOGY REPORT (SQ) ---
EXAM DESCRIPTION: KNEE LEFT 4 VIEWS COMPLETED DATE/TIME: 12/17/2019 11:11 am REASON FOR STUDY: BILAT KNEE PAIN M25.569 PAIN IN UNSPECIFIED KNEE E11.9 TYPE 2 DIABETES MELLITUS WITHOUT COMPLICATIONS Z79.899 OTHER PENITENTIARY (CURRENT) DRUG THERAPY COMPARISON: None. NUMBER OF VIEWS: Four views. TECHNIQUE: AP, lateral, and both oblique radiographic images acquired of the left knee. LIMITATIONS: None. FINDINGS: MINERALIZATION: Decreased. BONES: No acute fracture or dislocation. No worrisome bone lesions. Tricompartment osteophytosis, g reatest medially. Associated subchondral sclerosis. There is moderate to severe joint space loss gr eatest within the medial compartment. JOINT: Small joint effusion. SOFT TISSUES: No soft tissue swelling. No radio-opaque foreign body. OTHER: No other significant finding. IMPRESSION: No evidence of acute bony abnormality. 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 TECHNICAL DOCUMENTATION: JOB ID: [id number] 2010 [employer]- All Rights Reserved Reading location - IP/workstation name: [email or web address]
--- NOTE | 2019-12-17 12:07 | RADIOLOGY REPORT (SQ) ---
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 TECHNIQUE: AP, lateral, and both oblique radiographic images acquired of the right knee. LIMITATIONS: None. FINDINGS: MINERALIZATION: Decreased. BONES: No fracture dislocation. No suspicious osseous lesions. Tricompartment osteophytosis, greate st medially. There is associated subchondral sclerosis and cystic change. Moderate to severe joint space loss, greatest medially. JOINT: No effusion. SOFT TISSUES: No soft tissue swelling. No radio-opaque foreign body. OTHER: No other significant finding. IMPRESSION: 1. No acute bony abnormality. 2. 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 TECHNICAL DOCUMENTATION: JOB ID: [id number] 2010 [employer]- All Rights Reserved Reading location - IP/workstation name: [email or web address]
[2019-12-18 12:36] LABS: CREATININE URINE 307.2 mg/dL (Not Estab.); MICROALBUMIN URINE 42.4 ug/mL (Not Estab.)
== END ==
LOC: OD 10:03
PROVIDERS: ATTEND Family Medicine Geriatric Medicine
DX: M17.0 Bilateral primary osteoarthritis of knee (principal); M25.561 Pain in right knee; M25.562 Pain in left knee; E11.9 Type 2 diabetes mellitus without complications; Z79.899 Other long term (current) drug therapy
CPT/HCPCS: 36415; 80048; 82043; 82570; 83036; 84550

== ENCOUNTER 2020-01-11 09:15 | Emergency (ER) | payer MEDICARE, MEDICAID ==
--- NOTE | 2020-01-11 09:26 | ER Document Report ---
ED Medical Screen (RME) - General Chief Complaint: Blood Pressure Problem Stated Complaint: BLOOD PRESSURE ISSUES Time Seen by Provider: 01/11/20 09:16 Primary Care Provider: KHUSHI CONNORS MD [Primary Care Provider] - Follow up as needed Mode of Arrival: Ambulatory Information source: Patient Notes: 69-year-old female with history of high blood pressure, COPD, diverticulitis presents to the emergency department with reports of high blood pressure. She reports she took her blood pressure this morning when she woke up. It was 163/105. Patient contacted her provider Dr. Connosr who told her to come to the emergency department. She reports she took 1 of her blood pressure medications, losartan 25 mg. Patient reports she did have a slight headache but it is gone now. She denies chest pain, denies abdominal pain. Denies fever vomiting diarrhea. Patient reports she is a little short of breath but that is chronic from her COPD. Nothing new. Patient reports she lives with her daughter. No recent trips. No known exposure to COVID-19. I have greeted and performed a rapid initial assessment of this patient. A comprehensive ED assessment and evaluation of the patient, analysis of test results and completion of the medical decision making process will be conducted by additional ED providers. TRAVEL OUTSIDE OF THE [place] IN LAST 30 DAYS: No - Related Data Allergies/Adverse Reactions: aspirin [Aspirin] Adverse Reaction (Intermediate, Verified 01/11/20 09:22) Nausea Past Medical History - Social History Chew tobacco use (# tins/day): No Frequency of alcohol use: None Drug Abuse: None - Past Medical History Cardiac Medical History: Reports: Hx DVT, Hx Hypertension Pulmonary Medical History: Reports: Hx COPD Renal/ Medical History: Denies: Hx Peritoneal Dialysis GI Medical History: Reports: Hx Hepatitis - HCV treated. Musculoskeltal Medical History: Reports Hx Arthritis - rheumatoid arthritis. Psychiatric Medical History: Denies: Hx Depression Infectious Medical History: Reports: Hx Hepatitis - HCV treated. Past Surgical History: Reports: Hx Gynecologic Surgery - D&C, Hx Hysterectomy, Hx Orthopedic Surgery - foot surgery , shoulder repair, Hx Tubal Ligation, Other - Immunizations Hx Diphtheria, Pertussis, Tetanus Vaccination: Yes Physical Exam - Vital signs Vitals: Temp Pulse Resp BP Pulse Ox 98.3 F 85 18 155/76 H 94 01/11/20 09:21 01/11/20 09:21 01/11/20 09:21 01/11/20 09:21 01/11/20 09:21 Course - Vital Signs Vital signs: Temp Pulse Resp BP Pulse Ox 98.3 F 85 18 155/76 H 94 01/11/20 09:21 01/11/20 09:21 01/11/20 09:21 01/11/20 09:21 01/11/20 09:21 Doctor's Discharge - Discharge Referrals: KHUSHI CONNORS MD [Primary Care Provider] - Follow up as needed
[2020-01-11 09:41] LABS: ABSOLUTE BASOPHILS # (AUTO) 0.1 10^3/uL (0.0-0.2); ABSOLUTE EOSINOPHILS # (AUTO) 0.1 10^3/uL (0.0-0.6); ABSOLUTE LYMPHOCYTES (AUTO) 1.9 10^3/uL (0.5-4.7); ABSOLUTE MONOCYTES (AUTO) 0.5 10^3/uL (0.1-1.4); ABSOLUTE NEUT (AUTO) 5.2 10^3/uL (1.7-8.2); BASOPHILS % (AUTO) 0.9 % (0-2); HEMATOCRIT 36.5 % (36.0-47.0); HEMOGLOBIN 12.1 g/dL (12.0-15.5); LYMPHOCYTES % (AUTO) 24.4 % (13-45); MEAN CORPUSCULAR HEMOGLOBIN 28.9 pg (27.0-33.4); MEAN CORPUSCULAR HGB CONC 33.2 g/dL (32.0-36.0); MEAN CORPUSCULAR VOLUME 87 fl (80-97); MONOCYTES % (AUTO) 6.9 % (3-13); PLATELET COUNT 197 10^3/uL (150-450); RED BLOOD COUNT 4.18 10^6/uL (3.72-5.28); RED CELL DISTRIBUTION WIDTH 14.9 % (11.5-14.0); SEGMENTED NEUTROPHILS % (AUTO) 66.8 % (42-78); TOTAL CELLS COUNTED % (AUTO) 100 %; WHITE BLOOD COUNT 7.9 10^3/uL (4.0-10.5)
--- NOTE | 2020-01-11 09:51 | ER Document Report ---
ED General - General Chief Complaint: Blood Pressure Problem Stated Complaint: BLOOD PRESSURE ISSUES Time Seen by Provider: 01/11/20 09:16 Primary Care Provider: KHUSHI STRATTON MD [Primary Care Provider] - Follow up as needed Mode of Arrival: Ambulatory Notes: Patient is a 69-year-old -[place] female with a past medical history of COPD and hypertension who presents to the emergency department with a chief complaint of frontal headache that began last night. She states before bed she was developing a gradual onset mild frontal headache bilaterally. She states she took 2 of her pain medications and went to sleep. When she woke this morning she noticed that she still had a headache so she took her blood pressure which she reports to be elevated. She states she has not yet taken her blood pressure medicines for the morning. She states she normally takes her blood pressure medicines around 930 or 10 AM. She states she had gotten up, was sitting in her chair drinking a cup of coffee prior to blood pressure evaluation. She states she called her primary care provider who advised she come here for further evaluation. She has since taken her losartan 25 mg. Of note her blood pressure has improved upon arrival here. She still complains of mild headache. Denies any dizziness, neck pain, numbness, tingling, focal weakness or visual disturbances. She denies any chest pain or shortness of breath. TRAVEL OUTSIDE OF THE [place] IN LAST 30 DAYS: No - Related Data Allergies/Adverse Reactions: aspirin [Aspirin] Adverse Reaction (Intermediate, Verified 01/11/20 09:22) Nausea Past Medical History - General Information source: Patient - Social History Smoking Status: Former Smoker Chew tobacco use (# tins/day): No Frequency of alcohol use: None Drug Abuse: None Family History: Reviewed & Not Pertinent Patient has suicidal ideation: No Patient has homicidal ideation: No - Past Medical History Cardiac Medical History: Reports: Hx DVT, Hx Hypertension Pulmonary Medical History: Reports: Hx COPD Renal/ Medical History: Denies: Hx Peritoneal Dialysis GI Medical History: Reports: Hx Hepatitis - HCV treated. Musculoskeletal Medical History: Reports Hx Arthritis - rheumatoid arthritis. Psychiatric Medical History: Denies: Hx Depression Infectious Medical History: Reports: Hx Hepatitis - HCV treated. Past Surgical History: Reports: Hx Gynecologic Surgery - D&C, Hx Hysterectomy, Hx Orthopedic Surgery - foot surgery , shoulder repair, Hx Tubal Ligation, Other - Immunizations Hx Diphtheria, Pertussis, Tetanus Vaccination: Yes Review of Systems - Review of Systems Neurological/Psychological: Headaches -: Yes All other systems reviewed and negative Physical Exam - Vital signs Vitals: Temp Pulse Resp BP Pulse Ox 98.3 F 85 18 155/76 H 94 01/11/20 09:21 01/11/20 09:21 01/11/20 09:21 01/11/20 09:21 01/11/20 09:21 - General General appearance: Appears well, Alert In distress: None - HEENT Head: Normocephalic, Atraumatic Eyes: Normal Conjunctiva: Normal Extraocular movements intact: Yes Eyelashes: Normal Pupils: PERRL Ears: Normal External canal: Normal Tympanic membrane: Normal Sinus: Normal Nasal: Normal Mouth/Lips: Normal Mucous membranes: Normal Pharynx: Normal Neck: Normal - Respiratory Respiratory status: No respiratory distress Chest status: Nontender Breath sounds: Normal Chest palpation: Normal - Cardiovascular Rhythm: Regular Heart sounds: Normal auscultation Murmur: Yes - Extremities General upper extremity: Normal inspection, Nontender, Normal color, Normal ROM, Normal temperature General lower extremity: Normal inspection, Nontender, Normal color, Normal ROM, Normal temperature, Normal weight bearing. 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 No: Pronator drift Sensory: Normal - Psychological Associated symptoms: Normal affect, Normal mood - Skin Skin Temperature: Warm Skin Moisture: Dry Skin Color: Normal Course - Re-evaluation Re-evalutation: 01/11/20 10:18 CT scan of the head negative for any acute process per radiologist. Lab work largely unremarkable. Patient's blood pressure is improved here. She has no focal deficits, neuro exam normal. She will call her primary care doctor today upon discharge for further counseling regarding her blood pressure and for medication management. Counseled her at length regarding the importance of outp atient follow-up and advised that she return here or any ER immediately with any new, persistent or worsening symptoms. She verbalized understood and agreed. - Vital Signs Vital signs: Temp Pulse Resp BP Pulse Ox 98.3 F 85 18 155/76 H 94 01/11/20 09:21 01/11/20 09:21 01/11/20 09:21 01/11/20 09:21 01/11/20 09:21 - Laboratory Result Diagrams: 01/11/20 09:30 01/11/20 09:30 Laboratory results interpreted by me: 01/11/20 01/11/20 09:30 09:30 RDW 14.9 H AST 37 H ALT 45 H Discharge - Discharge Clinical Impression: Uncontrolled hypertension Headache Qualifiers: Headache type: unspecified Headache chronicity pattern: unspecified pattern Intractability: not intractable Qualified Code(s): R51 - Headache Condition: Stable Disposition: HOME, SELF-CARE Instructions: Headache ([facility]), High Blood Pressure ([facility]) Additional Instructions: Follow-up with your regular doctor today for further counseling and medication management. Return here or any ER immediately with any new, persistent or worsening symptoms. Referrals: KHUSHI STRATTON MD [Primary Care Provider] - Follow up as needed
[2020-01-11 10:00] LABS: ALBUMIN 3.9 g/dL (3.5-5.0); ALKALINE PHOSPHATASE 73 U/L (38-126); ANION GAP 5 (5-19); ASPARTATE AMINO TRANSFERASE 37 U/L (14-36); BILIRUBIN,TOTAL 0.4 mg/dL (0.2-1.3); BLOOD UREA NITROGEN 12 mg/dL (7-20); CALCIUM 9.3 mg/dL (8.4-10.2); CARBON DIOXIDE 30 mmol/L (22-30); CHLORIDE 105 mmol/L (98-107); GLUCOSE 102 mg/dL (75-110); POTASSIUM 3.6 mmol/L (3.6-5.0); TOTAL PROTEIN 7.5 g/dL (6.3-8.2)
--- NOTE | 2020-01-11 10:11 | RADIOLOGY REPORT (SQ) ---
EXAM DESCRIPTION: CT HEAD WITHOUT IMAGES COMPLETED DATE/TIME: 01/11/2020 10:01 am REASON FOR STUDY: CHAHAL, HTN COMPARISON: 10/31/2019 TECHNIQUE: Axial images acquired through the brain without intravenous contrast. Images reviewed wi th bone, brain and subdural windows. Additional sagittal and coronal reconstructions were generated. Images stored on PACS. All CT scanners at this facility use dose modulation, iterative reconstruction, and/or weight based d osing when appropriate to reduce radiation dose to as low as reasonably achievable (ALARA). [facility]: Dose Right [facility]: CareDose [facility]: Dose Right [facility]: Teradose 4D [facility]: iPointer RADIATION DOSE: CT Rad equipment meets quality standard of care and radiation dose reduction techniq ues were employed. CTDIvol: 53.2 mGy. DLP: 964 mGy-cm. mGy. LIMITATIONS: None. FINDINGS: VENTRICLES: Normal size and contour. CEREBRUM: No masses. No hemorrhage. No midline shift. No evidence for acute infarction. Normal gra y/white matter differentiation. No areas of low density in the white matter. CEREBELLUM: No masses. No hemorrhage. No alteration of density. No evidence for acute infarction. EXTRAAXIAL SPACES: No fluid collections. No masses. ORBITS AND GLOBE: No intra- or extraconal masses. Normal contour of globe without masses. CALVARIUM: No fracture. PARANASAL SINUSES: No fluid or mucosal thickening. SOFT TISSUES: No mass or hematoma. OTHER: No other significant finding. IMPRESSION: NO ACUTE INTRACRANIAL IMAGING FINDINGS. EVIDENCE OF ACUTE STROKE: NO. COMMENT: Quality ID # [id number]: Final reports with documentation of one or more dose reduction techniques (e.g., Automated exposure control, adjustment of the mA and/or kV according to patient size, use of iterative reconstruction technique) TECHNICAL DOCUMENTATION: JOB ID: [id number] 2010 [employer]- All Rights Reserved Reading location - IP/workstation name: [email or web address]
[2020-01-11 10:23] VITALS: BP 179/72
== END 2020-01-11 10:29 | disposition home or self-care (01) ==
LOC: ER 09:15
DX: I10 Essential (primary) hypertension (principal); R51 Headache; J44.9 Chronic obstructive pulmonary disease, unspecified; Z86.718 Personal history of other venous thrombosis and embolism; Z86.19 Personal history of other infectious and parasitic diseases; Z90.710 Acquired absence of both cervix and uterus
CPT/HCPCS: 36415; 70450; 80053; 85025; 99284

== ENCOUNTER 2020-02-08 13:32 | Emergency (ER) | payer MEDICARE, MEDICAID ==
[2020-02-08] MEDS ORDERED: CLONIDINE HCL 0.1 MG TABLET PO ONE (14:19)
[2020-02-08] MEDS ORDERED: ONDANSETRON HCL INJ/PF 4 MG/2 ML SDV IV ONE (14:19)
[2020-02-08] MEDS ORDERED: MORPHINE SULFATE 10 MG/ML INJ IV ONE (14:19)
[2020-02-08 14:24] LABS: ABSOLUTE BASOPHILS # (AUTO) 0.1 10^3/uL (0.0-0.2); ABSOLUTE EOSINOPHILS # (AUTO) 0.1 10^3/uL (0.0-0.6); ABSOLUTE LYMPHOCYTES (AUTO) 2.2 10^3/uL (0.5-4.7); ABSOLUTE MONOCYTES (AUTO) 0.4 10^3/uL (0.1-1.4); ABSOLUTE NEUT (AUTO) 3.7 10^3/uL (1.7-8.2); BASOPHILS % (AUTO) 0.8 % (0-2); EOSINOPHILS % (AUTO) 1.1 % (0-6); HEMATOCRIT 38.4 % (36.0-47.0); HEMOGLOBIN 12.7 g/dL (12.0-15.5); LYMPHOCYTES % (AUTO) 34.5 % (13-45); MEAN CORPUSCULAR HEMOGLOBIN 28.6 pg (27.0-33.4); MEAN CORPUSCULAR VOLUME 87 fl (80-97); MONOCYTES % (AUTO) 6.9 % (3-13); PLATELET COUNT 217 10^3/uL (150-450); RED BLOOD COUNT 4.43 10^6/uL (3.72-5.28); RED CELL DISTRIBUTION WIDTH 14.1 % (11.5-14.0); SEGMENTED NEUTROPHILS % (AUTO) 56.7 % (42-78); TOTAL CELLS COUNTED % (AUTO) 100 %; WHITE BLOOD COUNT 6.5 10^3/uL (4.0-10.5)
--- NOTE | 2020-02-08 14:25 | ER Document Report ---
ED General - General Chief Complaint: High Blood Pressure Stated Complaint: BLOOD PRESSURE ISSUES Time Seen by Provider: 02/08/20 14:01 Primary Care Provider: KHUSHI STRATTON MD [Primary Care Provider] - Follow up as needed TRAVEL OUTSIDE OF THE [place] IN LAST 30 DAYS: No - HPI Notes: Patient is a 69-year-old female who presents emergency department for evaluation of a headache and elevated blood pressure. She states that about 2 weeks ago her physician took her off of hydrochlorothiazide, started her on losartan, then increase the dosage. She states over the last week she has had a headache. It was not sudden in nature. Is been gradual in onset, but it seems to be the worst today. She states her pain is in her temples and behind her eyes. Nothing seems to make it better or worse. She took her blood pressure at home and noted it to be markedly elevated, so she presents here to the emergency department for further evaluation. She denies any difficulty seeing, speaking, swallowing. She is moving her arms and legs without difficulty, states that she is at her baseline with some arthritic pain but otherwise no weakness. - Related Data Allergies/Adverse Reactions: aspirin [Aspirin] Adverse Reaction (Intermediate, Verified 01/11/20 09:22) Nausea Past Medical History - General Information source: Patient - Social History Smoking Status: Former Smoker Family History: Reviewed & Not Pertinent Patient has homicidal ideation: No - Past Medical History Cardiac Medical History: Reports: Hx DVT, Hx Hypertension Pulmonary Medical History: Reports: Hx COPD Renal/ Medical History: Denies: Hx Peritoneal Dialysis GI Medical History: Reports: Hx Hepatitis - HCV treated. Musculoskeletal Medical History: Reports Hx Arthritis - rheumatoid arthritis. Psychiatric Medical History: Denies: Hx Depression Infectious Medical History: Reports: Hx Hepatitis - HCV treated. Past Surgical History: Reports: Hx Gynecologic Surgery - D&C, Hx Hysterectomy, H x Orthopedic Surgery - foot surgery , shoulder repair, Hx Tubal Ligation, Other - Immunizations Hx Diphtheria, Pertussis, Tetanus Vaccination: Yes Review of Systems - Review of Systems Constitutional: See HPI Neurological/Psychological: See HPI Physical Exam - Vital signs Vitals: Temp Pulse Resp BP Pulse Ox 98.0 F 99 20 224/108 H 94 02/08/20 13:37 02/08/20 13:37 02/08/20 13:37 02/08/20 13:37 02/08/20 13:37 - Notes Notes: Vital signs reviewed, please refer to chart. Head is normocephalic, atraumatic. Pupils equal round, reactive to light. Neck is supple without meningismus. Heart is regular rate and rhythm. Lungs are clear to auscultation bilaterally. Abdomen is soft, nontender, normoactive bowel sounds throughout. Extremities without cyanosis, clubbing. Posterior calves are nontender. Peripheral pulses are equal. Skin is warm and dry. Patient is awake, alert, oriented x3. Cranial nerves II - XII are grossly intact without focal neurological deficits. Strength is plus 5 out of 5 bilateral upper and lower extremities. Sensation is intact. Reflexes symmetrical. Intact [id number], rapid alternating movements, [id number]. Course - Re-evaluation Re-evalutation: 02/08/20 14:24 Patient presents emergency department for evaluation of a headache. Is not the worst headache of her life. It was not sudden in onset. Her blood pressure is markedly elevated, but she had a recent change in her blood pressure medications. She states she was well-controlled with hydrochlorothiazide, but it was changed because her primary care physician believed it was worsening her uric acid. Patient states that she believes this is all secondary to the losartan. She is given pain medicine, nausea medicine, 1 dose of clonidine. I am not concerned about acutely lowering her blood pressure too much, the patient states that normally her blood pressures in the 120 range systolic. At this point she is stable, we will continue to monitor. 02/08/20 16:54 Patient still remained hypertensive, her headache only improved minimally. She was further given labetalol and her headache entirely resolved. Repeat neurological exam is unremarkable. We talked at length, it was decided that the patient was controlled well on hydrochlorothiazide, this was a reasonable option. Patient states that she wants to discontinue the losartan, and I believe that is reasonable as well. She is to follow-up closely with her primary care provider on Tuesday, return to the ER with worsening or new concerning symptoms of any sort. - Vital Signs Vital signs: Temp Pulse Resp BP Pulse Ox 98.0 F 99 17 183/81 H 95 02/08/20 13:55 02/08/20 13:37 02/08/20 16:17 02/08/20 16:17 02/08/20 16:17 - Laboratory Result Diagrams: 02/08/20 14:05 02/08/20 14:05 Laboratory results interpreted by me: 02/08/20 02/08/20 14:05 14:05 RDW 14.1 H Carbon Dioxide 31 H - EKG Interpretation by Me Additional EKG results interpreted by me: 02/08/20 14:24 Sinus mechanism with rate of 82 bpm. Right bundle branch block. Normal axis. No change from prior study when compared to June 16, 2019. Discharge - Discharge Clinical Impression: Essential hypertension Headache Qualifiers: Headache chronicity pattern: acute headache Intractability: not intractable Condition: Stable Disposition: HOME, SELF-CARE Instructions: High Blood Pressure, Requiring Treatment ([facility]), Hydrochlorothiazide ([facility]) Additional Instructions: Stop the losartan, restart your hydrochlorothiazide. Follow-up with your primary care provider on Tuesday, discussed these changes, and whether any further evaluation is necessary. Please return to the emergency department if you develop worsening or new concerning symptoms of any sort. Prescriptions: Hydrochlorothiazide [Hydrodiuril 25 mg Tablet] 25 mg PO DAILY #14 tab Referrals: KHUSHI STRATTON MD [Primary Care Provider] - Follow up as needed
--- NOTE | 2020-02-08 14:29 | EKG REPORT ---
SEVERITY:- ABNORMAL ECG - SINUS RHYTHM RIGHT BUNDLE BRANCH BLOCK : Confirmed by: Lien Rueda MD 08-Feb-2020 14:27:59
[2020-02-08 14:47] LABS: ALBUMIN 4.1 g/dL (3.5-5.0); ALKALINE PHOSPHATASE 77 U/L (38-126); ANION GAP 7 (5-19); ASPARTATE AMINO TRANSFERASE 25 U/L (14-36); BILIRUBIN,DIRECT 0.1 mg/dL (0.0-0.4); BILIRUBIN,TOTAL 0.5 mg/dL (0.2-1.3); BLOOD UREA NITROGEN 14 mg/dL (7-20); CALCIUM 9.1 mg/dL (8.4-10.2); CARBON DIOXIDE 31 mmol/L (22-30); CHLORIDE 101 mmol/L (98-107); CREATINE KINASE 41 U/L (30-135); GLUCOSE 92 mg/dL (75-110); POTASSIUM 3.7 mmol/L (3.6-5.0); TOTAL PROTEIN 7.8 g/dL (6.3-8.2)
[2020-02-08 15:01] LABS: CREATINE KINASE MB < 0.22 ng/mL (<4.55); TROPONIN I < 0.012 ng/mL
[2020-02-08] MEDS ORDERED: LABETALOL HCL INJ 20 MG/4 ML DISP.SYRIN IV ONE (15:07)
[2020-02-08 17:08] VITALS: BP 175/72
== END 2020-02-08 17:26 | disposition home or self-care (01) ==
LOC: ER 13:32
DX: I10 Essential (primary) hypertension (principal); R51 Headache; Z79.899 Other long term (current) drug therapy; Z88.8 Allergy status to other drugs, medicaments and biological substances; Z87.891 Personal history of nicotine dependence; J44.9 Chronic obstructive pulmonary disease, unspecified
CPT/HCPCS: 93005; 99283; 96374; 96375; 36415; 82553; 82550; 85025; 80053; 84484; 93010; A9270; J3490; J2270; J2405

== ENCOUNTER → 2020-03-07 | Outpatient (CLI) | payer MEDICARE, MEDICAID ==
[2020-03-07 14:46] LABS: ANION GAP 7 (5-19); BLOOD UREA NITROGEN 12 mg/dL (7-20); CARBON DIOXIDE 30 mmol/L (22-30); CHLORIDE 104 mmol/L (98-107); GLUCOSE 101 mg/dL (75-110); POTASSIUM 3.9 mmol/L (3.6-5.0); URIC ACID 4.1 mg/dL (2.5-7.5)
== END ==
LOC: OD 13:16
PROVIDERS: ATTEND Family Medicine Geriatric Medicine
DX: M10.9 Gout, unspecified (principal); I10 Essential (primary) hypertension; E55.9 Vitamin D deficiency, unspecified; Z79.899 Other long term (current) drug therapy
CPT/HCPCS: 36415; 80048; 82306; 84550

== ENCOUNTER 2020-03-23 17:01 | Emergency (ER) | payer MEDICARE, MEDICAID ==
--- NOTE | 2020-03-23 17:31 | ER Document Report ---
ED Medical Screen (RME) - General Chief Complaint: Chest Pain Stated Complaint: CHEST PAIN Time Seen by Provider: 03/23/20 17:27 Primary Care Provider: KHUSHI STRATTON MD [Primary Care Provider] - Follow up as needed Mode of Arrival: Wheelchair Information source: Patient Notes: 69-year-old female presented to ED for complaint of chest pain to the left side of her chest. She states she had similar pain last week and it moved around a couple times and then got better. She states she did not come in and get it evaluated but her pain is much worse today than it was last week so she says she better come in to get it evaluated this time. She is alert oriented respirations regular and unlabored speaking in full sentences. She states she does have COPD so she is a chronic short of breath. She states she was nauseated a couple days ago but she is not nauseated at this time. She states she is allergic to aspirin so she cannot take aspirin. I have greeted and performed a rapid initial assessment of this patient. A comprehensive ED assessment and evaluation of the patient, analysis of test results and completion of medical decision making process will be conducted by an additional ED providers. TRAVEL OUTSIDE OF THE [place] IN LAST 30 DAYS: No - Related Data Allergies/Adverse Reactions: aspirin [Aspirin] Adverse Reaction (Intermediate, Verified 03/23/20 17:26) Nausea Past Medical History - Social History Chew tobacco use (# tins/day): No Frequency of alcohol use: None Drug Abuse: None - Past Medical History Cardiac Medical History: Reports: Hx DVT, Hx Hypertension Pulmonary Medical History: Reports: Hx COPD Renal/ Medical History: Denies: Hx Peritoneal Dialysis GI Medical History: Reports: Hx Hepatitis - HCV treated. Musculoskeltal Medical History: Reports Hx Arthritis - rheumatoid arthritis. Psychiatric Medical History: Denies: Hx Depression Infectious Medical History: Reports: Hx Hepatitis - HCV treated. Past Surgical History: Reports: Hx Gynecologic Surgery - D&C, Hx Hysterectomy, Hx Orthopedic Surgery - foot surgery , shoulder repair, Hx Tubal Ligation, Other - Immunizations Hx Diphtheria, Pertussis, Tetanus Vaccination: Yes Physical Exam - Vital signs Vitals: Temp Pulse Resp BP Pulse Ox 99.4 F 103 H 22 H 161/75 H 90 L 03/23/20 17:18 03/23/20 17:18 03/23/20 17:18 03/23/20 17:18 03/23/20 17:18 Course - Vital Signs Vital signs: Temp Pulse Resp BP Pulse Ox 99.4 F 103 H 22 H 161/75 H 90 L 03/23/20 17:27 03/23/20 17:18 03/23/20 17:18 03/23/20 17:18 03/23/20 17:18 Doctor's Discharge - Discharge Referrals: KHUSHI STRATTON MD [Primary Care Provider] - Follow up as needed
--- NOTE | 2020-03-23 18:03 | RADIOLOGY REPORT (SQ) ---
EXAM DESCRIPTION: CHEST 2 VIEWS IMAGES COMPLETED DATE/TIME: 03/23/2020 5:50 pm REASON FOR STUDY: chest pain COMPARISON: 06/16/2019 TECHNIQUE: Frontal and lateral radiographic views of the chest acquired. NUMBER OF VIEWS: Two view. LIMITATIONS: None. FINDINGS: LUNGS AND PLEURA: No pneumothorax. No consolidation or pleural effusion. Similar bibasila r scarring. MEDIASTINUM AND HILAR STRUCTURES: Stable. HEART AND VASCULAR STRUCTURES: Stable. BONES: No acute findings. HARDWARE: None in the chest. OTHER: No other significant finding. IMPRESSION: NO ACUTE FINDINGS. TECHNICAL DOCUMENTATION: JOB ID: [id number] 2010 [employer]- All Rights Reserved Reading location - IP/workstation name: [email or web address]
[2020-03-23 18:13] LABS: ABSOLUTE EOSINOPHILS # (AUTO) 0.1 10^3/uL (0.0-0.6); ABSOLUTE LYMPHOCYTES (AUTO) 1.6 10^3/uL (0.5-4.7); ABSOLUTE MONOCYTES (AUTO) 0.3 10^3/uL (0.1-1.4); ABSOLUTE NEUT (AUTO) 2.8 10^3/uL (1.7-8.2); BASOPHILS % (AUTO) 0.7 % (0-2); EOSINOPHILS % (AUTO) 1.2 % (0-6); HEMATOCRIT 38.3 % (36.0-47.0); HEMOGLOBIN 12.5 g/dL (12.0-15.5); MEAN CORPUSCULAR HEMOGLOBIN 27.5 pg (27.0-33.4); MEAN CORPUSCULAR HGB CONC 32.6 g/dL (32.0-36.0); MEAN CORPUSCULAR VOLUME 84 fl (80-97); MONOCYTES % (AUTO) 5.3 % (3-13); PLATELET COUNT 288 10^3/uL (150-450); RED BLOOD COUNT 4.55 10^6/uL (3.72-5.28); RED CELL DISTRIBUTION WIDTH 13.8 % (11.5-14.0); SEGMENTED NEUTROPHILS % (AUTO) 58.8 % (42-78); TOTAL CELLS COUNTED % (AUTO) 100 %; WHITE BLOOD COUNT 4.8 10^3/uL (4.0-10.5)
[2020-03-23 18:30] LABS: ALBUMIN 4.1 g/dL (3.5-5.0); ALKALINE PHOSPHATASE 81 U/L (38-126); ANION GAP 11 (5-19); ASPARTATE AMINO TRANSFERASE 28 U/L (14-36); BILIRUBIN,TOTAL 0.5 mg/dL (0.2-1.3); BLOOD UREA NITROGEN 14 mg/dL (7-20); CALCIUM 9.4 mg/dL (8.4-10.2); CARBON DIOXIDE 31 mmol/L (22-30); CHLORIDE 93 mmol/L (98-107); GLUCOSE 132 mg/dL (75-110); POTASSIUM 3.8 mmol/L (3.6-5.0); TOTAL PROTEIN 8.2 g/dL (6.3-8.2)
[2020-03-23 18:42] LABS: NT PRO BNP 68 pg/mL (<125)
[2020-03-23 18:43] LABS: TROPONIN I < 0.012 ng/mL
[2020-03-23] MEDS ORDERED: MORPHINE SULFATE 10 MG/ML INJ IV ONE (19:54)
[2020-03-23] MEDS ORDERED: ONDANSETRON HCL INJ/PF 4 MG/2 ML SDV IV ONE (19:54)
[2020-03-23] MEDS ORDERED: LABETALOL HCL INJ 20 MG/4 ML DISP.SYRIN IV ONE (20:02)
[2020-03-23 21:04] LABS: INTERNATIONAL RATION (INR) 1.02; PARTIAL THROMBOPLASTIN TIME 27.1 SEC (23.5-35.8); PROTHROMBIN TIME 13.4 SEC (11.4-15.4)
--- NOTE | 2020-03-23 21:55 | RADIOLOGY REPORT (SQ) ---
EXAM DESCRIPTION: CT CHEST ANGIOGRAPHY WITHOUT THEN WITH IV CONTRAST with three-dimensional reconstructions COMPLETED DATE/TME: 03/23/2020 19:55 CLINICAL HISTORY: 69 years, Female, pleuritic chest pain, tachy, h/o dvt This exam was performed according to our departmental dose-optimization program which includes automated exposure control, adjustment of the mA and/or kVp according to patient size and/or use of iterative reconstruction technique where applicable. FINDINGS: Aorta is mildly calcified without aneurysm. The pulmonary arteries are well opacified with no significant filling defects in the pulmonary arterial tree to suggest acute pulmonary embolism. No significant mediastinal, hilar or axillary lymphadenopathy. No significant pericardial effusion. Small layering bilateral pleural effusions with bibasilar atelectatic changes. Visualized upper abdominal organs are within normal limits. Evaluation of the lung parenchyma demonstrates trachea and major airways to be patent. No suspicious lung nodules or masses. Bibasilar atelectatic changes. No consolidations to suggest pneumonia. IMPRESSION: No acute pulmonary embolism. Small bilateral pleural effusions with bibasilar atelectatic changes.
--- NOTE | 2020-03-23 22:42 | EKG REPORT ---
SEVERITY:- ABNORMAL ECG - SINUS TACHYCARDIA RIGHT BUNDLE BRANCH BLOCK : Confirmed by: Lien Rueda MD 23-Mar-2020 22:42:03
--- NOTE | 2020-03-23 23:47 | ER Document Report ---
Entered by LEÓN PILLAI SCRIBE 03/23/202035 Acting as scribe for:DANIEL BRAY IV, MD ED General - General Chief Complaint: Chest Pain Stated Complaint: CHEST PAIN Time Seen by Provider: 03/23/20 17:27 Primary Care Provider: KHUSHI STRATTON MD [Primary Care Provider] - Follow up as needed Mode of Arrival: Wheelchair Information source: Patient Notes: This 69 year old female patient with a history of HTN, DVT, and COPD presents to the ED today with complaints of intermittent left-sided chest pain for the past x1 week, worse today. Patient states that the pain is worse with deep breaths. She reports that she hasn't had any issues with DVTs for a couple of years, so she hasn't been taking any anti-coagulants. TRAVEL OUTSIDE OF THE [place] IN LAST 30 DAYS: No - Related Data Allergies/Adverse Reactions: aspirin [Aspirin] Adverse Reaction (Intermediate, Verified 03/23/20 17:26) Nausea Past Medical History - General Information source: Patient, [facility] Records - Social History Smoking Status: Never Smoker Cigarette use (# per day): No Chew tobacco use (# tins/day): No Smoking Education Provided: No Frequency of alcohol use: None Drug Abuse: None Family History: Reviewed & Not Pertinent Patient has suicidal ideation: No Patient has homicidal ideation: No - Past Medical History Cardiac Medical History: Reports: Hx DVT, Hx Hypertension Pulmonary Medical History: Reports: Hx COPD GI Medical History: Reports: Hx Hepatitis - HCV treated. Musculoskeletal Medical History: Reports Hx Arthritis - rheumatoid arthritis. Infectious Medical History: Reports: Hx Hepatitis - HCV treated. Past Surgical History: Reports: Hx Dilation and Curettage, Hx Hysterectomy, Hx Orthopedic Surgery - foot surgery , shoulder repair, Hx Tubal Ligation - Immunizations Hx Diphtheria, Pertussis, Tetanus Vaccination: Yes Review of Systems - Review of Systems Constitutional: No symptoms reported EENT: No symptoms reported Cardiovascular: See HPI, Chest pain Respiratory: See HPI, Short of breath Gastrointestinal: No symptoms reported Genitourinary: No symptoms reported Female Genitourinary: No symptoms reported Musculoskeletal: No symptoms reported Skin: No symptoms reported Hematologic/Lymphatic: No symptoms reported Neurological/Psychological: No symptoms reported -: Yes All other systems reviewed and negative Physical Exam - Vital signs Vitals: Temp Pulse Resp BP Pulse Ox 99.4 F 103 H 22 H 161/75 H 90 L 03/23/20 17:18 03/23/20 17:18 03/23/20 17:18 03/23/20 17:18 03/23/20 17:18 - General General appearance: Alert In distress: None - HEENT Head: Normocephalic, Atraumatic Eyes: Normal Pupils: PERRL - Respiratory Respiratory status: No respiratory distress Chest status: Nontender Breath sounds: Normal Chest palpation: Normal - Cardiovascular Rhythm: Regular Heart sounds: Normal auscultation Murmur: No Friction rub: No Gallop: None auscultated - Abdominal Inspection: Normal Distension: No distension Bowel sounds: Normal Tenderness: Nontender - Abdomen soft Organomegaly: No organomegaly - Back Back: Normal, Nontender - Extremities General upper extremity: Normal inspection Ankle: Edema - Non-pitting edema to ankles bilaterally - Neurological Neuro grossly intact: Yes Orientation: AAOx4 - Psychological Associated symptoms: Normal affect, Normal mood - Skin Skin Temperature: Warm Skin Moisture: Dry Skin Color: Normal Course - Re-evaluation Re-evalutation: 03/24/20 00:09 Patient states she is feeling much better at this time. Results of the ED MSE discussed with patient. All questions were answered prior to discharge. Emergency signs and symptoms, reasons to return to the emergency department discussed with patient. - Vital Signs Vital signs: Temp Pulse Resp BP Pulse Ox 99.4 F 103 H 20 160/83 H 97 03/23/20 17:27 03/23/20 17:18 03/23/20 20:01 03/23/20 20:00 03/23/20 20:01 - Laboratory Result Diagrams: 03/23/20 17:55 03/23/20 17:55 Laboratory results interpreted by me: 03/23/20 17:55 Sodium 135.2 L Chloride 93 L Carbon Dioxide 31 H Glucose 132 H - Diagnostic Test Radiology reviewed: Reports reviewed - EKG Interpretation by Me Additional EKG results interpreted by me: 03/24/20 00:10 EKG obtained on 03/23/2020 at 1712 hrs. was interpreted by this MD. Findings: Sinus tachycardia, heart rate 103, normal axis, P waves preceding QRS complexes, right bundle branch block is present, there are no obvious patterns of ST segment elevation or depression present to suggest acute myocardial ischemia or infarction. Impression: Sinus tachycardia with right bundle branch block and nonspecific ST segments. Discharge - Discharge Clinical Impression: Pleuritic chest pain, Elevated blood pressure reading Condition: Good Disposition: HOME, SELF-CARE Additional Instructions: Return to the Emergency Department without delay if any worse. HOME CARE INSTRUCTIONS & INFORMATION: Thank you for choosing us for your medical needs. We hope you're satisfied with the care you received. After you leave, you must properly care for your problem and, at the same time, observe its progress. Any condition can change. Some illnesses can change rapidly over hours or days. If your condition worsens, return to the Emergency Department or see your physician promptly. ABOUT YOUR X-RAYS AND EKG'S: If you had an EKG or X-rays taken, they have been read by the Emergency Physician. The X-rays and EKG's will also be read by a Ra diologist or Systems Spec within 24 hours. If discrepancies are noted, you will be notified by telephone. Please be certain the ED has a correct telephone number & address where you can be reached. Also, realize that some fractures or abnormalities do not show up on initial X-rays. If your symptoms continue, see your physician. ABOUT YOUR LABORATORY TEST: If you had laboratory tests, the results have been reviewed by the Emergency Physician. Some test results (for example cultures) may not be available for several days. You will be contacted if any test result shows you need additional treatment. Please be certain the ED has a correct telephone number and address where you can be reached. ABOUT YOUR MEDICATIONS: You will receive instructions on how to take your medicine on the prescription label you receive. Additional information may be provided by the Pharmacy. If you have questions afterwards, call the ED for clarification or further instructions. Some prescribed medications may cause drowsiness. Do not perform tasks such as driving a car or operating machinery without consulting your Pharmacist. If you feel you need a refill of pain medication, your condition will need re-evaluation. Please do not call for a refill of any medication. ABOUT YOUR SIGNATURE: Signature of this document acknowledges to followin. Understanding that you received emergency treatment and that you may be released before al medical problems are known or treated. Please be certain the ED has a correct phone number & address where you can be reached. 2. Acknowledgement that you will arrange for follow-up care as recommended. 3. Authorization for the Emergency Physician to provide information to your follow-up Physician in order to maximize your care. AT ANY TIME, IF YOUR SYMPTOMS CHANGE SIGNIFICANTLY OR WORSEN OR YOU DEVELOP NEW SYMPTOMS, RETURN TO THE EMERGENCY DEPARTMENT IMMEDIATELY FOR RE-EVALUATION. OUR GOAL IS TO PROVIDE EXCELLENT MEDICAL CARE! WE HOPE THAT WE HAVE MET YOUR EXPECTATIONS DURING YOUR EMERGENCY DEPARTMENT VISIT AND THAT YOU FEEL YOU HAVE RECEIVED EXCELLENT CARE! Pleurisy Your chest pain has been diagnosed as pleuritis (pleurisy). This is an inflammation of the surface of the lung tissue. It can be caused by a virus or, occasionally, old scar tissue. It is painful but, for the most part, not a serious problem. This pain is usually made worse by deep breathing, coughing, or sudden movements of the upper body or arms. The treatment is relief of symptoms. It includes rest, antiinflammatory medication, and pain medicine. Resolution of the pain is usually rapid once antiinflammatory medication is started. Warning signs of a more serious problem include: a fever, shortness of breath, pain that radiates to your jaw, shoulders or arms, or coughing up bloody sputum. If any of these symptoms occur, call the physician at once. Referrals: KHUSHI STRATTON MD [Primary Care Provider] - 03/24/20 I personally performed the services described in the documentation, reviewed and edited the documentation which was dictated to the scribe in my presence, and it accurately records my words and actions.
[2020-03-24] MEDS ORDERED: HYDROCODONE/ACETAMINOPHEN 5-325 MG (6 TAB/ER DISP) PO PRN (00:08)
[2020-03-24 00:39] VITALS: BP 151/84
== END 2020-03-24 00:47 | disposition home or self-care (01) ==
LOC: ER 17:01
DX: R07.81 Pleurodynia (principal); I10 Essential (primary) hypertension; J44.9 Chronic obstructive pulmonary disease, unspecified; J90 Pleural effusion, not elsewhere classified; R06.02 Shortness of breath; R60.0 Localized edema; R00.0 Tachycardia, unspecified; I45.10 Unspecified right bundle-branch block; Z86.718 Personal history of other venous thrombosis and embolism
CPT/HCPCS: 93005; 99285; 96374; 96375; 36415; 83735; 84443; 85025; 85610; 85730; 80053; 84484; 83880; 71046; 71275; 93010; J3490; J2270; J2405; A9270

== ENCOUNTER → 2020-04-18 | Outpatient (CLI) | payer MEDICARE, MEDICAID ==
[2020-04-18 10:55] LABS: ANION GAP 9 (5-19); BLOOD UREA NITROGEN 20 mg/dL (7-20); CALCIUM 9.6 mg/dL (8.4-10.2); CARBON DIOXIDE 27 mmol/L (22-30); CHLORIDE 100 mmol/L (98-107); CHOLESTEROL 140.03 mg/dL (0-200); GLUCOSE 115 mg/dL (75-110); POTASSIUM 4.8 mmol/L (3.6-5.0); TRIGLYCERIDES 76 mg/dL (<150)
[2020-04-18 11:05] LABS: DIRECT LDL 64 mg/dL (<100)
[2020-04-19 13:37] LABS: CREATININE URINE 250.1 mg/dL (Not Estab.); MICROALBUMIN URINE 26.2 ug/mL (Not Estab.)
== END ==
LOC: OD 08:55
PROVIDERS: ATTEND Family Medicine Geriatric Medicine
DX: E11.9 Type 2 diabetes mellitus without complications (principal); E78.5 Hyperlipidemia, unspecified; I10 Essential (primary) hypertension; Z79.899 Other long term (current) drug therapy
CPT/HCPCS: 36415; 80048; 80061; 82043; 82570; 83036; 84460

== ENCOUNTER → 2020-06-23 | Outpatient (CLI) | payer MEDICARE, OTHER, MEDICAID ==
[2020-06-23 10:27] LABS: ANION GAP 11 (5-19); BLOOD UREA NITROGEN 11 mg/dL (7-20); CALCIUM 9.4 mg/dL (8.4-10.2); CARBON DIOXIDE 29 mmol/L (22-30); CHLORIDE 102 mmol/L (98-107); GLUCOSE 108 mg/dL (75-110); POTASSIUM 3.7 mmol/L (3.6-5.0)
== END ==
LOC: OD 09:07
PROVIDERS: ATTEND Family Medicine Geriatric Medicine
DX: E87.1 Hypo-osmolality and hyponatremia (principal); Z79.899 Other long term (current) drug therapy
CPT/HCPCS: 36415; 80048

== ENCOUNTER 2020-10-23 07:15 | Day surgery (SDC) | payer MEDICARE, OTHER, MEDICAID ==
[~2020-10-23 07:15] MED LIST changes: -ALBUTEROL SULFATE 0.083% NEB 2.5 MG/3 ML AMPUL NEB ONE; +DORZOLAMIDE HCL 2%/TIMOLOL MALEAT 0.5% OPH SOLN 10 ML OS PRN; +FENTANYL CITRATE INJ/PF 100 MCG/2 ML AMPUL ONE; +KETOROLAC TROMETHAMINE 0.45% 4 DROP/0.4 ML DROPERETTE OS PRN; +MIDAZOLAM 2 MG/2 ML INJ ONE; +ONDANSETRON HCL INJ/PF 4 MG/2 ML SDV ONE; +PREDNISOLONE ACETATE 1% OPH SUSP 5 ML OS PRN
[2020-10-23] MEDS ORDERED: LIDOCAINE 1%/PHENYLEPHRINE 1.5% 1 ML VIAL ONE (07:20)
[2020-10-23] MEDS ORDERED: CHONDR SU A NA/HYALUR INTRAOC KIT (SURGICARE) ONE (07:20)
[2020-10-23] MEDS ORDERED: EPINEPHRINE INJ/PF 1 MG/1 ML AMPULE ONE (07:20)
[2020-10-23] MEDS: CYCLOPENTOLATE 0.2%/PHENYLEPHRINE 1% OPH SOLN 2 ML OS PRN ×3 (07:45→08:02)
[2020-10-23] MEDS: TROPICAMIDE 1% OPH SOLN 15 ML OS PRN ×3 (07:45→08:02)
[2020-10-23] MEDS: BESIFLOXACIN HCL 0.6% OPH SUSP 5 ML BOTTLE OS PRN ×3 (07:45→08:31)
[2020-10-23] MEDS: TETRACAINE HCL 0.5% OPH SOLN 4 ML OS PRN ×3 (07:45→08:15)
--- NOTE | 2020-10-23 12:03 | Operative Report ---
Operative Report-[facility] Operative Report: DATE OF SURGERY: 10/23/2020 PREOPERATIVE DIAGNOSIS: Cataracts, left eye POSTOPERATIVE DIAGNOSIS: Cataract, left eye OPERATION: Cataract extraction with insertion of an IOL of the left eye. Intraocular Lens Model: [24.5 SN 60 WF] Underwent surgery for difficulty seeing small print SURGEON: Rivera Medrano MD ANESTHESIA: Topical PROCEDURE: After obtaining appropriate consent, the patient's left eye was prepped and draped in a sterile fashion as well as the surgeon in the sterile manner and cataract surgery was started. First a paracentesis blade was used to make a side-port incision. Viscoelastic was used to inflate the anterior chamber. Next a 2.4 mm incision was made with a 2.4 mm blade, clear corneal temporarily. A continuous capsulorrhexis was made using a cystotome and Utrata forceps. Following this hydrodissection was carried out to make the lens fully loose and mobile and it was rotated 90 degrees. Following this, a divide and conquer technique was used to phacoemulsify the lens. The remaining cortex was removed with an irrigation/aspiration. Provisc was instilled into the capsular bag to inflate the bag.The intraocular lens was placed. The remaining viscoelastic material was removed with irrigation/aspiration. Following this, the incision was found to be watertight. Besivance and Cosopt was instilled into the eye and a protective shield was placed over the eye. The patient was returned to the postoperative recovery in a stable condition.
== END 2020-10-23 09:05 | disposition home or self-care (01) ==
LOC: SC 07:15
PROVIDERS: ATTEND Internal Medicine
DX: H25.12 Age-related nuclear cataract, left eye (principal); H35.371 Puckering of macula, right eye; H52.4 Presbyopia; Z87.891 Personal history of nicotine dependence; E11.36 Type 2 diabetes mellitus with diabetic cataract; I10 Essential (primary) hypertension; J44.9 Chronic obstructive pulmonary disease, unspecified; E78.00 Pure hypercholesterolemia, unspecified; G47.33 Obstructive sleep apnea (adult) (pediatric); E66.9 Obesity, unspecified
CPT/HCPCS: 66984; 82962; 00142; V2632; J2250; J3490 ×2; A9270; J0171; J3010; J2405; 142